=== PATIENT | female | born 1945 | race Caucasian/White ===

== ENCOUNTER 2022-11-07 18:25 | Observation (INO) | payer MEDICARE ==
[2022-11-07] MEDS ORDERED: SODIUM CHLORIDE 0.9% 1,000 ML IV STA (18:43)
[2022-11-07] MEDS ORDERED: DIPH,PERTUS(ACELL)TETVAC-LF 0.5 ML VIAL IM ONE (18:45)
--- NOTE | 2022-11-07 18:58 | ED ---
General Adult HPI - General Chief complaint: Fall Stated complaint: Fall Time Seen by Provider: 11/07/22 18:29 Source: patient, EMS Mode of arrival: EMS Limitations: no limitations - History of Present Illness Initial comments: Patient presents to the ED by ambulance for evaluation. Patient reports that she fell down in her bathroom (patient is unsure how she felt) 5 days ago, and she states that she has been unable to get up off the floor since then. Per EMS, the patient reportedly prevented her from calling for an ambulance for her. Patient reports that her has been bringing her food and orange soda since she fell, so she has been eating and drinking somewhat. Patient is covered with feces on arrival to the ED. Patient states that her neighbor finally called for an ambulance for her today when she found out that the patie nt had been on the ground for 5 days. Patient admits to feeling generally weak. Patient denies having any specific site of pain. Patient denies fever or chills, headache, focal numbness/weakness/neuro deficit, visual changes, neck/back/extremity pain, chest pain, dyspnea, cough or cold symptoms, palpitations, abdominal pain, nausea or vomiting, diarrhea, bloody or melanotic stool, dysuria or urinary symptoms, or any other symptoms or complaints. Patient states that she is unsure of her last tetanus shot. - Related Data Home Medications Medication Instructions Recorded Confirmed Baclofen 10 mg PO TID PRN 11/07/22 11/07/22 Insulin Glargine [Lantus Vial] 20 unit SQ DAILY 11/07/22 11/07/22 glipiZIDE [Glucotrol] 10 mg PO BID 11/07/22 11/07/22 Allergies Allergy/AdvReac Type Severity Reaction Status Date / Time No Known Allergies Allergy Verified 11/07/22 20:29 Review of Systems ROS Statement: Those systems with pertinent positive or pertinent negative responses have been documented in the HPI. ROS Other: All systems not noted in ROS Statement are negative. Past Medical History Past Medical History: Diabetes Mellitus Past Surgical History: No Surgical Hx Reported Smoking Status: Never smoker Past Alcohol Use History: None Reported Past Drug Use History: None Reported General Exam Limitations: no limitations General appearance: alert, in no apparent distress Head exam: Present: atraumatic, normocephalic Eye exam: Present: normal appearance, PERRL, EOMI ENT exam: Present: mucous membranes dry, TM's normal bilaterally Neck exam: Present: other (Trachea is in midline). Absent: tenderness Respiratory exam: Present: normal lung sounds bilaterally. Absent: respiratory distress, wheezes, rales, rhonchi, stridor, chest wall tenderness Cardiovascular Exam: Present: normal rhythm, tachycardia, normal heart sounds, other (Normal radial and dorsalis pedis pulses bilaterally) GI/Abdominal exam: Present: soft. Absent: distended, tenderness, guarding Extremities exam: Present: other (Pelvis is stable and nontender; skin breakdow n/sores are noted to the patient's bilateral buttock folds posteriorly). Absent: tenderness, pedal edema, calf tenderness Back exam: Present: normal inspection. Absent: tenderness Neurological exam: Present: alert, oriented X3, CN II-XII intact. Absent: motor sensory deficit Psychiatric exam: Present: normal affect, normal mood Skin exam: Present: warm, dry, normal color Course Vital Signs 11/07/22 11/07/22 11/07/22 18:29 19:45 20:34 Temperature 97.8 F Pulse Rate 117 H 108 H 107 H Respiratory 18 18 Rate Blood Pressure 135/86 122/77 O2 Sat by Pulse 97 95 96 Oximetry - Reevaluation(s) Reevaluation #1: 11/07/22 21:14 Case, H&P, test results and ED management thus far were discussed with Dr. Ibarra. He accepts hospital admission. He has no further recommendations at this time. 11/07/22 21:21 Patient denies development of any new symptoms while in the ED. Patient remains alert and breathing comfortably. Patient's tachycardia is improving. Patient is aware of her test results, and she agrees with hospital admission at this time. EKG Findings - EKG Comments: EKG Findings:: ED physician interpretation (interpreted by me): Sinus tachycardia, ventricular rate 104 bpm, occasional PVCs, occasional premature supraventricular complexes, normal VA and QRS intervals, normal QT interval, normal axis, no ST or T-wave abnormality Medical Decision Making - Medical Decision Making Was pt. sent in by a medical professional or institution (, PA, ONCOLOGY PATIENT NAVIGATOR, urgent care, hospital, or detention...) When possible be specific @ -No Did you speak to anyone other than the patient for history (EMS, parent, family, police, friend...)? What history was obtained from this source @ -History was also obtained from EMS. Did you review nursing and triage notes (agree or disagree)? Why? @ -I reviewed and agree with nursing and triage notes Were old charts reviewed (outside hosp., previous admission, EMS record, old EKG, old radiological studies, urgent care reports/EKG's, detention records)? Report findings @ -No old charts were reviewed Differential Diagnosis (chest pain, altered mental status, abdominal pain women, abdominal pain men, vaginal bleeding, weakness, fever, dyspnea, syncope, headache, dizziness, GI bleed, back pain, seizure, CVA, palpatations, mental health, musculoskeletal)? @ -Differential Syncope: Fall, contusion, pressure ulcers, skin breakdown, syncope, cardiomyopathy, dysrhythmia,, NE, hypovolemia, anemia, intracranial hemorrhage, seizure, hypoglycemia, hyperglycemia, DKA, dehydration, electrolyte abnormality, renal failure, rhabdomyolysis, this is not meant to be an all-inclusive list. EKG interpreted by me (3pts min.). @ -As above X-rays interpreted by me (1pt min.). @ -Chest x-ray was reviewed myself and shows no acute abnormality. Pelvis x- ray was reviewed myself and shows no acute fracture. I agree with the radiologist's interpretations as above. CT interpreted by me (1pt min.). @ -Noncontrast head CT was reviewed myself and shows no acute abnormality. I agree with the radiologist's interpretation as above. U/S interpreted by me (1pt. min.). @ -None done What testing was considered but not performed or refused? (CT, X-rays, U/S, labs)? Why? @ -None What meds were considered but not given or refused? Why? @ -None Did you discuss the management of the patient with other professionals (professionals i.e. , PA, ONCOLOGY PATIENT NAVIGATOR, lab, RT, psych nurse, dialysis social worker, estate planning attorney, teacher, tactical intelligence officer, high risk case manager)? Give summary @ -As above Was smoking cessation discussed for >3mins.? @ -No Was critical care preformed (if so, how long)? @ -Yes, 45 minutes. Were there social determinants of health that impacted care today? How? (Homelessness, low income, unemployed, alcoholism, drug addiction, transportation, low edu. Level, literacy, decrease access to med. care, [facility], rehab)? @ -No Was there de-escalation of care discussed even if they declined (Discuss DNR or withdrawal of care, Hospice)? DNR status @ -No What co-morbidities impacted this encounter? (DM, HTN, Smoking, COPD, CAD, Cancer, CVA, ARF, Chemo, Hep., AIDS, mental health diagnosis, sleep apnea, morbid obesity)? @ -Diabetes Was patient admitted / discharged? Hospital course, mention meds given and route, prescriptions, significant lab abnormalities, going to OR and other perti nent info. @ -Patient's blood glucose is noted to be elevated, but she is not acidotic and she has a normal anion gap. Patient has been treated with IV fluids and subQ insulin. Patient's creatinine kinase level is also noted to be elevated, which I suspect is due to her prolonged time laying on the floor and subsequent development of mild rhabdomyolysis. Patient has been treated with IV fluids in the ED. Patient's imaging studies are fairly unremarkable. Patient's UA is suggestive of UTI. Patient has been treated with a dose of IV Rocephin in the ED. The rest of the patient's labs are fairly unremarkable. Will admit the patient to the hospital for continued IV fluid hydration and further evaluation/treatment. Dr. Ibrara has accepted hospital admission. Undiagnosed new problem with uncertain prognosis? @ -No Drug Therapy requiring intensive monitoring for toxicity (Heparin, Nitro, Insulin, Cardizem)? @ -No Were any procedures done? @ -No Diagnosis/symptom? @ -Dehydration Acute, or Chronic, or Acute on Chronic? @ -Acute Uncomplicated (without systemic symptoms) or Complicated (systemic symptoms)? @ -default Side effects of treatment? @ -No Exacerbation, Progression, or Severe Exacerbation? @ -No Poses a threat to life or bodily function? How? (Chest pain, USA, NE, pneumonia, PE, COPD, DKA, ARF, appy, cholecystitis, CVA, Diverticulitis, Homicidal, Suicidal, threat to staff... and all critical care pts) @ -No Diagnosis/symptom? @ -Hyperglycemia Acute, or Chronic, or Acute on Chronic? @ -Acute Uncomplicated (without systemic symptoms) or Complicated (systemic symptoms)? @ -default Side effects of treatment? @ -none Exacerbation, Progression, or Severe Exacerbation] @ -no Poses a threat to life or bodily function? @ -no Diagnosis/symptom? @ -Rhabdomyolysis Acute, or Chronic, or Acute on Chronic? @ -Acute Uncomplicated (without systemic symptoms) or Complicated (systemic symptoms)? @ -default Side effects of treatment? @ -none Exacerbation, Progression, or Severe Exacerbation] @ -no Poses a threat to life or bodily function? @ -Yes. If left untreated, further deterioration could lead to renal failure and pose a threat to life. Diagnosis/symptom? @ -UTI Acute, or Chronic, or Acute on Chronic? @ -Acute Uncomplicated (without systemic symptoms) or Complicated (systemic symptoms)? @ -default Side effects of treatment? @ -none Exacerbation, Progression, or Severe Exacerbation] @ -no Poses a threat to life or bodily function? @ -no Diagnosis/symptom? @ -Fall with prolonged time on floor Acute, or Chronic, or Acute on Chronic? @ -Acute Uncomplicated (without systemic symptoms) or Complicated (systemic symptoms)? @ -default Side effects of treatment? @ -none Exacerbation, Progression, or Severe Exacerbation] @ -no Poses a threat to life or bodily function? @ -no - Lab Data Result diagrams: 11/07/22 18:57 11/07/22 18:57 Lab Results 11/07/22 11/07/22 11/07/22 Range/Units 18:57 18:57 18:57 WBC 7.8 (3.8-10.6) k/uL RBC 4.56 (3.80-5.40) m/uL Hgb 14.1 (11.4-16.0) gm/dL Hct 45.4 (34.0-46.0) % MCV 99.6 (80.0-100.0) fL MCH 30.8 (25.0-35.0) pg MCHC 30.9 L (31.0-37.0) g/dL RDW 12.5 (11.5-15.5) % Plt Count 257 (150-450) k/uL MPV 9.3 Neutrophils % 76 % Lymphocytes % 14 % Monocytes % 7 % Eosinophils % 1 % Basophils % 0 % Neutrophils # 5.9 (1.3-7.7) k/uL Lymphocytes # 1.1 (1.0-4.8) k/uL Monocytes # 0.5 (0-1.0) k/uL Eosinophils # 0.1 (0-0.7) k/uL Basophils # 0.0 (0-0.2) k/uL Hypochromasia Slight PT 10.4 (9.0-12.0) sec INR 1.0 (<1.2) APTT 21.5 L (22.0-30.0) sec Sodium 134 L (137-145) mmol/L Potassium 4.2 (3.5-5.1) mmol/L Chloride 94 L (98-107) mmol/L Carbon Dioxide 29 (22-30) mmol/L Anion Gap 11 mmol/L BUN 43 H (7-17) mg/dL Creatinine 1.15 H (0.52-1.04) mg/dL Est GFR (CKD-EPI)AfAm 54 (>60 ml/min/1.73 sqM) Est GFR (CKD-EPI)NonAf 47 (>60 ml/min/1.73 sqM) Glucose 677 H* (74-99) mg/dL POC Glucose (mg/dL) (70-110) mg/dL POC Glu Sole Polisher ID Plasma Lactic Acid Nic (0.7-2.0) mmol/L Calcium 9.4 (8.4-10.2) mg/dL Magnesium 1.7 (1.6-2.3) mg/dL Total Bilirubin 1.0 (0.2-1.3) mg/dL AST 37 H (14-36) U/L ALT 23 (4-34) U/L Alkaline Phosphatase 112 (38-126) U/L Creatine Kinase 725 H (30-135) U/L Troponin I (0.000-0.034) ng/mL NT-Pro-B Natriuret Pep pg/mL Total Protein 6.8 (6.3-8.2) g/dL Albumin 3.7 (3.5-5.0) g/dL Lipase 233 (23-300) U/L Urine Color Urine Appearance (Clear) Urine pH (5.0-8.0) Ur Specific Carney (1.001-1.035) Urine Protein (Negative) Urine Glucose (UA) (Negative) Urine Ketones (Negative) Urine Blood (Negative) Urine Nitrite (Negative) Urine Bilirubin (Negative) Urine Urobilinogen (<2.0) mg/dL Ur Leukocyte Esterase (Negative) Urine RBC (0-5) /hpf Urine WBC (0-5) /hpf Ur Squamous Epith Cells (0-4) /hpf Urine Bacteria (None) /hpf Urine Mucus (None) /hpf Acetone, Qual (Negative) 11/07/22 11/07/22 11/07/22 Range/Units 18:57 18:57 18:57 WBC (3.8-10.6) k/uL RBC (3.80-5.40) m/uL Hgb (11.4-16.0) gm/dL Hct (34.0-46.0) % MCV (80.0-100.0) fL MCH (25.0-35.0) pg MCHC (31.0-37.0) g/dL RDW (11.5-15.5) % Plt Count (150-450) k/uL MPV Neutrophils % % Lymphocytes % % Monocytes % % Eosinophils % % Basophils % % Neutrophils # (1.3-7.7) k/uL Lymphocytes # (1.0-4.8) k/uL Monocytes # (0-1.0) k/uL Eosinophils # (0-0.7) k/uL Basophils # (0-0.2) k/uL Hypochromasia PT (9.0-12.0) sec INR (<1.2) APTT (22.0-30.0) sec Sodium (137-145) mmol/L Potassium (3.5-5.1) mmol/L Chloride (98-107) mmol/L Carbon Dioxide (22-30) mmol/L Anion Gap mmol/L BUN (7-17) mg/dL Creatinine (0.52-1.04) mg/dL Est GFR (CKD-EPI)AfAm (>60 ml/min/1.73 sqM) Est GFR (CKD-EPI)NonAf (>60 ml/min/1.73 sqM) Glucose (74-99) mg/dL POC Glucose (mg/dL) (70-110) mg/dL POC Glu Sole Polisher ID Plasma Lactic Acid Nic 1.8 (0.7-2.0) mmol/L Calcium (8.4-10.2) mg/dL Magnesium (1.6-2.3) mg/dL Total Bilirubin (0.2-1.3) mg/dL AST (14-36) U/L ALT (4-34) U/L Alkaline Phosphatase (38-126) U/L Creatine Kinase (30-135) U/L Troponin I 0.017 (0.000-0.034) ng/mL NT-Pro-B Natriuret Pep 639 pg/mL Total Protein (6.3-8.2) g/dL Albumin (3.5-5.0) g/dL Lipase (23-300) U/L Urine Color Urine Appearance (Clear) Urine pH (5.0-8.0) Ur Specific Carney (1.001-1.035) Urine Protein (Negative) Urine Glucose (UA) (Negative) Urine Ketones (Negative) Urine Blood (Negative) Urine Nitrite (Negative) Urine Bilirubin (Negative) Urine Urobilinogen (<2.0) mg/dL Ur Leukocyte Esterase (Negative) Urine RBC (0-5) /hpf Urine WBC (0-5) /hpf Ur Squamous Epith Cells (0-4) /hpf Urine Bacteria (None) /hpf Urine Mucus (None) /hpf Acetone, Qual (Negative) 11/07/22 11/07/22 11/07/22 Range/Units 18:57 20:19 20:56 WBC (3.8-10.6) k/uL RBC (3.80-5.40) m/uL Hgb (11.4-16.0) gm/dL Hct (34.0-46.0) % MCV (80.0-100.0) fL MCH (25.0-35.0) pg MCHC (31.0-37.0) g/dL RDW (11.5-15.5) % Plt Count (150-450) k/uL MPV Neutrophils % % Lymphocytes % % Monocytes % % Eosinophils % % Basophils % % Neutrophils # (1.3-7.7) k/uL Lymphocytes # (1.0-4.8) k/uL Monocytes # (0-1.0) k/uL Eosinophils # (0-0.7) k/uL Basophils # (0-0.2) k/uL Hypochromasia PT (9.0-12.0) sec INR (<1.2) APTT (22.0-30.0) sec Sodium (137-145) mmol/L Potassium (3.5-5.1) mmol/L Chloride (98-107) mmol/L Carbon Dioxide (22-30) mmol/L Anion Gap mmol/L BUN (7-17) mg/dL Creatinine (0.52-1.04) mg/dL Est GFR (CKD-EPI)AfAm (>60 ml/min/1.73 sqM) Est GFR (CKD-EPI)NonAf (>60 ml/min/1.73 sqM) Glucose (74-99) mg/dL POC Glucose (mg/dL) 583 H (70-110) mg/dL POC Glu Sole Polisher ID Corie Johnston Plasma Lactic Acid Nic (0.7-2.0) mmol/L Calcium (8.4-10.2) mg/dL Magnesium (1.6-2.3) mg/dL Total Bilirubin (0.2-1.3) mg/dL AST (14-36) U/L ALT (4-34) U/L Alkaline Phosphatase (38-126) U/L Creatine Kinase (30-135) U/L Troponin I (0.000-0.034) ng/mL NT-Pro-B Natriuret Pep pg/mL Total Protein (6.3-8.2) g/dL Albumin (3.5-5.0) g/dL Lipase (23-300) U/L Urine Color Colorless Urine Appearance Clear (Clear) Urine pH 5.0 (5.0-8.0) Ur Specific Carney 1.023 (1.001-1.035) Urine Protein Negative (Negative) Urine Glucose (UA) 4+ H (Negative) Urine Ketones 1+ H (Negative) Urine Blood Negative (Negative) Urine Nitrite Positive H (Negative) Urine Bilirubin Negative (Negative) Urine Urobilinogen <2.0 (<2.0) mg/dL Ur Leukocyte Esterase Moderate H (Negative) Urine RBC 1 (0-5) /hpf Urine WBC 29 H (0-5) /hpf Ur Squamous Epith Cells <1 (0-4) /hpf Urine Bacteria Occasional H (None) /hpf Urine Mucus Rare H (None) /hpf Acetone, Qual Positive (Negative) - Radiology Data Chest x-ray: Low lung volumes without focal airspace consolidation. Prominent cardiac silhouette and perihilar markings are likely accentuated from low lung volumes. Pelvis x-ray: No acute osseous pathology. Noncontrast head CT: No acute intracranial process. Critical Care Time Critical Care Time: Yes Total Critical Care Time: 45 Disposition Clinical Impression: Fall, Sore on leg, Dehydration, Hyperglycemia, Rhabdomyolysis, UTI (urinary tract infection) Disposition: ADMITTED IP TO THIS [facility] Condition: Stable Is patient prescribed a controlled substance at d/c from ED?: No Referrals: Delmy Morris MD [Primary Care Provider] - 1-2 days Time of Disposition: 21:19
[2022-11-07 19:44] LABS: Basophils % (A) 0 %; Eosinophils # (A) 0.1 k/uL (0-0.7); Eosinophils % (A) 1 %; HCT 45.4 % (34.0-46.0); HGB 14.1 gm/dL (11.4-16.0); Hypochromasia Slight; Lymphocytes # (A) 1.1 k/uL (1.0-4.8); Lymphocytes % (A) 14 %; MCH 30.8 pg (25.0-35.0); MCHC 30.9 g/dL (31.0-37.0); MCV 99.6 fL (80.0-100.0); Mean Platelet Volume 9.3; Monocytes # (A) 0.5 k/uL (0-1.0); Monocytes % (A) 7 %; Neutrophils # (A) 5.9 k/uL (1.3-7.7); Neutrophils % (A) 76 %; Platelet Count 257 k/uL (150-450); RBC 4.56 m/uL (3.80-5.40); RDW 12.5 % (11.5-15.5); WBC 7.8 k/uL (3.8-10.6)
[2022-11-07 20:06] LABS: Albumin 3.7 g/dL (3.5-5.0); Calcium 9.4 mg/dL (8.4-10.2); Magnesium 1.7 mg/dL (1.6-2.3); Potassium 4.2 mmol/L (3.5-5.1); Total Protein 6.8 g/dL (6.3-8.2)
[2022-11-07 20:07] LABS: Partial Thromboplastin Time 21.5 sec (22.0-30.0)
[2022-11-07 20:14] LABS: Prothrombin Time 10.4 sec (9.0-12.0)
[2022-11-07 20:19] LABS: Appearance,Urine Clear (Clear); Bacteria,Urine Occasional /hpf; Bilirubin,Urine Negative (Negative); Blood,Urine Negative (Negative); Color,Urine Colorless; Glucose,Urine (UA) 4+ (Negative); Ketones,Urine 1+ (Negative); Leukocyte Esterase,Urine Moderate (Negative); Mucus,Urine Rare /hpf; Nitrite,Urine Positive (Negative); Protein,Urine Negative (Negative); RBC,Urine 1 /hpf (0-5); Specific Gravity,Urine 1.023 (1.001-1.035); Squamous Epithelial Cell,Urine <1 /hpf (0-4); Urobilinogen,Urine <2.0 mg/dL (<2.0); WBC,Urine 29 /hpf (0-5)
[2022-11-07] MEDS ORDERED: INSULIN REGULAR 100 UNIT/ML VIAL (IM/SQ) SQ STA (20:20)
[2022-11-07] MEDS ORDERED: SODIUM CHLORIDE 0.9% 500 ML 500 ML IV ONE (20:20)
--- NOTE | 2022-11-07 20:31 | CT ---
EXAMINATION TYPE: CT brain wo con CT DLP: mGycm, Automated exposure control for dose reduction was used. DATE OF EXAM: 11/07/2022 8:14 PM COMPARISON: No relevant priors. CLINICAL INDICATION:Female, 76 years old with history of weakness, TECHNIQUE: Brain: Axial CT images of the brain were obtained with coronal and sagittal reformats created and rev iewed. Contrast used: None. Oral contrast used: None. FINDINGS: Brain: Extra-axial spaces: No abnormal extra-axial fluid collections. Ventricular system: Mildly prominent, but within normal limit. Cerebral parenchyma: No acute intraparenchymal hemorrhage or mass effect. The wilde-white junction is well differentiated. Cerebellum: Unremarkable. Mass effect: No evidence of midline shift. Intracranial vasculature: Atherosclerotic calcifications of the intracranial vessels. Soft tissues: Normal. Calvarium/osseous structures: No depressed skull fracture. Paranasal sinuses and mastoid air cells: Mild scattered paranasal sinus disease.. Mastoid air cells a re Clear Visualized orbits: Orbital contents are intact. IMPRESSION: No acute intracranial process.
--- NOTE | 2022-11-07 20:39 | XR ---
EXAMINATION TYPE: XR chest 1V portable DATE OF EXAM: 11/07/2022 8:08 PM COMPARISON: No relevant priors TECHNIQUE: XR chest 1V portable . CLINICAL INDICATION:Female, 76 years old with history of weakness; FINDINGS: Lungs/Pleura: Low lung volumes are present. There is no evidence of pleural effusion, focal consolida tion, or pneumothorax. Pulmonary vascularity: Prominent perihilar vascular markings which is likely accentuated from low jim g volumes. Heart/mediastinum: Cardiomediastinal silhouette is prominent in size. Musculoskeletal: No acute osseous pathology. IMPRESSION: Low lung volumes without focal airspace consolidation. Prominent cardiac silhouette and perihilar mar kings are likely accentuated from low lung volumes.
--- NOTE | 2022-11-07 20:42 | XR ---
EXAMINATION TYPE: XR pelvis AP view DATE OF EXAM: 11/07/2022 8:08 PM INDICATION: Patient age:Female; 76 years old; Reason for study: fall; [facility]. COMPARISON: None. TECHNIQUE: The pelvis was examined in the AP projection. FINDINGS: No evidence of any acute osseous pathology, joint dislocation, or soft tissue swelling. Mil d degenerative changes of the lumbar spine. IMPRESSION: No acute osseous pathology.
[2022-11-07 20:57] LABS: Glucose,Whole Blood 583 mg/dL (70-110)
[2022-11-07] MEDS ORDERED: NALOXONE 0.4 MG/ML 1 ML VIAL IV PRN (21:19)
[2022-11-07 22:02] LABS: Glucose,Whole Blood 498 mg/dL (70-110)
[2022-11-07] MEDS: SODIUM CHLORIDE 0.9% 1,000 ML IV SCH (22:38)
[2022-11-07 23:17] LABS: Glucose,Whole Blood 485 mg/dL (70-110)
[2022-11-07] MEDS ORDERED: INSULIN DETEMIR (LEVEMIR) 100 UNIT/ML SYR SQ STA (23:37)
[2022-11-07] MEDS ORDERED: DEXTROSE 50% SYRINGE 50 ML IVP PRN ×2 (23:38)
[2022-11-07] MEDS ORDERED: INSULIN ASPART (NovoLOG) 100 UNIT/ML VIAL SQ ONE (23:38)
[2022-11-08 06:10] LABS: Glucose,Whole Blood 75 mg/dL (70-110)
[2022-11-08] MEDS: INSULIN ASPART (NovoLOG) 100 UNIT/ML VIAL SQ SCH ×4 (06:12→20:59)
[2022-11-08 08:23] LABS: Basophils % (A) 0 %; Eosinophils # (A) 0.2 k/uL (0-0.7); Eosinophils % (A) 2 %; HCT 41.2 % (34.0-46.0); HGB 13.2 gm/dL (11.4-16.0); Lymphocytes # (A) 1.4 k/uL (1.0-4.8); Lymphocytes % (A) 19 %; MCH 30.7 pg (25.0-35.0); MCV 95.7 fL (80.0-100.0); Mean Platelet Volume 9.8; Monocytes # (A) 0.5 k/uL (0-1.0); Monocytes % (A) 6 %; Neutrophils # (A) 5.4 k/uL (1.3-7.7); Neutrophils % (A) 70 %; Platelet Count 226 k/uL (150-450); RDW 12.7 % (11.5-15.5); WBC 7.6 k/uL (3.8-10.6)
[2022-11-08 08:37] LABS: Albumin 3.2 g/dL (3.5-5.0); Calcium 9.1 mg/dL (8.4-10.2); Potassium 3.4 mmol/L (3.5-5.1); Total Bilirubin 0.9 mg/dL (0.2-1.3); Total Protein 6.2 g/dL (6.3-8.2)
[2022-11-08] MEDS ORDERED: LACTULOSE 20 GM/30 ML CUP PO PRN (10:19)
[2022-11-08] MEDS ORDERED: MELATONIN 3 MG TABLET PO PRN (10:19)
[2022-11-08] MEDS ORDERED: CALCIUM CARBONATE 500 MG CHEWABLE PO PRN (10:19)
[2022-11-08] MEDS ORDERED: LORazepam 0.5 MG TAB PO PRN (10:19)
[2022-11-08] MEDS ORDERED: ONDANSETRON 4 MG/2 ML VIAL IVP PRN (10:19)
[2022-11-08] MEDS ORDERED: glipiZIDE 10 MG TAB PO SCH (10:45)
[2022-11-08 11:37] LABS: Glucose,Whole Blood 292 mg/dL (70-110)
[2022-11-08] MEDS ORDERED: POTASSIUM CHLORIDE ER 20 MEQ TAB.ER PO STA (12:05)
[2022-11-08] MEDS: LACTATED RINGERS 1,000 ML IV SCH (12:12)
[2022-11-08] MEDS: INSULIN DETEMIR (LEVEMIR) 100 UNIT/ML SYR SQ SCH (12:13)
--- NOTE | 2022-11-08 14:02 | P.HPIM ---
History of Present Illness H&P Date: 11/08/22 Chief Complaint: On the floor This is a pleasant 76-year-old patient, follows Dr. Delmy Morris. Patient on the baseline is somewhat unsteady in walking. Does not use a cane or walker. She fell down in the bathroom about 5 years ago. Not sure how that happened but does note dizziness lightheadedness or any chest pain or palpitation. Patient prevented her from [place] the EMS was somewhat embarrassed about the same. was bringing off or to the bathroom. When brought into the ER she was, in his facies. And the neighbor finally called the ambulance. She is having some aches and pains but no severe pain. Negative for fracture in the ER. No fever no chills. Patient having some fullness in the lower pelvic area and some urine discomfort. Also had a glucose of 677 in the ER. Given IV fluids. Decreased appetite Review of systems: GEN.: Tired, decreased appetite EYES: None HEENT: None NECK: None RESPIRATORY: None CARDIOVASCULAR: None GASTROINTESTINAL: None GENITOURINARY: Urinary incontinence, some dysuria MUSCULOSKELETAL: Aches and pains LYMPHATICS: None HEMATOLOGICAL: None PSYCHIATRY: None NEUROLOGICAL: None Past medical history to include: Diabetes, arthritis Social history: Does not smoke or drink alcohol. . Physical examination: VITAL SIGNS: 98.8, 120, 16, 132/76, 93% room air GENERAL: BMI 37.8, declining but awake tired. EYES: Pupils equal. Conjunctiva normal. HEENT: External appearance of nose and ears normal, oral cavity grossly normal. NECK: JVD not raised; masses not palpable. HEART: First and second heart sounds are normal; no edema. LUNGS: Respiratory rate normal; clear to auscultation. ABDOMEN: Soft, nontender, liver spleen not palpable, no masses palpable. PSYCH: Alert and oriented x3; mood and affect normal. MUSCULOSKELETAL:No Clubbing/cyanosis;muscles-grossly intact. OA NEUROLOGICAL: Cranial nerves grossly intact; no facial asymmetry, power and sensation grossly intact. LYMPHATICS: No lymph nodes palpable in the axilla and neck INVESTIGATIONS, reviewed in the clinical context: November 08: White count 7.6 hemoglobin 13.2 platelets 226 potassium 3.4 BUN 33 creatinine 0.96 blood glucose 172 November 07: White count 7.8 hemoglobin 14.1 platelets 257 dose potassium 4.2 BUN 43 creatinine 1.15 glucose 677 Troponin I 0.017 proBNP 639 UA positive for nitrite, leukoesterase, WBC Serum acetone positive. Creatinine kinase: 725 Assessment and plan: -Acute diabetic ketoacidosis. Accu-Cheks are coming down. Diabetic diet. Follow Accu-Cheks -Patient had a fall, no precipitating factor including dizziness lightheadedness, chest pain palpitation. May be mechanical from losing balance. -Acute UTI with cystitis IV ceftriaxone -Diabetes mellitus type 2, uncontrolled with hypoglycemia Patient's current poor appetite. Levemir. Hold oral hypoglycemic -Obesity BMI 37.8 Weight loss measures -Baseline gait dysfunction possibly precipitating fall. PTOT. -Full code Past Medical History Past Medical History: Diabetes Mellitus History of Any Multi-Drug Resistant Organisms: None Reported Past Surgical History: No Surgical Hx Reported Smoking Status: Never smoker Past Alcohol Use History: None Reported Past Drug Use History: None Reported Medications and Allergies Home Medications Medication Instructions Recorded Confirmed Type Baclofen 10 mg PO TID PRN 11/07/22 11/07/22 History Insulin Glargine [Lantus Vial] 20 unit SQ DAILY 11/07/22 11/07/22 History glipiZIDE [Glucotrol] 10 mg PO BID 11/07/22 11/07/22 History Allergies Allergy/AdvReac Type Severity Reaction Status Date / Time No Known Allergies Allergy Verified 11/07/22 20:29 Physical Exam Vitals: Vital Signs Temp Pulse Pulse Resp BP BP Pulse Ox 11/08/22 09:50 96 11/08/22 09:45 98.8 F 120 H 16 132/76 93 L 11/08/22 04:00 119 H 16 123/71 94 L 11/07/22 23:00 97.9 F 117 H 16 140/67 96 11/07/22 22:30 115 H 11/07/22 22:26 98 F 20 134/61 96 11/07/22 21:41 105 H 16 153/88 97 11/07/22 20:34 107 H 96 11/07/22 19:45 108 H 18 122/77 95 11/07/22 18:29 97.8 F 117 H 18 135/86 97 Intake and Output 11/07/22 11/08/22 11/08/22 22:59 06:59 14:59 Intake Total 540 180 Output Total 300 Balance 240 180 Intake: Oral 540 180 Output: Urine 300 Other: Voiding Method External Catheter Weight 99.79 kg 99.79 kg Results CBC & Chem 7: 11/08/22 07:46 11/08/22 07:46 Labs: Abnormal Lab Results - Last 24 Hours (Table) 11/07/22 11/07/22 11/07/22 Range/Units 18:57 18:57 18:57 MCHC 30.9 L (31.0-37.0) g/dL APTT 21.5 L (22.0-30.0) sec Sodium 134 L (137-145) mmol/L Potassium (3.5-5.1) mmol/L Chloride 94 L (98-107) mmol/L BUN 43 H (7-17) mg/dL Creatinine 1.15 H (0.52-1.04) mg/dL Glucose 677 H* (74-99) mg/dL POC Glucose (mg/dL) (70-110) mg/dL AST 37 H (14-36) U/L Creatine Kinase 725 H (30-135) U/L Total Protein (6.3-8.2) g/dL Albumin (3.5-5.0) g/dL Urine Glucose (UA) (Negative) Urine Ketones (Negative) Urine Nitrite (Negative) Ur Leukocyte Esterase (Negative) Urine WBC (0-5) /hpf Urine Bacteria (None) /hpf Urine Mucus (None) /hpf 11/07/22 11/07/22 11/07/22 Range/Units 18:57 20:56 21:59 MCHC (31.0-37.0) g/dL APTT (22.0-30.0) sec Sodium (137-145) mmol/L Potassium (3.5-5.1) mmol/L Chloride (98-107) mmol/L BUN (7-17) mg/dL Creatinine (0.52-1.04) mg/dL Glucose (74-99) mg/dL POC Glucose (mg/dL) 583 H 498 H (70-110) mg/dL AST (14-36) U/L Creatine Kinase (30-135) U/L Total Protein (6.3-8.2) g/dL Albumin (3.5-5.0) g/dL Urine Glucose (UA) 4+ H (Negative) Urine Ketones 1+ H (Negative) Urine Nitrite Positive H (Negative) Ur Leukocyte Esterase Moderate H (Negative) Urine WBC 29 H (0-5) /hpf Urine Bacteria Occasional H (None) /hpf Urine Mucus Rare H (None) /hpf 11/07/22 11/08/22 11/08/22 Range/Units 23:15 07:46 07:46 MCHC (31.0-37.0) g/dL APTT (22.0-30.0) sec Sodium (137-145) mmol/L Potassium 3.4 L (3.5-5.1) mmol/L Chloride (98-107) mmol/L BUN 33 H (7-17) mg/dL Creatinine (0.52-1.04) mg/dL Glucose 172 H (74-99) mg/dL POC Glucose (mg/dL) 485 H (70-110) mg/dL AST (14-36) U/L Creatine Kinase 345 H (30-135) U/L Total Protein 6.2 L (6.3-8.2) g/dL Albumin 3.2 L (3.5-5.0) g/dL Urine Glucose (UA) (Negative) Urine Ketones (Negative) Urine Nitrite (Negative) Ur Leukocyte Esterase (Negative) Urine WBC (0-5) /hpf Urine Bacteria (None) /hpf Urine Mucus (None) /hpf
[2022-11-08 16:47] LABS: Glucose,Whole Blood 307 mg/dL (70-110)
[2022-11-08 19:57] LABS: Glucose,Whole Blood 336 mg/dL (70-110)
[2022-11-08] MEDS: ACETAMINOPHEN TAB 325 MG TAB PO PRN (21:00)
[2022-11-09 06:03] LABS: Glucose,Whole Blood 79 mg/dL (70-110)
[2022-11-09 07:31] LABS: Calcium 8.7 mg/dL (8.4-10.2); Potassium 3.6 mmol/L (3.5-5.1)
[2022-11-09 08:37] LABS: Glucose,Whole Blood 155 mg/dL (70-110)
[2022-11-09] MEDS: INSULIN ASPART (NovoLOG) 100 UNIT/ML VIAL SQ SCH ×4 (08:39→21:11)
[2022-11-09] MEDS: INSULIN DETEMIR (LEVEMIR) 100 UNIT/ML SYR SQ SCH (08:39)
[2022-11-09] MEDS: BACLOFEN 10 MG TAB PO PRN (08:42)
[2022-11-09] MEDS: ACETAMINOPHEN TAB 325 MG TAB PO PRN (08:42)
[2022-11-09] MEDS: LACTATED RINGERS 1,000 ML IV SCH ×2 (10:40→16:41)
[2022-11-09 11:27] LABS: Glucose,Whole Blood 255 mg/dL (70-110)
[2022-11-09 13:01] VITALS: BMI 37.8
--- NOTE | 2022-11-09 14:41 | P.PN ---
Progress Note - Text Progress Note Date: 11/09/22 Chief Complaint: On the floor This is a pleasant 76-year-old patient, follows Dr. Delmy Morris. Patient on the baseline is somewhat unsteady in walking. Does not use a cane or walker. She fell down in the bathroom about 5 years ago. Not sure how that happened but does note dizziness lightheadedness or any chest pain or palpitation. Patient prevented her from [place] the EMS was somewhat embarrassed about the same. was bringing off or to the bathroom. When brought into the ER she was, in his facies. And the neighbor finally called the ambulance. She is having some aches and pains but no severe pain. Negative for fracture in the ER. No fever no chills. Patient having some fullness in the lower pelvic area and some urine discomfort. Also had a glucose of 677 in the ER. Given IV fluids. Decreased appetite November 09: Feeling better. Sitting at the edge of the bed. Eating well. Her left PTOT see the patient for a possible rehab. Discussed with the patient, patient's son and [id number] the bedside. Active Medications Acetaminophen (Acetaminophen Tab 325 Mg Tab) 650 mg PO Q6HR PRN PRN Reason: Mild Pain or Fever > 100.5 Last Admin: 11/09/22 08:42 Dose: 650 mg Baclofen (Baclofen 10 Mg Tab) 10 mg PO TID PRN PRN Reason: Pain Last Admin: 11/09/22 08:42 Dose: 10 mg Calcium Carbonate/Glycine (Calcium Carbonate 500 Mg Chewable) 1,000 mg PO Q4HR PRN PRN Reason: Dyspepsia Dextrose/Water (Dextrose 50% Syringe 50 Ml) 25 ml IVP PER PROTOCOL PRN; Protocol PRN Reason: Hypoglycemia Dextrose/Water (Dextrose 50% Syringe 50 Ml) 50 ml IVP PER PROTOCOL PRN; Protocol PRN Reason: Hypoglycemia Lactated Ringer's (Lactated Ringers) 1,000 mls @ 75 mls/hr IV .[id number] [facility] Last Admin: 11/09/22 10:40 Dose: Not Given Ceftriaxone Sodium 1 gm/ (Sodium Chloride) 50 mls @ 100 mls/hr IVPB Q12HR [facility]ILA; Protocol Last Admin: 11/09/22 08:39 Dose: 100 mls/hr Insulin Aspart (Insulin Aspart (Novolog) 100 Unit/Ml Vial) 0 unit SQ ACHS [facility]; Protocol Last Admin: 11/09/22 08:39 Dose: Not Given Insulin Detemir (Insulin Detemir (Levemir) 100 Unit/Ml Syr) 20 unit SQ DAILY@0700 [facility] Last Admin: 11/09/22 08:39 Dose: 20 unit Lactulose (Lactulose 20 Gm/30 Ml Cup) 20 gm PO DAILY PRN PRN Reason: Constipation Lorazepam (Lorazepam 0.5 Mg Tab) 0.5 mg PO Q6HR PRN PRN Reason: Anxiety Melatonin (Melatonin 3 Mg Tablet) 3 mg PO HS PRN PRN Reason: Insomnia Naloxone HCl (Naloxone 0.4 Mg/Ml 1 Ml Vial) 0.2 mg IV Q2M PRN PRN Reason: Opioid Reversal Ondansetron HCl (Ondansetron 4 Mg/2 Ml Vial) 4 mg IVP Q8HR PRN PRN Reason: Nausea And Vomiting Past medical history to include: Diabetes, arthritis Social history: Does not smoke or drink alcohol. . Physical examination: VITAL SIGNS: 98, 111, 16, 135-70, 96% room air GENERAL: Sitting edge of the bed, comfortable EYES: Pupils equal. Conjunctiva normal. HEENT: External appearance of nose and ears normal, oral cavity grossly normal. NECK: JVD not raised; masses not palpable. HEART: First and second heart sounds are normal; no edema. LUNGS: Respiratory rate normal; clear to auscultation. ABDOMEN: Soft, nontender, liver spleen not palpable, no masses palpable. PSYCH: Alert and oriented x3; mood and affect normal. MUSCULOSKELETAL:No Clubbing/cyanosis;muscles-grossly intact. OA INVESTIGATIONS, reviewed in the clinical context: November 09: Potassium 3.6 creatinine 0.91 November 08: White count 7.6 hemoglobin 13.2 platelets 226 potassium 3.4 BUN 33 creatinine 0.96 blood glucose 172 November 07: White count 7.8 hemoglobin 14.1 platelets 257 dose potassium 4.2 BUN 43 creatinine 1.15 glucose 677 Troponin I 0.017 proBNP 639 UA positive for nitrite, leukoesterase, WBC Serum acetone positive. Creatinine kinase: 725 Assessment and plan: -Acute diabetic ketoacidosis. Improved Accu-Cheks are coming down. Diabetic diet. Follow Accu-Cheks -Patient had a fall, no precipitating factor including dizziness lightheadedness, chest pain palpitation. May be mechanical from losing balance. -Acute UTI with cystitis IV ceftriaxone -Diabetes mellitus type 2, uncontrolled with hyperglycemia Patient's current poor appetite. Levemir. Hold oral hypoglycemic -Obesity BMI 37.8 Weight loss measures -Baseline gait dysfunction possibly precipitating fall. PTOT. -Full code PTOT. Continue current medications. Change to oral Omnicef. Questions answered. Discussed with case maker.
[2022-11-09 16:19] LABS: Glucose,Whole Blood 283 mg/dL (70-110)
[2022-11-09] MEDS: SODIUM CHLORIDE 0.9% 1,000 ML IV SCH (19:52)
[2022-11-09 19:59] LABS: Glucose,Whole Blood 315 mg/dL (70-110)
[2022-11-10 03:54] VITALS: TEMP 98.3
[2022-11-10 06:02] LABS: Glucose,Whole Blood 100 mg/dL (70-110)
[2022-11-10] MEDS: LACTATED RINGERS 1,000 ML IV SCH (06:09)
[2022-11-10] MEDS: INSULIN ASPART (NovoLOG) 100 UNIT/ML VIAL SQ SCH ×2 (06:09→12:29)
[2022-11-10] MEDS: INSULIN DETEMIR (LEVEMIR) 100 UNIT/ML SYR SQ SCH (06:44)
[2022-11-10 08:55] VITALS: RESP 18
[2022-11-10] MEDS: ACETAMINOPHEN TAB 325 MG TAB PO PRN (08:55)
[2022-11-10] MEDS: BACLOFEN 10 MG TAB PO PRN (08:55)
[2022-11-10 11:57] LABS: Glucose,Whole Blood 343 mg/dL (70-110)
[2022-11-10 12:26] VITALS: BP 139/67; PULSE 111
[2022-11-10] MEDS: metFORMIN 500 MG TAB PO SCH ×2 (13:53)
--- NOTE | 2022-11-10 14:04 | P.DS ---
Providers Date of admission: 11/07/22 21:21 Expected date of discharge: 11/10/22 Attending physician: Trevor Ibarra Primary care physician: Delmy Morris [facility] Course: Chief Complaint: On the floor This is a pleasant 76-year-old patient, follows Dr. Delmy Morris. Patient on the baseline is somewhat unsteady in walking. Does not use a cane or walker. She fell down in the bathroom about 5 years ago. Not sure how that happened but does note dizziness lightheadedness or any chest pain or palpitation. Patient prevented her from [place] the EMS was somewhat embarrassed about the same. was bringing off or to the bathroom. When brought into the ER she was, in his facies. And the neighbor finally called the ambulance. She is having some aches and pains but no severe pain. Negative for fracture in the ER. No fever no chills. Patient having some fullness in the lower pelvic area and some urine discomfort. Also had a glucose of 677 in the ER. Given IV fluids. Decreased appetite November 09: Feeling better. Sitting at the edge of the bed. Eating well. Her left PTOT see the patient for a possible rehab. Discussed with the patient, patient's son and [id number] the bedside. November 10: Sitting up in bed. Eating well. Accu-Cheks to the higher side. Metformin 500 mg before meals 3 times a day added. Continue Levemir. Confirmed with social work program coordinator. Going to [facility] rehab [facility] today. Discussed with the patient, son and the [id number] at the bedside. Questions answered. 3 more days of Ceftin to complete course Discussion and discharge planning more than 35 minutes Past medical history to include: Diabetes, arthritis Social history: Does not smoke or drink alcohol. . Physical examination: VITAL SIGNS: 98.3, 99, 18, 11/, 97% room air GENERAL: Sitting edge of the bed, eating lunch EYES: Pupils equal. Conjunctiva normal. HEENT: External appearance of nose and ears normal, oral cavity grossly normal. NECK: JVD not raised; masses not palpable. HEART: First and second heart sounds are normal; no edema. LUNGS: Respiratory rate normal; clear to auscultation. ABDOMEN: Soft, nontender, liver spleen not palpable, no masses palpable. PSYCH: Alert and oriented x3; mood and affect normal. MUSCULOSKELETAL:No Clubbing/cyanosis;muscles-grossly intact. OA INVESTIGATIONS, reviewed in the clinical context: COVID-19: Not detected November 09: Potassium 3.6 creatinine 0.91 November 08: White count 7.6 hemoglobin 13.2 platelets 226 potassium 3.4 BUN 33 creatinine 0.96 blood glucose 172 November 07: White count 7.8 hemoglobin 14.1 platelets 257 dose potassium 4.2 BUN 43 creatinine 1.15 glucose 677 Troponin I 0.017 proBNP 639 UA positive for nitrite, leukoesterase, WBC Serum acetone positive. Creatinine kinase: 725 Assessment and plan: -Acute diabetic ketoacidosis. Improved Accu-Cheks are coming down. Diabetic diet. Follow Accu-Cheks -Patient had a fall, no precipitating factor including dizziness lightheadedness, chest pain palpitation. mechanical from losing balance. -Acute UTI with cystitis IV ceftriaxone. 3 more days of Ceftin. -Diabetes mellitus type 2, uncontrolled with hyperglycemia Eating well Levemir. 24 units daily. Add metformin 5 mg before meals 3 times a day -Obesity BMI 37.8 Weight loss measures -Baseline gait dysfunction possibly precipitating fall. PTOT. -Full code Disposition: Rehab at [facility] Patient Condition at Discharge: Stable Plan - Discharge Summary Discharge Rx Participant: Yes New Discharge Prescriptions: New Lactulose [Cephulac] 20 gm PO DAILY PRN ml PRN Reason: Constipation Acetaminophen Tab [Tylenol] 650 mg PO Q6HR PRN tab PRN Reason: Mild Pain Or Fever > 100.5 metFORMIN HCL [Glucophage] 500 mg PO TID #1 tablet INSULIN ASPART (NovoLOG) [NovoLOG (formulary)] 0 unit SQ ACHS each cefUROXime axetiL [Ceftin] 500 mg PO BID #6 tab Continue Insulin Glargine [Lantus Vial] 20 unit SQ DAILY Baclofen 10 mg PO TID PRN PRN Reason: Pain Discontinued glipiZIDE [Glucotrol] 10 mg PO BID Discharge Medication List Baclofen 10 mg PO TID PRN 11/07/22 [History] Insulin Glargine [Lantus Vial] 20 unit SQ DAILY 11/07/22 [History] Acetaminophen Tab [Tylenol] 650 mg PO Q6HR PRN tab 11/10/22 [Rx] INSULIN ASPART (NovoLOG) [NovoLOG (formulary)] 0 unit SQ ACHS each 11/10/22 [Rx] Lactulose [Cephulac] 20 gm PO DAILY PRN ml 11/10/22 [Rx] cefUROXime axetiL [Ceftin] 500 mg PO BID #6 tab 11/10/22 [Rx] metFORMIN HCL [Glucophage] 500 mg PO TID #1 tablet 11/10/22 [Rx] Follow up Appointment(s)/Referral(s): Delmy Morris MD [Primary Care Provider] - 1-2 days
== END 2022-11-10 14:58 | disposition home or self-care (01) ==
LOC: EDSEX → EC 18:25 → INTOOBSV 21:21 → 4SSUR 21:21 → 3SCARD 21:47 → UNDODISIN 11-10 14:58
PROVIDERS: ADMIT Hospitalist; ATTEND Hospitalist
DX: E11.10 Type 2 diabetes mellitus with ketoacidosis without coma (principal); N30.90 Cystitis, unspecified without hematuria; E11.65 Type 2 diabetes mellitus with hyperglycemia; E86.0 Dehydration; M62.82 Rhabdomyolysis; I67.2 Cerebral atherosclerosis; E66.9 Obesity, unspecified; Z79.4 Long term (current) use of insulin; Z79.84 Long term (current) use of oral hypoglycemic drugs; Z68.37 Body mass index [BMI] 37.0-37.9, adult; Z20.822 Contact with and (suspected) exposure to COVID-19
CPT/HCPCS: 96361 ×3; 96366 ×2; 96365 ×2; 99291; 36415; 94760; 93005; 97535; 97166; 83880; 80053 ×2; 80048; 82550 ×2; 82009; 83605; 83690; 83735; 84484; 85025 ×2; 85610; 85730; 81001; 83036; 87635; 72170; 71045; 70450; G0378 ×4; J0696 ×4

== ENCOUNTER 2023-03-11 09:30 | Emergency (ER) | payer MEDICARE ==
[2023-03-11 09:46] VITALS: RESP 18; TEMP 99
[2023-03-11] MEDS ORDERED: MORPHINE SULFATE 4 MG/ML SYRINGE IVP STA (11:12)
--- NOTE | 2023-03-11 11:17 | ED ---
Fall HPI - General Chief Complaint: Fall Stated Complaint: Fall Time Seen by Provider: 03/11/23 10:19 Source: EMS Mode of arrival: EMS - History of Present Illness Initial Comments: 77-year-old female with past medical history significant for diabetes presenting to the ED with a chief complaint of fall. Per patient and family, fell this morning. Per patient, does not entirely recall the events leading to the fall. However, denies lightheadedness, shortness of breath, chest pain, or shortness of breath prior to the fall. Rates that she may have lost her balance causing her to fall. Patient states that she believes she fell backwards onto her butt. States that she does not think that she hit her head. She now notes pain of the buttocks, neck, and of the left knee/upper leg. Currently denies any other complaints. No chest pain or shortness of breath. Denies saddle anesthesia or incontinence. No nausea or vomiting diarrhea or urinary changes. - Related Data Home Medications Medication Instructions Recorded Confirmed Semaglutide [Ozempic] 0.25 mg SQ DIRECTED 03/11/23 03/11/23 Simvastatin [Zocor] 20 mg PO DAILY 03/11/23 03/11/23 lisinopriL [Zestril] 10 mg PO DAILY 03/11/23 03/11/23 Previous Rx's Medication Instructions Recorded metFORMIN HCL [Glucophage] 500 mg PO TID #1 tablet 11/10/22 Cephalexin [Keflex] 500 mg PO Q6HR 7 Days #28 cap 03/11/23 Allergies Allergy/AdvReac Type Severity Reaction Status Date / Time No Known Allergies Allergy Verified 03/11/23 13:22 Review of Systems ROS Statement: Those systems with pertinent positive or pertinent negative responses have been documented in the HPI. ROS Other: All systems not noted in ROS Statement are negative. Past Medical History Past Medical History: Diabetes Mellitus History of Any Multi-Drug Resistant Organisms: MRSA Date of last positivie culture/infection: 01/26/23 MDRO Source:: Right Heel Past Surgical History: No Surgical Hx Reported Past Psychological History: No Psychological Hx Reported Smoking Status: Never smoker Past Alcohol Use History: None Reported Past Drug Use History: None Reported General Exam Limitations: no limitations, physical limitation (Has difficulties moving on the stretcher) General appearance: alert Head exam: Present: atraumatic, normocephalic (No mccord signs or raccoons eyes.) Eye exam: Present: normal appearance, PERRL ENT exam: Present: mucous membranes moist Neck exam: Present: other (Wearing cervical collar) Respiratory exam: Present: normal lung sounds bilaterally Cardiovascular Exam: Present: regular rate, normal rhythm GI/Abdominal exam: Present: soft (No tenderness to palpation. No rebound guarding or rigidity.) Extremities exam: Present: other (Strength and Sensation equal and intact of bilateral upper and lower extremities. Patient has pain to palpation of the left upper leg however no step-off, crepitus, or obvious deformities. No shortening or rotation.) Back exam: Present: normal inspection Neurological exam: Present: alert, oriented X3 Skin exam: Present: warm, dry Course Vital Signs 03/11/23 03/11/23 03/11/23 09:33 11:29 16:33 Temperature 99.0 F Pulse Rate 102 H 99 92 Respiratory 18 18 18 Rate Blood Pressure 185/89 171/68 171/83 O2 Sat by Pulse 98 96 Oximetry Medical Decision Making - Medical Decision Making Was pt. sent in by a medical professional or institution (, PA, LAMP REPLACER, urgent care, hospital, or custodial...) When possible be specific @ -No Did you speak to anyone other than the patient for history (EMS, parent, family, police, friend...)? What history was obtained from this source @ -No Did you review nursing and triage notes (agree or disagree)? Why? @ -I reviewed and agree with nursing and triage notes Were old charts reviewed (outside hosp., previous admission, EMS record, old EK G, old radiological studies, urgent care reports/EKG's, custodial records)? Report findings @ -No old charts were reviewed Differential Diagnosis (chest pain, altered mental status, abdominal pain women, abdominal pain men, vaginal bleeding, weakness, fever, dyspnea, syncope, headache, dizziness, GI bleed, back pain, seizure, CVA, palpatations, mental health, musculoskeletal)? @ -Differential Musculoskeletal Muscular strain, contusion, ligament sprain, fracture, arthritis, septic arthritis, bursitis, cellulitis, muscle spasm, nerve compression, DVT, arterial occlusion, herpes zoster, electrolyte abnormality, tumor.... This is not meant to be in all inclusive list EKG interpreted by me (3pts min.). @ -As above X-rays interpreted by me (1pt min.). @ -X-rays of the chest, lumbar spine, knee, femur show no acute process. Head/cervical CT shows no acute process. X-ray of sacrum and coccyx unable to rule out fracture. CT interpreted by me (1pt min.). @ -CT of the sacrum showed possible hairline fracture. U/S interpreted by me (1pt. min.). @ -None done What testing was considered but not performed or refused? (CT, X-rays, U/S, labs)? Why? @ -None What meds were considered but not given or refused? Why? @ -None Did you discuss the management of the patient with other professionals (professionals i.e. , PA, LAMP REPLACER, lab, RT, psych nurse, oncology social worker, licensed practical nurse clinic nurse, teacher, project control officer, piano case and bench assembler)? Give summary @ -No Was smoking cessation discussed for >3mins.? @ -No Was critical care preformed (if so, how long)? @ -No Were there social determinants of health that impacted care today? How? (Homelessness, low income, unemployed, alcoholism, drug addiction, transportation, low edu. Level, literacy, decrease access to med. care, prison, rehab)? @ -No Was there de-escalation of care discussed even if they declined (Discuss DNR or withdrawal of care, Hospice)? DNR status @ -No What co-morbidities impacted this encounter? (DM, HTN, Smoking, COPD, CAD, Cancer, CVA, ARF, Chemo, Hep., AIDS, mental health diagnosis, sleep apnea, morbid obesity)? @ -None Was patient admitted / discharged? Hospital course, mention meds given and route, prescriptions, significant lab abnormalities, going to OR and other pertinent info. @ -Discharge Imaging studies only remarkable for questionable hairline fracture of the sacrum. Laboratory studies did show hypomagnesemia at 0.9, evidence of a UTI as well, otherwise laboratory studies unremarkable. Patient had magnesium repleted in the ED. Provided prescription for antibiotics. Patient discharged home in stable condition. Discussed return precautions with patient and family who verbalizes agreement. Undiagnosed new problem with uncertain prognosis? @ -No Drug Therapy requiring intensive monitoring for toxicity (Heparin, Nitro, Insulin, Cardizem)? @ -No Were any procedures done? @ -No Diagnosis/symptom? @ -Mechanical fall, UTI Acute, or Chronic, or Acute on Chronic? @ -Acute Uncomplicated (without systemic symptoms) or Complicated (systemic symptoms)? @ -Uncomplicated Side effects of treatment? @ -No Exacerbation, Progression, or Severe Exacerbation? @ -No Poses a threat to life or bodily function? How? (Chest pain, [place], [place], pneumonia, PE, COPD, DKA, ARF, appy, cholecystitis, CVA, Diverticulitis, Homicidal, Suicidal, threat to staff... and all critical care pts) @ -No - Lab Data Result diagrams: 03/11/23 11:03 03/11/23 11:03 Lab Results 03/11/23 03/11/23 03/11/23 Range/Units 11:03 11:03 11:03 WBC 14.6 H (3.8-10.6) k/uL RBC 4.55 (3.80-5.40) m/uL Hgb 14.0 (11.4-16.0) gm/dL Hct 43.5 (34.0-46.0) % MCV 95.6 (80.0-100.0) fL MCH 30.8 (25.0-35.0) pg MCHC 32.2 (31.0-37.0) g/dL RDW 13.8 (11.5-15.5) % Plt Count 245 (150-450) k/uL MPV 8.4 Neutrophils % 84 % Lymphocytes % 8 % Monocytes % 6 % Eosinophils % 1 % Basophils % 0 % Neutrophils # 12.3 H (1.3-7.7) k/uL Lymphocytes # 1.1 (1.0-4.8) k/uL Monocytes # 0.8 (0-1.0) k/uL Eosinophils # 0.2 (0-0.7) k/uL Basophils # 0.0 (0-0.2) k/uL PT (9.0-12.0) sec INR (<1.2) APTT (22.0-30.0) sec Sodium 139 (137-145) mmol/L Potassium 3.8 (3.5-5.1) mmol/L Chloride 105 (98-107) mmol/L Carbon Dioxide 26 (22-30) mmol/L Anion Gap 8 mmol/L BUN 10 (7-17) mg/dL Creatinine 0.95 (0.52-1.04) mg/dL Est GFR (CKD-EPI)AfAm 68 (>60 ml/min/1.73 sqM) Est GFR (CKD-EPI)NonAf 59 (>60 ml/min/1.73 sqM) Glucose 212 H (74-99) mg/dL Calcium 8.8 (8.4-10.2) mg/dL Phosphorus 2.9 (2.5-4.5) mg/dL Magnesium 0.9 L* (1.6-2.3) mg/dL Total Bilirubin 1.0 (0.2-1.3) mg/dL AST 30 (14-36) U/L ALT 15 (4-34) U/L Alkaline Phosphatase 69 (38-126) U/L Total Protein 7.4 (6.3-8.2) g/dL Albumin 3.7 (3.5-5.0) g/dL Amylase 50 (30-110) U/L Lipase 84 (23-300) U/L Urine Color Light Yellow Urine Appearance Cloudy H (Clear) Urine pH 5.5 (5.0-8.0) Ur Specific [place] 1.015 (1.001-1.035) Urine Protein Trace H (Negative) Urine Glucose (UA) 2+ H (Negative) Urine Ketones 1+ H (Negative) Urine Blood Trace H (Negative) Urine Nitrite Positive H (Negative) Urine Bilirubin Negative (Negative) Urine Urobilinogen <2.0 (<2.0) mg/dL Ur Leukocyte Esterase Small H (Negative) Urine RBC 2 (0-5) /hpf Urine WBC 19 H (0-5) /hpf Ur Squamous Epith Cells 8 H (0-4) /hpf Urine Bacteria Rare H (None) /hpf Urine Mucus Rare H (None) /hpf 03/11/23 Range/Units 12:55 WBC (3.8-10.6) k/uL RBC (3.80-5.40) m/uL Hgb (11.4-16.0) gm/dL Hct (34.0-46.0) % MCV (80.0-100.0) fL MCH (25.0-35.0) pg MCHC (31.0-37.0) g/dL RDW (11.5-15.5) % Plt Count (150-450) k/uL MPV Neutrophils % % Lymphocytes % % Monocytes % % Eosinophils % % Basophils % % Neutrophils # (1.3-7.7) k/uL Lymphocytes # (1.0-4.8) k/uL Monocytes # (0-1.0) k/uL Eosinophils # (0-0.7) k/uL Basophils # (0-0.2) k/uL PT 10.8 (9.0-12.0) sec INR 1.0 (<1.2) APTT 19.0 L (22.0-30.0) sec Sodium (137-145) mmol/L Potassium (3.5-5.1) mmol/L Chloride (98-107) mmol/L Carbon Dioxide (22-30) mmol/L Anion Gap mmol/L BUN (7-17) mg/dL Creatinine (0.52-1.04) mg/dL Est GFR (CKD-EPI)AfAm (>60 ml/min/1.73 sqM) Est GFR (CKD-EPI)NonAf (>60 ml/min/1.73 sqM) Glucose (74-99) mg/dL Calcium (8.4-10.2) mg/dL Phosphorus (2.5-4.5) mg/dL Magnesium (1.6-2.3) mg/dL Total Bilirubin (0.2-1.3) mg/dL AST (14-36) U/L ALT (4-34) U/L Alkaline Phosphatase (38-126) U/L Total Protein (6.3-8.2) g/dL Albumin (3.5-5.0) g/dL Amylase (30-110) U/L Lipase (23-300) U/L Urine Color Urine Appearance (Clear) Urine pH (5.0-8.0) Ur Specific [place] (1.001-1.035) Urine Protein (Negative) Urine Glucose (UA) (Negative) Urine Ketones (Negative) Urine Blood (Negative) Urine Nitrite (Negative) Urine Bilirubin (Negative) Urine Urobilinogen (<2.0) mg/dL Ur Leukocyte Esterase (Negative) Urine RBC (0-5) /hpf Urine WBC (0-5) /hpf Ur Squamous Epith Cells (0-4) /hpf Urine Bacteria (None) /hpf Urine Mucus (None) /hpf - EKG Data EKG Comments: EKG shows a sinus rhythm with frequent PVCs and a rate of [address] or T-wave changes. NE 131, QRS 90, QT/QTc 375/430. Disposition Clinical Impression: Fall, UTI (urinary tract infection) Disposition: HOME SELF-CARE Condition: Good Instructions (If sedation given, give patient instructions): Fall Prevention for Older Adults (ED), Urinary Tract Infection in Women (ED) Additional Instructions: Please return to the Emergency Department if symptoms worsen or any other concerns. Please follow-up with PCP. Prescriptions: Cephalexin [Keflex] 500 mg PO Q6HR 7 Days #28 cap Is patient prescribed a controlled substance at d/c from ED?: No Referrals: Delmy Morris MD [Primary Care Provider] - 1-2 days Time of Disposition: 17:29
[2023-03-11 11:19] LABS: Basophils % (A) 0 %; Eosinophils # (A) 0.2 k/uL (0-0.7); Eosinophils % (A) 1 %; HCT 43.5 % (34.0-46.0); Lymphocytes # (A) 1.1 k/uL (1.0-4.8); Lymphocytes % (A) 8 %; MCH 30.8 pg (25.0-35.0); MCHC 32.2 g/dL (31.0-37.0); MCV 95.6 fL (80.0-100.0); Mean Platelet Volume 8.4; Monocytes # (A) 0.8 k/uL (0-1.0); Monocytes % (A) 6 %; Neutrophils # (A) 12.3 k/uL (1.3-7.7); Neutrophils % (A) 84 %; Platelet Count 245 k/uL (150-450); RBC 4.55 m/uL (3.80-5.40); RDW 13.8 % (11.5-15.5); WBC 14.6 k/uL (3.8-10.6)
[2023-03-11 11:34] LABS: ALT 15 U/L (4-34); African American GFR (CKD) 68 (>60 ml/min/1.73 sqM); Albumin 3.7 g/dL (3.5-5.0); Amylase 50 U/L (30-110); Anion Gap 8 mmol/L; Blood Urea Nitrogen 10 mg/dL (7-17); Calcium 8.8 mg/dL (8.4-10.2); Carbon Dioxide 26 mmol/L (22-30); Chloride 105 mmol/L (98-107); Glucose 212 mg/dL (74-99); Lipase 84 U/L (23-300); Non-African American GFR(CKD) 59 (>60 ml/min/1.73 sqM); Phosphorus 2.9 mg/dL (2.5-4.5); Sodium 139 mmol/L (137-145); Total Protein 7.4 g/dL (6.3-8.2)
[2023-03-11 11:43] LABS: AST 30 U/L (14-36); Alkaline Phosphatase 69 U/L (38-126); Magnesium 0.9 mg/dL (1.6-2.3); Potassium 3.8 mmol/L (3.5-5.1)
[2023-03-11 13:13] LABS: Prothrombin Time 10.8 sec (9.0-12.0)
--- NOTE | 2023-03-11 13:44 | CT ---
EXAMINATION TYPE: CT brain cspine wo con DATE OF EXAM: 03/11/2023 COMPARISON: Available. HISTORY: Fall, unknown LOC. Pt difficulty staying still during imaging. CT DLP: 1945.6 mGycm Automated exposure control for dose reduction was used. TECHNIQUE: CT scan of the head and cervical spine are performed without contrast. Please note that mo tion limits evaluation. FINDINGS: There is no acute intracranial hemorrhage, mass effect, or midline shift identified. The ventricles and sulci are within normal limits in size. The globes are intact and the visualized sin uses are clear. Cervical spine is visualized in its entirety from C1 through upper thoracic levels and demonstrates s atisfactory alignment without evidence of acute fracture or dislocation. Prevertebral soft tissue ap pears within normal limits. The C1-C2 articulation is unremarkable. Moderate degenerative disc spac e narrowing seen at C4-5 and C5-6. The vertebral body heights and disc spaces are otherwise maintaine d. IMPRESSION: 1. There is no acute fracture or dislocation evident in the cervical spine. Degenerative changes note d above. 2. No acute intracranial hemorrhage, mass effect, or midline shift is seen.
[2023-03-11] MEDS ORDERED: MAGNESIUM SULFATE-D5W PMX 1 GM in DEXTROSE/WATER 1 100ML.BAG IVPB ONE ×2 (14:17→15:15)
--- NOTE | 2023-03-11 15:06 | XR ---
EXAMINATION TYPE: XR femur LT DATE OF EXAM: 03/11/2023 COMPARISON: NONE HISTORY: Status post fall with pain TECHNIQUE: 4 views FINDINGS: Diffuse osteopenia with vascular calcifications. There is arthropathy of the knee joint. Th ere is arthropathy of the patellofemoral joint. Small spur involving greater trochanter compatible wi trochanteric bursitis. IMPRESSION: 1. No acute fracture 2. Arthropathy with diffuse osteopenia.
--- NOTE | 2023-03-11 15:07 | XR ---
EXAMINATION TYPE: XR knee complete LT DATE OF EXAM: 03/11/2023 COMPARISON: NONE HISTORY: Pain TECHNIQUE: Three views are submitted. FINDINGS: Mild narrowing patellofemoral joint and medial compartment of the knee joint. Osseous structures are intact. No acute fracture seen. Diffuse osteopenia. Vascular calcifications noted. IMPRESSION: 1. No acute fracture or dislocation.
--- NOTE | 2023-03-11 15:08 | XR ---
EXAM TYPE: LUMBAR SPINE X RAY SERIES COMPARISON: NONE HISTORY: Pain TECHNIQUE: 2 views are submitted. FINDINGS: Severe degenerative disc disease L4-L5 with grade 1 anterior listhesis. Multilevel facet arthropathy. Mild degenerative disc disease L3-4 and severe changes at L1-2. Vascular calcifications noted. IMPRESSION: 1. Severe degenerative disc disease L-1-2 and L4-L5 with grade 1 anterolisthesis L4-5. Severe facet a rthropathy at multiple levels.
--- NOTE | 2023-03-11 15:10 | XR ---
EXAMINATION TYPE: XR chest 2V DATE OF EXAM: 03/11/2023 COMPARISON: 11/07/2022 TECHNIQUE: PA and lateral views submitted. HISTORY: Pain FINDINGS: The lungs are clear and there is no pneumothorax, pleural effusion, or focal pneumonia. Heart size normal and no overt failure. Osseous structures demonstrate hypertrophic and degenerative changes of the spine. Diffuse osteopenia. There is mitral annular calcification. Limited inspiration. Mild promi nence of the right hilum similar to prior exam possibly related to the ascending aorta. IMPRESSION: 1. No acute process. Mild prominence of the right hilum could be followed with a short-term CT chest. Similar to the prior exam possibly related to the ascending aorta. Other etiologies not excluded.
--- NOTE | 2023-03-11 15:14 | XR ---
EXAMINATION TYPE: XR pelvis AP view DATE OF EXAM: 03/11/2023 COMPARISON: 11/07/2022 HISTORY: Pain The osseous structures are intact and the joint spaces are preserved. No acute fracture is seen. Vi sualized bowel gas pattern is nonspecific. Vascular calcifications. Degenerative change lower lumbar spine. IMPRESSION: 1. No acute fracture.
--- NOTE | 2023-03-11 15:16 | XR ---
EXAMINATION TYPE: XR sacrum coccyx DATE OF EXAM: 03/11/2023 COMPARISON: NONE HISTORY: Pain Three views are submitted. Exam is markedly limited particularly the lateral view which is nondiagnos tic. There is facet arthropathy and severe degenerative disc disease lower lumbar spine with grade 1 anterolisthesis L4 and L5. Vascular calcifications noted. 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 Grossly the SI joints are patent. Sacral foramina margins are intact. There is a questionab le cortical step-off involving the sacrum on the lateral view. Recommend CT scan of the pelvis. IMPRESSION: 1. Recommend CT scan of the sacrum to assess the anterior sacral margin on the lateral view.
[2023-03-11] MEDS ORDERED: ONDANSETRON 4 MG/2 ML VIAL IVP STA (15:25)
[2023-03-11 15:36] LABS: Appearance,Urine Cloudy (Clear); Bacteria,Urine Rare /hpf; Bilirubin,Urine Negative (Negative); Blood,Urine Trace (Negative); Color,Urine Light Yellow; Glucose,Urine (UA) 2+ (Negative); Ketones,Urine 1+ (Negative); Leukocyte Esterase,Urine Small (Negative); Mucus,Urine Rare /hpf; Nitrite,Urine Positive (Negative); PH, Urine 5.5 (5.0-8.0); Protein,Urine Trace (Negative); RBC,Urine 2 /hpf (0-5); Specific Gravity,Urine 1.015 (1.001-1.035); Squamous Epithelial Cell,Urine 8 /hpf (0-4); Urobilinogen,Urine <2.0 mg/dL (<2.0); WBC,Urine 19 /hpf (0-5)
--- NOTE | 2023-03-11 16:47 | CT ---
EXAMINATION TYPE: CT sacrum wo con CT DLP: 428.5 mGycm, Automated exposure control for dose reduction was used. DATE OF EXAM: 03/11/2023 3:55 PM COMPARISON: Radiograph same day . CLINICAL INDICATION:Female, 77 years old with history of R/O SACRAL FX; PHH, fall TECHNIQUE: Multiple axial images were obtained from the midportion of T11 through the sacroiliac heidy nts. Soft tissue and bone windows in coronal and sagittal planes were obtained and reviewed. Contrast used: mL none. Oral contrast used: none. FINDINGS: Suspected hairline fracture through the anterior superior sacrum on lateral view series 204 image 39. The remainder of the visualized osseous structures demonstrate no definitive evidence for fracture. T he sacrum appears intact. Grade 1 anterolisthesis of L4 and L5. Atherosclerosis of the arterial left 2. IMPRESSION: Suspect hairline fracture to the anterior margin of the sacrum near the L5-S1 disc space. This can be confirmed with MRI.
[2023-03-11 18:48] VITALS: BP 153/89; PULSE 97
== END 2023-03-11 18:48 | disposition home or self-care (01) ==
LOC: EC 09:30
DX: N39.0 Urinary tract infection, site not specified (principal); E11.9 Type 2 diabetes mellitus without complications; Z79.899 Other long term (current) drug therapy; W18.30XA Fall on same level, unspecified, initial encounter
CPT/HCPCS: 36415; 80053; 82150; 83690; 83735; 84100; 85025; 85610; 85730; 81001; 72100; 72170; 72220; 73552; 73562; 71046; 72125; 70450; 72192; 99285; 96365; 96366 ×2; 96375 ×2; J2270; J2405; J3475; 93005

== ENCOUNTER 2023-03-20 09:51 | Inpatient (IN) | payer MEDICARE ==
[2023-03-20] MEDS ORDERED: SODIUM CHLORIDE 0.9% 500 ML 500 ML IV STA (10:02)
--- NOTE | 2023-03-20 10:11 | ED ---
General Adult HPI - General Chief complaint: Neuro Symptoms/Deficit Stated complaint: AMS Time Seen by Provider: 03/20/23 10:00 Source: EMS, RN notes reviewed, old records reviewed Mode of arrival: EMS Limitations: altered mental status - History of Present Illness Initial comments: 77-year-old female with altered level consciousness, abnormal speech. Patient was last seen well at 3 AM by her she was awake at that time but according to paramedics she was not conversant with her . She woke at 9 AM with garbled speech, expressive aphasia. She is unable to answer any questions to contribute to history. By review the medical record she is not on any anti-coagulant. Our best time course at this time is that she was well upon going to sleep and possibly again well at 3 AM. She presents at 10:00 AM. - Related Data Home Medications Medication Instructions Recorded Confirmed Semaglutide [Ozempic] 0.25 mg SQ DIRECTED 03/11/23 03/11/23 Simvastatin [Zocor] 20 mg PO DAILY 03/11/23 03/11/23 lisinopriL [Zestril] 10 mg PO DAILY 03/11/23 03/11/23 Previous Rx's Medication Instructions Recorded metFORMIN HCL [Glucophage] 500 mg PO TID #1 tablet 11/10/22 Cephalexin [Keflex] 500 mg PO Q6HR 7 Days #28 cap 03/11/23 Allergies Allergy/AdvReac Type Severity Reaction Status Date / Time No Known Allergies Allergy Verified 03/11/23 13:22 Review of Systems ROS Statement: Those systems with pertinent positive or pertinent negative responses have been documented in the HPI. ROS Other: All systems not noted in ROS Statement are negative. Past Medical History Past Medical History: Diabetes Mellitus History of Any Multi-Drug Resistant Organisms: MRSA Date of last positivie culture/infection: 01/26/23 MDRO Source:: Right Heel Past Surgical History: No Surgical Hx Reported Past Psychological History: No Psychological Hx Reported Smoking Status: Never smoker Past Alcohol Use History: None Reported Past Drug Use History: None Reported General Exam Limitations: altered mental status General appearance: alert, in no apparent distress Head exam: Present: atraumatic, normocephalic Eye exam: Present: normal appearance, PERRL Neck exam: Present: normal inspection. Absent: tenderness, meningismus Respiratory exam: Present: normal lung sounds bilaterally. Absent: respiratory distress, wheezes Cardiovascular Exam: Present: normal rhythm, tachycardia GI/Abdominal exam: Present: soft. Absent: distended, tenderness, guarding Extremities exam: Present: normal inspection, normal capillary refill. Absent: pedal edema Neurological exam: Present: alert, motor sensory deficit (Complete expressive aphasia, patient has weakness in the bilateral extremities but this does not appear to be focal. She is unable to clearly answer any questions.). Absent: oriented X3, CN II-XII intact Course Vital Signs 03/20/23 03/20/23 03/20/23 09:52 10:38 11:00 Temperature 98.2 F Pulse Rate 113 H 106 H 113 H Respiratory 18 18 18 Rate Blood Pressure 137/80 147/127 131/41 O2 Sat by Pulse 98 99 90 L Oximetry 03/20/23 11:30 Temperature Pulse Rate 114 H Respiratory 18 Rate Blood Pressure 149/74 O2 Sat by Pulse 97 Oximetry - Reevaluation(s) Reevaluation #1: 03/20/23 10:03 Stroke activation Reevaluation #2: 03/20/[address] Jeronimo, recommending medical management at this point. No in tervention Medical Decision Making - Medical Decision Making Was pt. sent in by a medical professional or institution (, PA, MANAGER OF MEDICAL, urgent care, hospital, or assisted...) When possible be specific @ -[No] Did you speak to anyone other than the patient for history (EMS, parent, family, police, friend...)? What history was obtained from this source @ -[Patient's , paramedics Did you review nursing and triage notes (agree or disagree)? Why? @ -[I reviewed and agree with nursing and triage notes] Were old charts reviewed (outside hosp., previous admission, EMS record, old EKG, old radiological studies, urgent care reports/EKG's, assisted records)? Report findings @ -[No old charts were reviewed] Differential Diagnosis (chest pain, altered mental status, abdominal pain women, abdominal pain men, vaginal bleeding, weakness, fever, dyspnea, syncope, he adache, dizziness, GI bleed, back pain, seizure, CVA, palpatations, mental health, musculoskeletal)? @ -Differential CVA Ischemic stroke, hemorrhagic stroke, brain tumor, atypical migraine, Wernicke's encephalopathy, seizure, multiple sclerosis, meningitis, encephalitis, hypogly cemia, Guillain-Juárez, electrolytes disturbance, myasthenia gravis.... This is not meant to be an all-inclusive list EKG interpreted by me (3pts min.). @ -[Sinus tachycardia rate of 114, [place] interval 146, QRS duration 86, QTC 414, no ST segment elevation. X-rays interpreted by me (1pt min.). @ -[None done] CT interpreted by me (1pt min.). @ CT brain negative for intracranial hemorrhage. U/S interpreted by me (1pt. min.). @ -[None done] What testing was considered but not performed or refused? (CT, X-rays, U/S, labs)? Why? @ -[None] What meds were considered but not given or refused? Why? @ -[None] Did you discuss the management of the patient with other professionals (professionals i.e. , PA, MANAGER OF MEDICAL, lab, RT, psych nurse, social work lecturer, networking specialist, t eacher, sheriff's officer, hospice case manager)? Give summary @ -Dr. Ibarra and Dr. Jeronimo Was smoking cessation discussed for >3mins.? @ -[No] Was critical care preformed (if so, how long)? @ -[yes 35 min Were there social determinants of health that impacted care today? How? (Homelessness, low income, unemployed, alcoholism, drug addiction, transportation, low edu. Level, literacy, decrease access to med. care, [facility], rehab)? @ -[No] Was there de-escalation of care discussed even if they declined (Discuss DNR or withdrawal of care, Hospice)? DNR status @ -[No] What co-morbidities impacted this encounter? (DM, HTN, Smoking, COPD, CAD, Cancer, CVA, ARF, Chemo, Hep., AIDS, mental health diagnosis, sleep apnea, mo rbid obesity)? @ -[Diabetes Was patient admitted / discharged? Hospital course, mention meds given and route, prescriptions, significant lab abnormalities, going to OR and other pertinent info. @ -77-year-old female presenting with expressive aphasia. Patient does not have any focal neurological findings. She has global weakness and a difficult time complying with exam but does not appear to be unilateral. Head CT was negative for intracranial hemorrhage or mass effect. I did confirm the onset timing with the and he believes that she may have had some speech abnormalities around 1 AM. Patient was not a TPA candidate secondary to onset as well as wake up stroke. Dr. Jeronimo covering for stroke intervention was able to review her images and recommends medical management at this time. Undiagnosed new problem with uncertain prognosis? @ -[No] Drug Therapy requiring intensive monitoring for toxicity (Heparin, Nitro, Insulin, Cardizem)? @ -[No] Were any procedures done? @ -[No] Diagnosis/symptom? @ -[Acute CVA, expressive aphasia Acute, or Chronic, or Acute on Chronic? @ -Acute Uncomplicated (without systemic symptoms) or Complicated (systemic symptoms)? @ -[complicated Side effects of treatment? @ -[No] Exacerbation, Progression, or Severe Exacerbation? @ -[No] Poses a threat to life or bodily function? How? (Chest pain, USA, PA, pneumonia, PE, COPD, DKA, ARF, appy, cholecystitis, CVA, Diverticulitis, Homicidal, Suicidal, threat to staff... and all critical care pts) @ -[Yes, CVA - Lab Data Result diagrams: 03/20/23 11:58 03/20/23 10:43 Lab Results 03/20/23 03/20/23 03/20/23 Range/Units 10:43 10:43 10:43 WBC (3.8-10.6) k/uL RBC (3.80-5.40) m/uL Hgb (11.4-16.0) gm/dL Hct (34.0-46.0) % MCV (80.0-100.0) fL MCH (25.0-35.0) pg MCHC (31.0-37.0) g/dL RDW (11.5-15.5) % Plt Count (150-450) k/uL MPV Neutrophils % % Lymphocytes % % Monocytes % % Eosinophils % % Basophils % % Neutrophils # (1.3-7.7) k/uL Lymphocytes # (1.0-4.8) k/uL Monocytes # (0-1.0) k/uL Eosinophils # (0-0.7) k/uL Basophils # (0-0.2) k/uL Sodium 136 L (137-145) mmol/L Potassium 3.8 (3.5-5.1) mmol/L Chloride 100 (98-107) mmol/L Carbon Dioxide 25 (22-30) mmol/L Anion Gap 11 mmol/L BUN 11 (7-17) mg/dL Creatinine 1.25 H (0.52-1.04) mg/dL Est GFR (CKD-EPI)AfAm 48 (>60 ml/min/1.73 sqM) Est GFR (CKD-EPI)NonAf 42 (>60 ml/min/1.73 sqM) Glucose 317 H (74-99) mg/dL Calcium 8.3 L (8.4-10.2) mg/dL Total Bilirubin 0.9 (0.2-1.3) mg/dL AST 24 (14-36) U/L ALT 12 (4-34) U/L Alkaline Phosphatase 62 (38-126) U/L Creatine Kinase 52 (30-135) U/L Troponin I <0.012 (0.000-0.034) ng/mL Total Protein 6.0 L (6.3-8.2) g/dL Albumin 2.9 L (3.5-5.0) g/dL Urine Color Light Yellow Urine Appearance Clear (Clear) Urine pH 5.5 (5.0-8.0) Ur Specific [place] 1.048 H (1.001-1.035) Urine Protein 1+ H (Negative) Urine Glucose (UA) 3+ H (Negative) Urine Ketones 1+ H (Negative) Urine Blood Negative (Negative) Urine Nitrite Negative (Negative) Urine Bilirubin Negative (Negative) Urine Urobilinogen <2.0 (<2.0) mg/dL Ur Leukocyte Esterase Negative (Negative) Urine RBC 3 (0-5) /hpf Urine WBC 4 (0-5) /hpf Granular Casts 1 (0) /lpf Urine Mucus Rare H (None) /hpf Urine Opiates Screen Not Detected (NotDetected) Ur Oxycodone Screen Not Detected (NotDetected) Urine Methadone Screen Not Detected (NotDetected) Ur Propoxyphene Screen Not Detected (NotDetected) Ur Barbiturates Screen Not Detected (NotDetected) U Tricyclic Antidepress Not Detected (NotDetected) Ur Phencyclidine Scrn Not Detected (NotDetected) Ur Amphetamines Screen Not Detected (NotDetected) U Methamphetamines Scrn Not Detected (NotDetected) U Benzodiazepines Scrn Not Detected (NotDetected) Urine Cocaine Screen Not Detected (NotDetected) U Marijuana (THC) Screen Not Detected (NotDetected) 03/20/23 Range/Units 11:58 WBC 13.7 H (3.8-10.6) k/uL RBC 5.46 H (3.80-5.40) m/uL Hgb 16.7 H (11.4-16.0) gm/dL Hct 51.9 H (34.0-46.0) % MCV 95.1 (80.0-100.0) fL MCH 30.7 (25.0-35.0) pg MCHC 32.3 (31.0-37.0) g/dL RDW 13.6 (11.5-15.5) % Plt Count 296 (150-450) k/uL MPV 9.3 Neutrophils % 88 % Lymphocytes % 5 % Monocytes % 5 % Eosinophils % 1 % Basophils % 0 % Neutrophils # 12.0 H (1.3-7.7) k/uL Lymphocytes # 0.7 L (1.0-4.8) k/uL Monocytes # 0.7 (0-1.0) k/uL Eosinophils # 0.1 (0-0.7) k/uL Basophils # 0.0 (0-0.2) k/uL Sodium (137-145) mmol/L Potassium (3.5-5.1) mmol/L Chloride (98-107) mmol/L Carbon Dioxide (22-30) mmol/L Anion Gap mmol/L BUN (7-17) mg/dL Creatinine (0.52-1.04) mg/dL Est GFR (CKD-EPI)AfAm (>60 ml/min/1.73 sqM) Est GFR (CKD-EPI)NonAf (>60 ml/min/1.73 sqM) Glucose (74-99) mg/dL Calcium (8.4-10.2) mg/dL Total Bilirubin (0.2-1.3) mg/dL AST (14-36) U/L ALT (4-34) U/L Alkaline Phosphatase (38-126) U/L Creatine Kinase (30-135) U/L Troponin I (0.000-0.034) ng/mL Total Protein (6.3-8.2) g/dL Albumin (3.5-5.0) g/dL Urine Color Urine Appearance (Clear) Urine pH (5.0-8.0) Ur Specific [place] (1.001-1.035) Urine Protein (Negative) Urine Glucose (UA) (Negative) Urine Ketones (Negative) Urine Blood (Negative) Urine Nitrite (Negative) Urine Bilirubin (Negative) Urine Urobilinogen (<2.0) mg/dL Ur Leukocyte Esterase (Negative) Urine RBC (0-5) /hpf Urine WBC (0-5) /hpf Granular Casts (0) /lpf Urine Mucus (None) /hpf Urine Opiates Screen (NotDetected) Ur Oxycodone Screen (NotDetected) Urine Methadone Screen (NotDetected) Ur Propoxyphene Screen (NotDetected) Ur Barbiturates Screen (NotDetected) U Tricyclic Antidepress (NotDetected) Ur Phencyclidine Scrn (NotDetected) Ur Amphetamines Screen (NotDetected) U Methamphetamines Scrn (NotDetected) U Benzodiazepines Scrn (NotDetected) Urine Cocaine Screen (NotDetected) U Marijuana (THC) Screen (NotDetected) Critical Care Time Critical Care Time: Yes Total Critical Care Time: 35 Disposition Clinical Impression: Cerebrovascular accident (CVA) Disposition: ADMITTED IP TO THIS [facility] Condition: Serious Is patient prescribed a controlled substance at d/c from ED?: No Referrals: Delmy Morris MD [Primary Care Provider] - 1-2 days Time of Disposition: 12:48
--- NOTE | 2023-03-20 10:42 | CT ---
EXAMINATION TYPE: CT brain wo con DATE OF EXAM: 03/20/2023 COMPARISON: 11/07/2022 HISTORY: Confusion CT DLP: 1095.6 mGycm Automated exposure control for dose reduction was used. FINDINGS: The ventricles, basal cisterns and sulci over convexities are moderately enlarged consistent with mod erate atrophy but appropriate for the patient's age. There is moderate decreased density in the periventricular white matter consistent with chronic ische jhoana white matter demyelination. There is no mass effect or shift of midline structures. There is no acute intra or extra-axial hemorrhage. IMPRESSION: 1. Age-appropriate atrophy. 2. No acute bleed or mass effect. 3. No significant interval change. The posterior fossa including the brainstem, fourth ventricle and cerebellar pontine angles appear gr ossly normal. The intraorbital contents appear normal and symmetric. Paranasal sinuses and mastoid air cells are we ll aerated. The calvarium and overlying soft tissues are normal. IMPRESSION:
--- NOTE | 2023-03-20 10:58 | XR ---
EXAMINATION TYPE: XR chest 2V DATE OF EXAM: 03/20/2023 COMPARISON: 03/11/2023 HISTORY: Altered mental status TECHNIQUE: Frontal and lateral views of the chest are obtained. FINDINGS: There is no focal air space opacity, pleural effusion, or pneumothorax seen. The cardiac silhouette size is within normal limits. The osseous structures are intact. IMPRESSION: No acute cardiopulmonary process.
--- NOTE | 2023-03-20 11:14 | CT ---
EXAMINATION TYPE: CT angio head neck DATE OF EXAM: 03/20/2023 HISTORY: dosen'e follow commands, confussion, prior in pacs COMPARISON: None CT DLP: 720.2 mGycm. Automated Exposure Control for Dose Reduction was Utilized. TECHNIQUE: CTA scan of the head and neck is performed with IV Contrast, patient injected with 65 mL of Isovue 370, axial images are obtained, coronal and sagittal reformatted images are reviewed. 3D re constructed images are created on an independent workstation and reviewed. FINDINGS: Evaluation of the carotid arteries within the neck is extremely limited secondary to involuntary yo ent motion. The brachiocephalic origins are widely patent. There is no common carotid artery stenosis within the neck. Evaluation the carotid bifurcations is limited as described above. Severe stenosis of the proximal ri ght internal carotid artery is strongly suspected but cannot be determined with certainty given the l imitations of the exam. The proximal left internal carotid artery appears patent with mild stenosis s econdary to mild calcified plaque. Intracranially, there is no segmental occlusion, sizable aneurysm sac or vascular malformation. IMPRESSION: 1. Markedly limited evaluation of the internal carotid arteries within the neck secondary to involunt cory patient motion. 2. Severe stenosis of the proximal right internal carotid artery cannot be determined with certainty but is strongly suspected. 3. Probable mild stenosis of the proximal left internal carotid artery. 4. No significant abnormality of the intracranial arterial circulation.
[2023-03-20 11:20] LABS: ALT 12 U/L (4-34); AST 24 U/L (14-36); African American GFR (CKD) 48 (>60 ml/min/1.73 sqM); Albumin 2.9 g/dL (3.5-5.0); Alkaline Phosphatase 62 U/L (38-126); Anion Gap 11 mmol/L; Blood Urea Nitrogen 11 mg/dL (7-17); Calcium 8.3 mg/dL (8.4-10.2); Carbon Dioxide 25 mmol/L (22-30); Chloride 100 mmol/L (98-107); Creatine Kinase 52 U/L (30-135); Glucose 317 mg/dL (74-99); Non-African American GFR(CKD) 42 (>60 ml/min/1.73 sqM); Potassium 3.8 mmol/L (3.5-5.1); Sodium 136 mmol/L (137-145); Total Bilirubin 0.9 mg/dL (0.2-1.3)
[2023-03-20] MEDS ORDERED: ASPIRIN 325 MG TAB PO STA (11:20)
[2023-03-20 11:55] LABS: Appearance,Urine Clear (Clear); Bilirubin,Urine Negative (Negative); Blood,Urine Negative (Negative); Color,Urine Light Yellow; Glucose,Urine (UA) 3+ (Negative); Granular Casts,Urine 1 /lpf (0); Ketones,Urine 1+ (Negative); Leukocyte Esterase,Urine Negative (Negative); Mucus,Urine Rare /hpf; Nitrite,Urine Negative (Negative); PH, Urine 5.5 (5.0-8.0); Protein,Urine 1+ (Negative); RBC,Urine 3 /hpf (0-5); Urobilinogen,Urine <2.0 mg/dL (<2.0); WBC,Urine 4 /hpf (0-5)
[2023-03-20 11:57] LABS: Specific Gravity,Urine 1.048 (1.001-1.035)
[2023-03-20 12:04] LABS: Amphetamine Screen,Urine Not Detected (NotDetected); Barbiturate Screen,Urine Not Detected (NotDetected); Benzodiazepines Screen,Urine Not Detected (NotDetected); Cocaine Screen,Urine Not Detected (NotDetected); Methadone Screen, Urine Not Detected (NotDetected); Opiate Screen,Urine Not Detected (NotDetected); Oxycodone Screen, Urine Not Detected (NotDetected); Phencyclidine Screen,Urine Not Detected (NotDetected); Tricyclic Antidepressant,Urine Not Detected (NotDetected); Urn Cannabinoid Scrn Not Detected (NotDetected)
[2023-03-20 12:40] LABS: Basophils % (A) 0 %; Eosinophils # (A) 0.1 k/uL (0-0.7); Eosinophils % (A) 1 %; HCT 51.9 % (34.0-46.0); HGB 16.7 gm/dL (11.4-16.0); Lymphocytes # (A) 0.7 k/uL (1.0-4.8); Lymphocytes % (A) 5 %; MCH 30.7 pg (25.0-35.0); MCHC 32.3 g/dL (31.0-37.0); MCV 95.1 fL (80.0-100.0); Mean Platelet Volume 9.3; Monocytes # (A) 0.7 k/uL (0-1.0); Monocytes % (A) 5 %; Neutrophils % (A) 88 %; Platelet Count 296 k/uL (150-450); RBC 5.46 m/uL (3.80-5.40); RDW 13.6 % (11.5-15.5); WBC 13.7 k/uL (3.8-10.6)
[2023-03-20] MEDS ORDERED: DEXTROSE 50% SYRINGE 50 ML IVP PRN ×2 (14:06)
[2023-03-20] MEDS ORDERED: ONDANSETRON 4 MG/2 ML VIAL IVP PRN (14:09)
[2023-03-20] MEDS ORDERED: BACLOFEN 10 MG TAB PO PRN (14:21)
[2023-03-20] MEDS: SODIUM CHLORIDE 0.9% 1,000 ML IV SCH (14:31)
[2023-03-20 14:51] LABS: Glucose,Whole Blood 272 mg/dL (70-110)
[2023-03-20] MEDS: INSULIN ASPART (NovoLOG) 100 UNIT/ML VIAL SQ SCH ×3 (14:54→21:10)
[2023-03-20] MEDS: lisinopriL 10 MG TAB PO SCH (14:54)
[2023-03-20] MEDS: ENOXAPARIN 40 MG/0.4 ML SYRINGE SQ SCH (14:54)
[2023-03-20] MEDS ORDERED: CLOPIDOGREL 75 MG TAB PO STA (17:48)
--- NOTE | 2023-03-20 17:53 | P.CNNES ---
History of Present Illness Consult date: 03/20/23 Requesting physician: Sarwat Pichardo Reason for Consult: acute cva, expressive aphasia History of Present Illness: This is a 77-year-old woman with history of diabetes who presented emergency department because of the speech difficulty as well as confusion. History is obtained from medical record. Per the ED the dishes note seems the patient's last normal was that 3 AM today and she was awake but according to the not conversing with her . Then at 9 AM it seems that her speech was garbled and was having difficulty getting her words out. It does not appear that she is on any anticoagulant. Percent are facility around 10 AM on 03/20/2023. Then later in the ED physician spoke with the again is seems the her speech abnormality was around 1 AM. Does not. The patient is on any antiplatelet. Upon talk to the patient patient was unable to provide any history since her speech was garbled. Some of the workup during our hospital visit consisted of: CT of the head was negative for intracranial hemorrhage or mass effect. CT angiography of the head and neck is reported as markedly limited the evaluation of the internal carotid artery within the neck secondary due to involuntary patient motion. Severe stenosis of the proximal right internal carotid artery cannot be determined with certainty but strongly suspected. Probable mild stenosis of the proximal left ICA stenosis. No significant abnormality of the intracranial arterial circulation Stroke pager was activated. ED team spoke with the stroke attending No IV TPA since onset the window is seems her speech abnormality around 1 AM today which is that she is at outside the window for an half hours and the risk of IV TPA and risks outweigh the benefit. Dr. Jeronimo (stroke) attending recommended medical management per ED team. Review of Systems Review of system is limited but positive and negative aspiration as per HPI. Past Medical History Past Medical History: Diabetes Mellitus History of Any Multi-Drug Resistant Organisms: MRSA Date of last positivie culture/infection: 01/26/23 MDRO Source:: Right Heel Past Surgical History: No Surgical Hx Reported Past Psychological History: No Psychological Hx Reported Smoking Status: Never smoker Past Alcohol Use History: None Reported Past Drug Use History: None Reported Medications and Allergies Home Medications Medication Instructions Recorded Confirmed Type metFORMIN HCL [Glucophage] 500 mg PO TID #1 tablet 11/10/22 03/20/23 Rx Semaglutide [Ozempic] 0.25 mg SQ DIRECTED 03/11/23 03/20/23 History Simvastatin [Zocor] 20 mg PO DAILY 03/11/23 03/20/23 History lisinopriL [Zestril] 10 mg PO DAILY 03/11/23 03/20/23 History Baclofen 10 mg PO DAILY PRN 03/20/23 03/20/23 History Allergies Allergy/AdvReac Type Severity Reaction Status Date / Time No Known Allergies Allergy Verified 03/20/23 12:51 Physical Examination - Vital Signs Vital Signs: Vital Signs Temp Pulse Resp BP Pulse Ox 03/20/23 14:04 124 H 18 165/97 98 03/20/23 11:30 114 H 18 149/74 97 03/20/23 11:00 113 H 18 131/41 90 L 03/20/23 10:38 106 H 18 147/127 99 03/20/23 09:52 98.2 F 113 H 18 137/80 98 Intake and Output 03/20/23 03/20/23 03/20/23 06:59 14:59 22:59 Output Total 150 Balance -150 Output: Urine 150 Uretheral (Hagen) 150 Other: Weight 97.522 kg GENERAL: The patient is lying in bed and is not in acute distress. HENT: Supple neck. NEUROLOGICAL: Limited because of her significant aphasia. She is awake, alert. Has significant aphasia and appears predominantly expressive aphasia. She'll say okay. Able to follow a few simple commands such as showing a thumbs up as sticking her tongue out and smiling. Unable to identify objects as is pin watch glasses No facial weakness. No dysarthria from the limited language. Motor the strength is very hard to assess individual muscle strength but briefly lifted upper extremities above gravity as well as lower extremities and again it was hard to appreciate any focality but seems that she was able to raise him equally above gravity. Sensory, cerebellar was hard to assess because of her condition Reflexes was deferred because of cooperation. Plantars are downgoing bilaterally Results - Laboratory Findings CBC and BMP: 03/20/23 11:58 03/20/23 10:43 Abnormal Lab Findings: Abnormal Labs 03/20/23 03/20/23 03/20/23 10:43 10:43 11:58 WBC 13.7 H RBC 5.46 H Hgb 16.7 H Hct 51.9 H Neutrophils # 12.0 H Lymphocytes # 0.7 L APTT Sodium 136 L Creatinine 1.25 H Glucose 317 H POC Glucose (mg/dL) Calcium 8.3 L Total Protein 6.0 L Albumin 2.9 L Ur Specific [place] 1.048 H Urine Protein 1+ H Urine Glucose (UA) 3+ H Urine Ketones 1+ H Urine Mucus Rare H 03/20/23 03/20/23 14:23 14:50 WBC RBC Hgb Hct Neutrophils # Lymphocytes # APTT 21.0 L Sodium Creatinine Glucose POC Glucose (mg/dL) 272 H Calcium Total Protein Albumin Ur Specific [place] Urine Protein Urine Glucose (UA) Urine Ketones Urine Mucus Assessment and Plan Assessment: This is a 77-year-old woman with history of diabetes who presented emergency department on 03/20/2023 around 10 AM and it appears the patient the had the speech difficulty that started around 1:00 in the morning on 03/20/2023 per the ED team that he was notified the by her . Was felt that she had pred ominately expressive aphasia. Aphasia and predominately expressive: Juan Manuel due to acute ischemic stroke. Severe stenosis of the proximal right ICA could not be excluded on that CT angiography but is limited because of motion artifact Diabetes mellitus Plan: I ordered MRI of the brain with and without, carotid duplex. 2-D echo, lipid panel is ordered and is pending The patient was given aspirin 325 once in the ED and then was started on aspirin 325mg daily. In addition I started the patient on Plavix 75 mg daily with loading dose of 300mg once. Prior to this it does not seem she was on antiplatlelets. She start on Lipitor 80 mg daily at bedtime for secondary stro ke prophylaxis Vascular surgery team is consulted for the suspected right ICA stenosis but there is limitation to the test but I ordered carotid duplex. I ordered TSH and hemoglobin A 1C Continue Neuro checks Cardiac monitoring PT, OT and [employer] are consulted Recommend permissive hypertension for 48 hours from now. Treat systolic blood pressure of more than 220 and diastolic if more than 110 Ordered routine EEG to rule out any underlying seizure discharges which I feel her confusion seems due to aphasia. EEG will be completed this Wednesday. Defer the rest of the medical management to primary team For DVT prophylaxis on Lovenox. Thank you for the consultation Time with Patient: Greater than 30
--- NOTE | 2023-03-20 18:19 | P.HPIM ---
History of Present Illness H&P Date: 03/20/23 Chief Complaint: Neurologic changes This is a pleasant 77-year-old patient, follows Dr. Delmy Morris. baseline is somewhat unsteady in walking. Does not use a cane or walker. went into the bathroom and found the patient sitting on the toilet rocking back and forth. Speech was covered. Called a neighbor. Left side was found weakened. Patient is cautious but did not respond to questions. EMS noted aphasia. In the ER patient is able to answer questions and then becomes a bit confused. She seems to be neglecting the right side. at the bedside. No trouble swallowing. No change in vision. Slight headache. Review of systems: GEN.: Tired, EYES: Right-sided neglect HEENT: None NECK: None RESPIRATORY: None CARDIOVASCULAR: None GASTROINTESTINAL: None GENITOURINARY: Urinary incontinence, MUSCULOSKELETAL: Joint pains LYMPHATICS: None HEMATOLOGICAL: None PSYCHIATRY: Confused intermittently NEUROLOGICAL: As above Past medical history to include: Diabetes, arthritis, Baseline gait dysfunction Social history: Does not smoke or drink alcohol. . Physical examination: VITAL SIGNS: 98.2, 113, 18, 137/80, 98% room air GENERAL: BMI 35.8, propped up in bed, leaning on the right side. EYES: Pupils equal. Conjunctiva normal. HEENT: External appearance of nose and ears normal, oral cavity grossly normal. NECK: JVD not raised; masses not palpable. HEART: First and second heart sounds are normal; no edema. LUNGS: Respiratory rate normal; clear to auscultation. ABDOMEN: Soft, nontender, liver spleen not palpable, no masses palpable. PSYCH: Patient is able to answer questions. Intermittently confused. MUSCULOSKELETAL:No Clubbing/cyanosis;muscles-grossly intact. OA NEUROLOGICAL: Cranial nerves grossly intact; no facial asymmetry, power and sensation grossly intact. Speech intermittently confused. Right-sided neglect. Left-sided decreased power 3-4/5 INVESTIGATIONS, reviewed in the clinical context: White count 13.7 hemoglobin 16.7 platelets 296 sodium 136 potassium 3.8 BUN 11 creatinine 1.25 glucose 317 Urine drug screen: Negative EKG tracing personally reviewed by me-sinus tachycardia. Nonspecific T-wave changes. Chest x-ray film personally reviewed by me-no obvious abnormality CT angiogram of the head and neck: Severe stenosis proximal right internal carotid artery. Strongly suspected. CT brain: Age appropriate atrophy Assessment and plan: -Acute ischemic stroke suspected in the right MCA territory. Patient also some right-sided neglect. Intermittent dysarthria. Aspirin. Plavix. Lipitor. Neuro checks. Neurology consulted. MRI brain. Carotid Doppler. EEG. 2-D echo. -Acute dysarthria, intermittent/fluctuating from stroke Speech therapy consult -Proximal right internal carotid artery severe stenosis suspected. Monitor Technician vascular. Carotid Doppler -Diabetes mellitus type 2, uncontrolled with hyperglycemia metformin 5 mg before meals 3 times a day -Obesity BMI 37.8 Weight loss measures -Baseline gait dysfunction possibly precipitating fall. PTOT. -Full code Care was discussed with the at the bedside. Questions answered. Past Medical History Past Medical History: Diabetes Mellitus History of Any Multi-Drug Resistant Organisms: MRSA Date of last positivie culture/infection: 01/26/23 MDRO Source:: Right Heel Past Surgical History: No Surgical Hx Reported Past Psychological History: No Psychological Hx Reported Smoking Status: Never smoker Past Alcohol Use History: None Reported Past Drug Use History: None Reported Medications and Allergies Home Medications Medication Instructions Recorded Confirmed Type metFORMIN HCL [Glucophage] 500 mg PO TID #1 tablet 11/10/22 03/20/23 Rx Semaglutide [Ozempic] 0.25 mg SQ DIRECTED 03/11/23 03/20/23 History Simvastatin [Zocor] 20 mg PO DAILY 03/11/23 03/20/23 History lisinopriL [Zestril] 10 mg PO DAILY 03/11/23 03/20/23 History Baclofen 10 mg PO DAILY PRN 03/20/23 03/20/23 History Allergies Allergy/AdvReac Type Severity Reaction Status Date / Time No Known Allergies Allergy Verified 03/20/23 12:51 Physical Exam Vitals: Vital Signs Temp Pulse Resp BP Pulse Ox 03/20/23 14:04 124 H 18 165/97 98 03/20/23 11:30 114 H 18 149/74 97 03/20/23 11:00 113 H 18 131/41 90 L 03/20/23 10:38 106 H 18 147/127 99 03/20/23 09:52 98.2 F 113 H 18 137/80 98 Intake and Output 03/19/23 03/20/23 03/20/23 22:59 06:59 14:59 Output Total 150 Balance -150 Output: Urine 150 Uretheral (Hagen) 150 Other: Weight 97.522 kg Results CBC & Chem 7: 03/20/23 11:58 03/20/23 10:43 Labs: Abnormal Lab Results - Last 24 Hours (Table) 03/20/23 03/20/23 03/20/23 Range/Units 10:43 10:43 11:58 WBC 13.7 H (3.8-10.6) k/uL RBC 5.46 H (3.80-5.40) m/uL Hgb 16.7 H (11.4-16.0) gm/dL Hct 51.9 H (34.0-46.0) % Neutrophils # 12.0 H (1.3-7.7) k/uL Lymphocytes # 0.7 L (1.0-4.8) k/uL Sodium 136 L (137-145) mmol/L Creatinine 1.25 H (0.52-1.04) mg/dL Glucose 317 H (74-99) mg/dL Calcium 8.3 L (8.4-10.2) mg/dL Total Protein 6.0 L (6.3-8.2) g/dL Albumin 2.9 L (3.5-5.0) g/dL Ur Specific [place] 1.048 H (1.001-1.035) Urine Protein 1+ H (Negative) Urine Glucose (UA) 3+ H (Negative) Urine Ketones 1+ H (Negative) Urine Mucus Rare H (None) /hpf
--- NOTE | 2023-03-20 18:59 | US ---
EXAMINATION TYPE: US carotid duplex BILAT DATE OF EXAM: 03/20/2023 COMPARISON: Same day CTA CLINICAL INDICATION: Female, 77 years old with history of stroke. ?right ICA stenosis on CTA; Stroke TECHNIQUE: Carotid duplex ultrasound examination. Indirect Doppler criteria was utilized. FINDINGS: EXAM MEASUREMENTS: RIGHT: Peak Systolic Velocity (PSV) cm/sec ----- Right CCA: 83.2 ----- Right ICA: 118 ----- Right ECA: 124 ICA/CCA ratio: 1.4 RIGHT: End Diastole cm/sec ----- Right CCA: 14.3 ----- Right ICA: 10.4 ----- Right ECA: 10.0 LEFT: Peak Systolic Velocity (PSV) cm/sec ----- Left CCA: 85.0 ----- Left ICA: 133 ----- Left ECA: 150 ICA/CCA ratio: 1.6 LEFT: End Diastole cm/sec ----- Left CCA: 14.7 ----- Left ICA: 23.8 ----- Left ECA: 0.0 VERTEBRALS (direction of flow): Right Vertebral: Antegrade Left Vertebral: Unable to visualize Rhythm: Arrhythmia BASKET FILLER NOTES: Pt constantly moving during exam- difficult to scan IMPRESSION: 1. No evidence of significant hemodynamic stenosis. 2. Cardiac arrhythmia. 3. Atherosclerotic plaque. Criteria for Assigning % of Stenosis / Diameter reduction (Estimation based on the indirect measurements of the internal carotid artery velocities (ICA PSV). 1. Normal (no stenosis)=ICA PSV < 125 cm/s: ratio < 2.0: ICA EDV<40 cm/s. 2. Less than 50% stenosis=ICA PSV < 125 cm/s: ratio < 2.0: ICA EDV<40 cm/s. 3. 50 to 69% stenosis=ICA PSV of 125 to 230 cm/s: ration 2.0 ? 4.0: ICA EDV 40-100 cm/s. 4. Greater than 70% stenosis to near occlusion= ICA PSV > 230 cm/s: ratio > 4.0: ICA EDV > 100 cm/s. 5. Near occlusion= ICA PSV velocities may be low or undetectable: variable ratio and ICA EDV. 6. Total occlusion=unable to detect flow.
[2023-03-20 19:03] LABS: Glucose,Whole Blood 188 mg/dL (70-110)
[2023-03-20 21:11] LABS: Glucose,Whole Blood 114 mg/dL (70-110)
[2023-03-20] MEDS: ATORVASTATIN 80 MG TAB PO SCH (21:31)
[2023-03-21] MEDS: SODIUM CHLORIDE 0.9% 1,000 ML IV SCH ×2 (02:50→19:48)
[2023-03-21] MEDS: INSULIN ASPART (NovoLOG) 100 UNIT/ML VIAL SQ SCH ×4 (06:29→20:45)
[2023-03-21 06:30] LABS: Glucose,Whole Blood 126 mg/dL (70-110)
[2023-03-21] MEDS: ASPIRIN 325 MG TAB PO SCH (09:47)
[2023-03-21] MEDS: CLOPIDOGREL 75 MG TAB PO SCH (09:48)
[2023-03-21] MEDS: ENOXAPARIN 40 MG/0.4 ML SYRINGE SQ SCH (09:48)
[2023-03-21] MEDS: lisinopriL 10 MG TAB PO SCH (09:48)
[2023-03-21 11:42] LABS: Glucose,Whole Blood 291 mg/dL (70-110)
--- NOTE | 2023-03-21 11:50 | P.PN ---
Subjective Progress Note Date: 03/21/23 I am following-up with patient and she feels she is doing better. Her speech has drastically improved. She stated at home she remembers falling. Denies of any focal deficits. Objective - Vital Signs Vital signs: Vital Signs Temp 98.4 F 03/21/23 09:45 Pulse 107 H 03/21/23 09:45 Resp 16 03/21/23 09:45 BP 110/73 03/21/23 09:45 Pulse Ox 97 03/21/23 09:45 FiO2 Intake & Output 03/20/23 03/21/23 03/21/23 18:59 06:59 18:59 Intake Total 458 Output Total 150 150 Balance -150 -150 458 Weight 97.522 kg 97.522 kg Intake: Oral 458 Output: Urine 150 150 Uretheral (Hagen) 150 Other: Voiding Method Incontinent External Catheter # Voids 3 # Bowel Movements 1 - Exam GENERAL: The patient is lying in bed and is not in acute distress. NEUROLOGICAL: Higher mental function: The patient is awake, alert, oriented to self, place and time. Patient is following simple commands. No aphasia and no neglect. Cranial nerves: The pupils are round, equal and reactive to light. Visual buchanan are full to confrontation throughout. Extraocular movement is intact no nystagmus is noted. Facial sensation is normal to touch throughout. The facial strength is normal throughout. Tongue is midline and moved [id number] without any difficulty. No dysarthria is noted. Shoulder shrug is normal bilaterally. Motor: The strength is 5 over 5 throughout. Normal tone and bulk. Cerebellum: Normal finger to nose bilaterally. Sensation: Sensation is normal to touch throughout. Some of the workup during our hospital visit consisted of: TSH: 2.290 CT of the head was negative for intracranial hemorrhage or mass effect. CT angiography of the head and neck is reported as markedly limited the evalu ation of the internal carotid artery within the neck secondary due to involuntary patient motion. Severe stenosis of the proximal right internal carotid artery cannot be determined with certainty but strongly suspected. Probable mild stenosis of the proximal left ICA stenosis. No significant abno rmality of the intracranial arterial circulation Carotid duplex was reported as no evidence of significant hemodynamic stenosis. Cardiac arrhythmia. Atheroscloeritc plaque. - Labs CBC & Chem 7: 03/20/23 11:58 09/30/23 10:43 Labs: Abnormal Lab Results - Last 24 Hours (Table) 03/20/23 03/20/23 03/20/23 Range/Units 10:43 11:58 14:23 WBC 13.7 H (3.8-10.6) k/uL RBC 5.46 H (3.80-5.40) m/uL Hgb 16.7 H (11.4-16.0) gm/dL Hct 51.9 H (34.0-46.0) % Neutrophils # 12.0 H (1.3-7.7) k/uL Lymphocytes # 0.7 L (1.0-4.8) k/uL APTT 21.0 L (22.0-30.0) sec POC Glucose (mg/dL) (70-110) mg/dL Ur Specific [place] 1.048 H (1.001-1.035) Urine Protein 1+ H (Negative) Urine Glucose (UA) 3+ H (Negative) Urine Ketones 1+ H (Negative) Urine Mucus Rare H (None) /hpf 03/20/23 03/20/23 03/20/23 Range/Units 14:50 19:01 21:09 WBC (3.8-10.6) k/uL RBC (3.80-5.40) m/uL Hgb (11.4-16.0) gm/dL Hct (34.0-46.0) % Neutrophils # (1.3-7.7) k/uL Lymphocytes # (1.0-4.8) k/uL APTT (22.0-30.0) sec POC Glucose (mg/dL) 272 H 188 H 114 H (70-110) mg/dL Ur Specific [place] (1.001-1.035) Urine Protein (Negative) Urine Glucose (UA) (Negative) Urine Ketones (Negative) Urine Mucus (None) /hpf 03/21/23 03/21/23 Range/Units 06:28 11:41 WBC (3.8-10.6) k/uL RBC (3.80-5.40) m/uL Hgb (11.4-16.0) gm/dL Hct (34.0-46.0) % Neutrophils # (1.3-7.7) k/uL Lymphocytes # (1.0-4.8) k/uL APTT (22.0-30.0) sec POC Glucose (mg/dL) 126 H 291 H (70-110) mg/dL Ur Specific [place] (1.001-1.035) Urine Protein (Negative) Urine Glucose (UA) (Negative) Urine Ketones (Negative) Urine Mucus (None) /hpf Assessment and Plan Assessment: This is a 77-year-old woman with history of diabetes who presented emergency department on 03/20/2023 around 10 AM and it appears the patient the had the speech difficulty that started around 1:00 in the morning on 03/20/2023 per the ED team that he was notified the by her . Was felt that she had predom inately expressive aphasia. Aphasia and predominately expressive which has resolved today---appears likely TIA. Severe stenosis of the proximal right ICA could not be excluded on that CT angiography but is limited because of motion artifact but on carotid duplex no significant stenosis. Diabetes mellitus Plan: MRI of the brain with and without, 2-D echo, lipid panel, HbA1c are pending. The patient was given aspirin 325 once in the ED and then was started on aspirin 325mg daily. In addition I started the patient on Plavix 75 mg daily with loading dose of 300mg once yesterday. Prior to this it does not seem she was on antiplatlelets. She was staredt on Lipitor 80 mg daily at bedtime for secondary stroke prophylaxis Vascular surgery team is consulted for the suspected right ICA stenosis but there is limitation to the test on CTA but on carotid no significant stenosis. Continue Neuro checks Cardiac monitoring PT, OT and BOTTOM MAN are consulted Recommend permissive hypertension for 24 hours from now. Treat systolic blood pressure of more than 220 and diastolic if more than 110 Ordered routine EEG to rule out any underlying seizure or discharges because of episode of confusion. EEG will be completed likely tomorrow. Defer the rest of the medical management to primary team For DVT prophylaxis on Lovenox. The plan is discussed with patient. Dr. Caicedo will start neurology service tomorrow A.M. Time with Patient: Less than 30
--- NOTE | 2023-03-21 13:17 | CA ---
Transthoracic Echo Report Name: Elzbieta Toribio Age: 77 Gender: F : 1945 Exam Date: 03/20/2023 15:35 Exam Location: [facility] Ht (in): 65 Wt (lb): 215 Ordering Physician: Sarwat Pichardo MD Attending/Referring Phys: [id number], [employer] System Engineer Vesna Driver RDCS Procedure CPT: Indications: Thrombus Cardiac Hx: Technical Quality: Fair Contrast 1: Total Dose (mL): Contrast 2: Total Dose (mL): MEASUREMENTS (Male / Female) Normal Values 2D ECHO LV Diastolic Diameter PLAX 4.0 cm 4.2 - 5.9 / 3.9 - 5.3 cm LV Systolic Diameter PLAX 2.7 cm IVS Diastolic Thickness 1.3 cm 0.6 - 1.0 / 0.6 - 0.9 cm LVPW Diastolic Thickness 1.2 cm 0.6 - 1.0 / 0.6 - 0.9 cm LV Relative Wall Thickness 0.6 RV Internal Dim ED PLAX 2.6 cm LA Volume 55.0 cm??? 18 - 58 / 22 - 52 cm??? M-MODE Aortic Root Diameter MM 3.0 cm LA Systolic Diameter MM 4.1 cm LA Ao Ratio MM 1.4 AV Cusp Separation MM 1.1 cm DOPPLER AV Peak Velocity 191.9 cm/s AV Peak Gradient 14.7 mmHg AV Mean Velocity 137.6 cm/s AV Mean Gradient 8.1 mmHg AV Velocity Time Integral 30.4 cm LVOT Peak Velocity 98.5 cm/s LVOT Peak Gradient 3.9 mmHg LVOT Velocity Time Integral 21.3 cm MV Area PHT 3.3 cm??? Mitral E Point Velocity 92.5 cm/s Mitral A Point Velocity 187.2 cm/s Mitral E to A Ratio 0.5 MV Deceleration Time 230.9 ms MV E' Velocity 6.0 cm/s Mitral E to MV E' Ratio 15.3 TR Peak Velocity 231.9 cm/s TR Peak Gradient 21.5 mmHg Right Ventricular Systolic Press 26.5 mmHg FINDINGS Left Ventricle Mildly increased left ventricular wall thickness. Left ventricular cavity size normal. Normal left ventricular systolic function with no obvious regional wall motion abnormalities. Left ventricular ejection fraction is estimated at 55 %. Right Ventricle Normal right ventricular size and function. Right ventricular systolic pressure within normal limits. Right Atrium Normal right atrial size. Left Atrium Mildly increased left atrial volume. Mitral Valve Moderate mitral annular calcification. [id number] mitral regurgitation. Aortic Valve No aortic valve stenosis or regurgitation. Tricuspid Valve Structurally normal tricuspid valve. Mild tricuspid regurgitation. Pulmonic Valve Structurally normal pulmonic valve. Trace pulmonic regurgitation. Pericardium No pericardial effusion. Aorta Normal size aortic root and proximal ascending aorta. CONCLUSIONS Normal LV size and systolic function Previewed by: Dr. Doni Franks MD (Electronically Signed) Final Date: 21 March 2023 13:16
[2023-03-21 14:51] LABS: Chol/HDL Ratio 3.61 Ratio; LDL Cholesterol,Calculated 67.4 mg/dL (0.0-131.0)
[2023-03-21 17:02] LABS: Glucose,Whole Blood 156 mg/dL (70-110)
--- NOTE | 2023-03-21 17:18 | P.GSCN ---
History of Present Illness History of present illness: Patient is a 77-year-old female we are asked to see in regards to carotid stenosis. She reportedly had a fall While at home and states that is why she was brought in. There is some confus ion as to the true timing of her incidence but reportedly patient also had issues with aphasia and speech abnormalities. Patient herself does not provide significant history other than that she knew she fell and did not seem to trip over anything that she is aware of. She states she lives at home with her . The majority of the history is gained to be in the chart. Past Medical History Past Medical History: Diabetes Mellitus History of Any Multi-Drug Resistant Organisms: MRSA Year Discovered:: 01/26/23 MDRO Source:: Right Heel Past Surgical History: No Surgical Hx Reported Past Psychological History: No Psychological Hx Reported Smoking Status: Never smoker Past Alcohol Use History: None Reported Past Drug Use History: None Reported Medications and Allergies Home Medications Medication Instructions Recorded Confirmed Type metFORMIN HCL [Glucophage] 500 mg PO TID #1 tablet 11/10/22 03/20/23 Rx Semaglutide [Ozempic] 0.25 mg SQ DIRECTED 03/11/23 03/20/23 History Simvastatin [Zocor] 20 mg PO DAILY 03/11/23 03/20/23 History lisinopriL [Zestril] 10 mg PO DAILY 03/11/23 03/20/23 History Baclofen 10 mg PO DAILY PRN 03/20/23 03/20/23 History Allergies Allergy/AdvReac Type Severity Reaction Status Date / Time No Known Allergies Allergy Verified 03/20/23 12:51 Surgical - Exam Vital Signs Temp Pulse Resp BP Pulse Ox 98.2 F 113 H 18 137/80 98 03/20/23 09:52 03/20/23 09:52 03/20/23 09:52 03/20/23 09:52 03/20/23 09:52 General is a pleasant cooperative female in no acute distress. Heart appears regular in rate and rhythm. Lungs are clear. HEENT is normocephalic atraumatic. Extremities show no clubbing, cyanosis or edema. Cranial nerves II through XII grossly intact Results - Labs 03/20/23 11:58 03/20/23 10:43 Abnormal Lab Results - Last 24 Hours (Table) 03/20/23 03/20/23 03/20/23 Range/Units 11:58 19:01 21:09 POC Glucose (mg/dL) 188 H 114 H (70-110) mg/dL Hemoglobin A1c 9.4 H (<=6.0) % HDL Cholesterol (40.00-60.00) mg/dL 03/21/23 03/21/23 03/21/23 Range/Units 06:28 07:30 11:41 POC Glucose (mg/dL) 126 H 291 H (70-110) mg/dL Hemoglobin A1c (<=6.0) % HDL Cholesterol 36.80 L (40.00-60.00) mg/dL 03/21/23 Range/Units 16:50 POC Glucose (mg/dL) 156 H (70-110) mg/dL Hemoglobin A1c (<=6.0) % HDL Cholesterol (40.00-60.00) mg/dL Diabetes panel 03/20/23 03/21/23 Range/Units 11:58 07:30 Hemoglobin A1c 9.4 H (<=6.0) % Triglycerides 144.00 (0.00-149.00) mg/dL HDL Cholesterol 36.80 L (40.00-60.00) mg/dL Thyroid panel 03/20/23 Range/Units 10:43 TSH 2.290 (0.465-4.680) mIU/L Pituitary panel 03/20/23 Range/Units 10:43 TSH 2.290 (0.465-4.680) mIU/L Assessment and Plan Assessment: Potential TIA Carotid discordance on imaging CT angiogram limited although upon review there is evidence of potential stenosis of the right internal carotid artery Ultrasound without evidence of high-grade stenosis Plan: Await MRI imaging and further labs. Continue dual antiplatelet therapy. Continue statin medication. Will evaluate, it does not appear the patient has any focal weakness nor any left-sided stenosis that is obvious. Potentially if she does have evidence of ischemic changes to the right brain, would consider diagnostic angiography to evaluate the carotid discordance and to evaluate the full level of stenosis. If the MRI does not have any evidence of right-sided ischemia, would defer any further evaluation because at this time no further intervention would be recommended for an asymptomatic carotid stenosis. Continue with outpatient surveillance in that case.
[2023-03-21] MEDS ORDERED: diphenhydrAMINE 50 MG/ML 1 ML VIAL IVP STA (19:04)
--- NOTE | 2023-03-21 19:14 | P.PN ---
Progress Note - Text Progress Note Date: 03/21/23 Chief Complaint: Neurologic changes This is a pleasant 77-year-old patient, follows Dr. Delmy Morris. baseline is somewhat unsteady in walking. Does not use a cane or walker. went into the bathroom and found the patient sitting on the toilet rocking back and forth. Speech was covered. Called a neighbor. Left side was found weakened. Patient is cautious but did not respond to questions. EMS noted aphasia. In the ER patient is able to answer questions and then becomes a bit confused. She seems to be neglecting the right side. at the bedside. No trouble swallowing. No change in vision. Slight headache. March 21: Patient's speech is back to normal. Being followed better. No right-sided neglect. Very slight weakness on the left side., If any. [place] to be TIA. Being followed by neurology. Discussed with the patient and the son at the bedside. Clinically much better. Pending MRI. Seen by vascular. Active Medications Aspirin (Aspirin 325 Mg Tab) 325 mg PO DAILY [facility] Last Admin: 03/21/23 09:47 Dose: 325 mg Atorvastatin Calcium (Atorvastatin 80 Mg Tab) 80 mg PO HS [facility] Last Admin: 03/20/23 21:31 Dose: 80 mg Baclofen (Baclofen 10 Mg Tab) 10 mg PO DAILY PRN PRN Reason: Muscle Spasm Clopidogrel Bisulfate (Clopidogrel 75 Mg Tab) 75 mg PO DAILY [facility] Last Admin: 03/21/23 09:48 Dose: 75 mg Dextrose/Water (Dextrose 50% Syringe 50 Ml) 25 ml IVP PER PROTOCOL PRN; Protocol PRN Reason: Hypoglycemia Dextrose/Water (Dextrose 50% Syringe 50 Ml) 50 ml IVP PER PROTOCOL PRN; Protocol PRN Reason: Hypoglycemia Diphenhydramine HCl (Diphenhydramine 50 Mg/Ml 1 Ml Vial) 25 mg IVP ONCE STA Stop: 03/21/23 19:05 Diphenhydramine HCl (Diphenhydramine 25 Mg Cap) 25 mg PO QID [facility] Enoxaparin Sodium (Enoxaparin 40 Mg/0.4 Ml Syringe) 40 mg SQ DAILY [facility] Last Admin: 03/21/23 09:48 Dose: 40 mg Sodium Chloride (Saline 0.9%) 1,000 mls @ 75 mls/hr IV .[id number] [facility] Last Admin: 03/21/23 02:50 Dose: 75 mls/hr Insulin Aspart (Insulin Aspart (Novolog) 100 Unit/Ml Vial) 0 unit SQ ACHS [facility]; Protocol Last Admin: 03/21/23 17:46 Dose: 2 unit Lisinopril (Lisinopril 10 Mg Tab) 10 mg PO DAILY [facility] Last Admin: 03/21/23 09:48 Dose: 10 mg Ondansetron HCl (Ondansetron 4 Mg/2 Ml Vial) 4 mg IVP Q6HR PRN PRN Reason: Nausea And Vomiting Psyllium Hydrophilic Mucilloid (Psyllium Husk 100% 6 Gm Packet) 6 gm PO BID [facility] Past medical history to include: Diabetes, arthritis, Baseline gait dysfunction Social history: Does not smoke or drink alcohol. . Physical examination: VITAL SIGNS: 98, 117, 18, 98/64, 97% room air GENERAL:, propped up in bed, more awake and conversant EYES: Pupils equal. Conjunctiva normal. HEENT: External appearance of nose and ears normal, oral cavity grossly normal. NECK: JVD not raised; masses not palpable. HEART: First and second heart sounds are normal; no edema. LUNGS: Respiratory rate normal; clear to auscultation. ABDOMEN: Soft, nontender, liver spleen not palpable, no masses palpable. PSYCH: Able to answer questions appropriately.. MUSCULOSKELETAL:No Clubbing/cyanosis;muscles-grossly intact. OA NEUROLOGICAL: Cranial nerves grossly intact; no facial asymmetry, power and sensation grossly intact. Speech intermittently confused. [id number] neglect. Left-sided power 4/5-mild INVESTIGATIONS, reviewed in the clinical context: 2-D echocardiogram: EF 55%. Carotid Doppler: No stenosis LDL 67 White count 13.7 hemoglobin 16.7 platelets 296 sodium 136 potassium 3.8 BUN 11 creatinine 1.25 glucose 317 Urine drug screen: Negative EKG tracing personally reviewed by me-sinus tachycardia. Nonspecific T-wave ch anges. Chest x-ray film personally reviewed by me-no obvious abnormality CT angiogram of the head and neck: Severe stenosis proximal right internal carotid artery. Strongly suspected. CT brain: Age appropriate atrophy Assessment and plan: -Acute left-sided weakness with some right-sided neglect.. Intermittent dysarthria: Nearly resolved.. : Possible TIA Aspirin. Plavix. Lipitor. Neuro checks. Neurology following. MRI brain pending . Carotid Doppler-no stenosis . EEG. 2-D echo-unremarkable. -Acute dysarthria, intermittent/fluctuating : Resolved Speech therapy consult -Proximal right internal carotid artery severe stenosis suspected. With recent right carotid endarterectomy. Vascular following.. Carotid Doppler -Diabetes mellitus type 2, uncontrolled with hyperglycemia metformin 500 mg before meals 3 times a day -Obesity BMI 37.8 Weight loss measures -Baseline gait dysfunction possibly precipitating fall. PTOT. -Full code Doing better. Pending MRI. Following his vascular neurology. Past Medical History Past Medical History: Diabetes Mellitus History of Any Multi-Drug Resistant Organisms: MRSA Date of last positivie culture/infection: 01/26/23 MDRO Source:: Right Heel Past Surgical History: No Surgical Hx Reported Past Psychological History: No Psychological Hx Reported Smoking Status: Never smoker Past Alcohol Use History: None Reported Past Drug Use History: None Reported
[2023-03-21 20:26] LABS: Glucose,Whole Blood 170 mg/dL (70-110)
[2023-03-21] MEDS: diphenhydrAMINE 25 MG CAP PO SCH (20:32)
[2023-03-21] MEDS: PSYLLIUM HUSK 100% 6 GM PACKET PO SCH (20:45)
[2023-03-21] MEDS: ATORVASTATIN 80 MG TAB PO SCH (20:45)
[2023-03-22] MEDS: SODIUM CHLORIDE 0.9% 1,000 ML IV SCH ×2 (01:51→16:42)
[2023-03-22 06:18] LABS: Glucose,Whole Blood 154 mg/dL (70-110)
[2023-03-22] MEDS: INSULIN ASPART (NovoLOG) 100 UNIT/ML VIAL SQ SCH ×4 (06:37→21:22)
[2023-03-22] MEDS: ASPIRIN 325 MG TAB PO SCH (08:44)
[2023-03-22] MEDS: PSYLLIUM HUSK 100% 6 GM PACKET PO SCH ×2 (08:44→21:13)
[2023-03-22] MEDS: ENOXAPARIN 40 MG/0.4 ML SYRINGE SQ SCH (08:44)
[2023-03-22] MEDS: diphenhydrAMINE 25 MG CAP PO SCH ×4 (08:45→21:22)
[2023-03-22] MEDS: CLOPIDOGREL 75 MG TAB PO SCH (08:45)
[2023-03-22] MEDS: lisinopriL 10 MG TAB PO SCH (08:45)
[2023-03-22 11:54] VITALS: BMI 35.7
[2023-03-22 11:56] LABS: Glucose,Whole Blood 237 mg/dL (70-110)
--- NOTE | 2023-03-22 12:16 | P.PN ---
Subjective Progress Note Date: 03/22/23 Patient is seen and examined. Follow-up. Patient currently being worked up for TIA. Patient had presented with weakness and aphasia. Speech is normal today, she denies any weakness or other focal deficits. She is scheduled for MRI of brain today. Charlene's son and are at the bedside. Objective - Vital Signs Vital signs: Vital Signs Temp 97.2 F L 03/22/23 08:00 Pulse 99 03/22/23 08:00 Resp 16 03/22/23 08:00 BP 110/62 03/22/23 08:00 Pulse Ox 95 03/22/23 08:00 FiO2 Intake & Output 03/21/23 03/22/23 03/22/23 18:59 06:59 18:59 Intake Total 576 180 Balance 576 180 Weight 97.522 kg Intake: Oral 576 180 Other: Voiding Method Incontinent Incontinent Incontinent External Catheter External Catheter External Catheter # Bowel Movements 1 - Exam General appearance: The patient is alert, oriented, appears in no acute distress. HET: Head is normocephalic and atraumatic. Pupils are equal and reactive. Neck: Supple. Heart: Regular. Lungs: Equal expansion, normal respiratory effort. Abdomen: Soft, nontender, nondistended. Extremities: Normal skin color and turgor. Neurological: No focal deficits. Alert and oriented 3. - Labs CBC & Chem 7: 03/20/23 11:58 03/20/23 10:43 Labs: Abnormal Lab Results - Last 24 Hours (Table) 03/20/23 03/21/23 03/21/23 Range/Units 11:58 07:30 16:50 POC Glucose (mg/dL) 156 H (70-110) mg/dL Hemoglobin A1c 9.4 H (<=6.0) % HDL Cholesterol 36.80 L (40.00-60.00) mg/dL 03/21/23 03/22/23 03/22/23 Range/Units 20:25 06:16 11:54 POC Glucose (mg/dL) 170 H 154 H 237 H (70-110) mg/dL Hemoglobin A1c (<=6.0) % HDL Cholesterol (40.00-60.00) mg/dL Assessment and Plan Assessment: 1. Potential TIA, symptoms of expressive aphasia, now resolved 2. Carotid discordance on imaging 3. CT angiogram limited although upon review there is evidence of potential stenosis of the right internal carotid artery 4. Ultrasound without evidence of high-grade stenosis Plan: 1. Continue dual antiplatelet therapy 2. Await MRI imaging 3. Continue atorvastatin 4. Further recommendations forthcoming based on clinical course, may need to consider diagnostic angiography evidence of ischemic changes to the right brain seen on MRI. Otherwise would recommend continuing medical management. Thank you for this consultation, we will continue to follow The impression and plan of care has been dictated as directed. Dr. Hall I performed a history and examination of this patient, discussed the same with the dictator. I agree with the dictator's note ,documented as a scribe. Any additional findings or plans will be noted.
--- NOTE | 2023-03-22 14:02 | P.PN ---
Progress Note - Text Progress Note Date: 03/22/23 Chief Complaint: Neurologic changes This is a pleasant 77-year-old patient, follows Dr. Delmy Morris. baseline is somewhat unsteady in walking. Does not use a cane or walker. went into the bathroom and found the patient sitting on the toilet rocking back and forth. Speech was covered. Called a neighbor. Left side was found weakened. Patient is cautious but did not respond to questions. EMS noted aphasia. In the ER patient is able to answer questions and then becomes a bit confused. She seems to be neglecting the right side. at the bedside. No trouble swallowing. No change in vision. Slight headache. March 21: Patient's speech is back to normal. Being followed better. No right-sided neglect. Very slight weakness on the left side., If any. [place] to be TIA. Being followed by neurology. Discussed with the patient and the son at the bedside. Clinically much better. Pending MRI. Seen by vascular. March 22: Doing much better. Fetus a left-sided creatinine improved. No right-sided inattention. and son at the bedside. Pending MRI. Active Medications Aspirin (Aspirin 325 Mg Tab) 325 mg PO DAILY [facility] Last Admin: 03/22/23 08:44 Dose: 325 mg Atorvastatin Calcium (Atorvastatin 80 Mg Tab) 80 mg PO HS [facility] Last Admin: 03/21/23 20:45 Dose: 80 mg Baclofen (Baclofen 10 Mg Tab) 10 mg PO DAILY PRN PRN Reason: Muscle Spasm Clopidogrel Bisulfate (Clopidogrel 75 Mg Tab) 75 mg PO DAILY [facility] Last Admin: 03/22/23 08:45 Dose: 75 mg Dextrose/Water (Dextrose 50% Syringe 50 Ml) 25 ml IVP PER PROTOCOL PRN; Protocol PRN Reason: Hypoglycemia Dextrose/Water (Dextrose 50% Syringe 50 Ml) 50 ml IVP PER PROTOCOL PRN; Protocol PRN Reason: Hypoglycemia Diphenhydramine HCl (Diphenhydramine 25 Mg Cap) 25 mg PO QID [facility] Last Admin: 03/22/23 12:18 Dose: 25 mg Enoxaparin Sodium (Enoxaparin 40 Mg/0.4 Ml Syringe) 40 mg SQ DAILY [facility] Last Admin: 03/22/23 08:44 Dose: 40 mg Sodium Chloride (Saline 0.9%) 1,000 mls @ 75 mls/hr IV .[id number] [facility] Last Admin: 03/22/23 01:51 Dose: Not Given Insulin Aspart (Insulin Aspart (Novolog) 100 Unit/Ml Vial) 0 unit SQ ACHS [facility]; Protocol Last Admin: 03/22/23 12:18 Dose: 6 unit Lisinopril (Lisinopril 10 Mg Tab) 10 mg PO DAILY [facility] Last Admin: 03/22/23 08:45 Dose: 10 mg Ondansetron HCl (Ondansetron 4 Mg/2 Ml Vial) 4 mg IVP Q6HR PRN PRN Reason: Nausea And Vomiting Psyllium Hydrophilic Mucilloid (Psyllium Husk 100% 6 Gm Packet) 6 gm PO BID [facility] Last Admin: 03/22/23 08:44 Dose: 6 gm Past medical history to include: Diabetes, arthritis, Baseline gait dysfunction Social history: Does not smoke or drink alcohol. . Physical examination: VITAL SIGNS: 97.2, 103, 16, 123/65, 99% room air GENERAL:, propped up in bed, awake EYES: Pupils equal. Conjunctiva normal. HEENT: External appearance of nose and ears normal, oral cavity grossly normal. NECK: JVD not raised; masses not palpable. HEART: First and second heart sounds are normal; no edema. LUNGS: Respiratory rate normal; clear to auscultation. ABDOMEN: Soft, nontender, liver spleen not palpable, no masses palpable. PSYCH: Able to answer questions appropriately.. MUSCULOSKELETAL:No Clubbing/cyanosis;muscles-grossly intact. OA NEUROLOGICAL: Cranial nerves grossly intact; no facial asymmetry, power and sensation grossly intact. Speech-normal Tzvujk-Dgwpb-xvmge neglect. Left-sided power 5/5 INVESTIGATIONS, reviewed in the clinical context: 2-D echocardiogram: EF 55%. Carotid Doppler: No stenosis LDL 67 White count 13.7 hemoglobin 16.7 platelets 296 sodium 136 potassium 3.8 BUN 11 creatinine 1.25 glucose 317 Urine drug screen: Negative EKG tracing personally reviewed by me-sinus tachycardia. Nonspecific T-wave changes. Chest x-ray film personally reviewed by me-no obvious abnormality CT angiogram of the head and neck: Severe stenosis proximal right internal carotid artery. Strongly suspected. CT brain: Age appropriate atrophy Assessment and plan: -Acute left-sided weakness with some right-sided neglect.. Intermittent dysarthria: Nearly resolved.. : Possible TIA Aspirin. Plavix. Lipitor. Neuro checks. Neurology following. MRI brain pending . Carotid Doppler-no stenosis . EEG. 2-D echo-unremarkable. -Acute dysarthria, intermittent/fluctuating : Resolved Speech therapy consult -Proximal right internal carotid artery severe stenosis suspected. With recent right carotid endarterectomy. Vascular following.. Carotid Doppler -Diabetes mellitus type 2, uncontrolled with hyperglycemia metformin 500 mg before meals 3 times a day -Obesity BMI 37.8 Weight loss measures -Baseline gait dysfunction possibly precipitating fall. PTOT. -Full code Patient nearly back to baseline. Discussed with the patient and son at the bedside. Pending MRI. Follow-up with neurology Past Medical History Past Medical History: Diabetes Mellitus History of Any Multi-Drug Resistant Organisms: MRSA Date of last positivie culture/infection: 01/26/23 MDRO Source:: Right Heel Past Surgical History: No Surgical Hx Reported Past Psychological History: No Psychological Hx Reported Smoking Status: Never smoker Past Alcohol Use History: None Reported Past Drug Use History: None Reported
--- NOTE | 2023-03-22 15:04 | P.PN ---
Subjective Progress Note Date: 03/22/23 Patient initially seen by Dr. Wander Penn. Please refer to his note for details. Patient is a 77-year-old right-handed female who presented with aphasia and confusion. This has resolved. Patient is undergoing stroke workup. Patient feels she is back to baseline. Some of the workup during our hospital visit consisted of: TSH: 2.290 CT of the head was negative for intracranial hemorrhage or mass effect. CT angiography of the head and neck is reported as markedly limited the evaluation of the internal carotid artery within the neck secondary due to involuntary patient motion. Severe stenosis of the proximal right internal carotid artery cannot be determined with certainty but strongly suspected. Probable mild stenosis of the proximal left ICA stenosis. No significant abnormality of the intracranial arterial circulation Carotid duplex was reported as no evidence of significant hemodynamic stenosis. Cardiac arrhythmia. Atheroscloeritc plaque. Objective - Vital Signs Vital signs: Vital Signs Temp 97.2 F L 03/22/23 08:00 Pulse 103 H 03/22/23 12:00 Resp 16 03/22/23 12:00 BP 123/65 03/22/23 12:00 Pulse Ox 99 03/22/23 12:00 FiO2 Intake & Output 03/21/23 03/22/23 03/22/23 18:59 06:59 18:59 Intake Total 576 180 Balance 576 180 Weight 97.522 kg Intake: Oral 576 180 Other: Voiding Method Incontinent Incontinent Incontinent External Catheter External Catheter External Catheter # Bowel Movements 1 - Exam Patient's mental status, speech and language functions are normal. Patient know s it is March and the year is 2022 and that she is in [facility] in [place]. Speech and language functions are normal. Patient can name and repeat very well. No aphasia or dysarthria. Cranial nerves are normal, pupils are equal, round and reacting, visual buchanan are full with no neglect. Face is symmetric and tongue protrudes to the midline. Muscle strength testing showed no tonic or drift and the strength is normal in arms and legs. No ataxia. Sensations are normal. - Labs CBC & Chem 7: 03/20/23 11:58 03/20/23 10:43 Labs: Abnormal Lab Results - Last 24 Hours (Table) 03/21/23 03/21/23 03/21/23 Range/Units 07:30 16:50 20:25 POC Glucose (mg/dL) 156 H 170 H (70-110) mg/dL HDL Cholesterol 36.80 L (40.00-60.00) mg/dL 03/22/23 03/22/23 Range/Units 06:16 11:54 POC Glucose (mg/dL) 154 H 237 H (70-110) mg/dL HDL Cholesterol (40.00-60.00) mg/dL Assessment and Plan Assessment: This is a 77-year-old woman with history of diabetes who presented emergency department on 03/20/2023 around 10 AM and it appears the patient the had the speech difficulty that started around 1:00 in the morning on 03/20/2023 per the ED team that he was notified the by her . Was felt that she had predominately expressive aphasia. Aphasia and predominately expressive which has resolved today---appears likely TIA. Severe stenosis of the proximal right ICA could not be excluded on that CT angiography but is limited because of motion artifact but on carotid duplex no significant stenosis. Diabetes mellitus Plan: MRI of the brain with and without pending. EEG was performed, which was essentially normal. No epileptiform activity was seen. EEG was technically limited because of myogenic activity seen in the left temporal region. The patient was given aspirin 325 once in the ED and then was started on aspirin 325mg daily. Dr. Penn also started the patient on Plavix 75 mg daily with loading dose of 300mg once yesterday. Prior to this it does not seem she was on antiplatlelets. Lipid panel with cholesterol 133, LDL 67, HDL 36, triglycerides 144. We will decrease Lipitor to 20 mg daily. Hemoglobin A1c 9.4, consistent with poorly controlled diabetes. Recommend optimize diabetes controlled to target A1c < 7.0. Vascular surgery team is consulted for the suspected right ICA stenosis but there is limitation to the test on CTA but on carotid Doppler, there is no significant stenosis. Continue Neuro checks Cardiac monitoring PT, OT and SLD INCLUSION TEACHER are consulted Optimize control of blood pressure to normotensive levels. Defer the rest of the medical management to primary team For DVT prophylaxis on Lovenox.
[2023-03-22 16:38] LABS: Glucose,Whole Blood 239 mg/dL (70-110)
[2023-03-22 20:36] LABS: Glucose,Whole Blood 214 mg/dL (70-110)
[2023-03-22] MEDS: ATORVASTATIN 80 MG TAB PO SCH (21:22)
--- NOTE | 2023-03-22 22:05 | EEG ---
DATE OF SERVICE: 03/22/2023 ELECTROENCEPHALOGRAM REPORT PREAMBLE: This is a 77-year-old female with confusion and possible expressive aphasia. This study is performed to evaluate for any epileptiform activity. EEG FINDING: This is a 21-channel digital EEG recorded with video component, utilizing 10/20 international system with referential and bipolar montages. The recording is somewhat technically limited because of presence of near constant myogenic activity in the left temporal region. Otherwise, the background consists of a fairly well developed and regulated, mixed frequencies of 8 hertz alpha, with some theta activity seen in bihemispheric region. Background is posterior dominant and seems to be slightly reactive to eye opening and closing. Photic driving response was not seen. Drowsiness was seen with appearance of bilaterally symmetric theta frequency rhythm. Deeper stages of sleep were not seen. No definitive focal or generalized epileptiform activity was seen. IMPRESSION: This is essentially a normal awake and drowsy EEG. Study was limited because of near constant myogenic activity in the left temporal region. If your suspicion for seizure is high, suggest prolonged, sleep-deprived EEG. MMODL / IJN: [id number] / [facility] HOSPITALSteve
[2023-03-23 05:59] LABS: Glucose,Whole Blood 156 mg/dL (70-110)
[2023-03-23] MEDS: SODIUM CHLORIDE 0.9% 1,000 ML IV SCH ×2 (06:04→20:01)
[2023-03-23] MEDS: INSULIN ASPART (NovoLOG) 100 UNIT/ML VIAL SQ SCH ×4 (06:04→20:24)
[2023-03-23] MEDS: ENOXAPARIN 40 MG/0.4 ML SYRINGE SQ SCH (08:22)
[2023-03-23] MEDS: ASPIRIN 81 MG PO SCH (08:23)
[2023-03-23] MEDS: diphenhydrAMINE 25 MG CAP PO SCH ×4 (08:23→20:24)
[2023-03-23] MEDS: lisinopriL 10 MG TAB PO SCH (08:23)
[2023-03-23] MEDS: CLOPIDOGREL 75 MG TAB PO SCH (08:23)
[2023-03-23] MEDS: PSYLLIUM HUSK 100% 6 GM PACKET PO SCH ×2 (08:24→20:24)
--- NOTE | 2023-03-23 10:49 | P.CONS ---
History of Present Illness - Reason for Consult Consult date: 03/23/23 wound care - History of Present Illness This is a 77-year-old patient known to the wound care center with a healing ulceration to the right calcaneus. Patient has a stage II pressure ulcer that is being treated at this time with honey alginate. Original cause of wound was Pressure Injury. The date acquired was: 11/19/2022. The wound has been in treatment 7 weeks. The wound is currently classified as a Grade 2 wound with e tiology of Diabetic Wound/Ulcer of the Lower Extremity and is located on the Right Calcaneus. The wound measures 1cm length x 0.8cm width x 0.1cm depth; 0.628cm^2 area and 0.063cm^3 volume. There is Fat Layer (Subcutaneous Tissue) exposed. There is no tunneling or undermining noted. There is a medium amount of serosanguineous drainage noted. The wound margin is flat and intact. There is large (67-100%) red granulation within the wound bed. There is a small (1-33%) amount of necrotic tissue within the wound bed including Adherent Slough. The periwound skin appearance exhibited: Callus, Dry/Scaly. The periwound skin appearance did not exhibit: Crepitus, Excoriation, Induration, Rash, Scarring, Maceration, Atrophie Hector, Cyanosis, Ecchymosis, Hemosiderin Staining, Mottled, Pallor, Rubor, Erythema. Periwound temperature was noted as No Abnormality. Review Of Systems: Constitutional: No fever, no chills, no night sweats. No weight change. No weakness, fatigue or lethargy. No daytime sleepiness. Integumentary:reports wounds, no lesions. No rash or pruritus. No unusual bruising. No change in hair or nails. Physical exam: General Appearance: Alert, cooperative, no distress, appears stated age. Skin: See HPI all other Skin color, texture, tugor normal, no rashes or lesions. Neurologic: Alert oriented x3 Assessment: 1. Stage II pressure ulcer right heel 2. Diabetic foot ulcer Plan: 1. Apply collagen moistened and border foam to the site. Change Wednesday. Patient will turn to the wound care center on March 30 at 3:00 Thank you for the consultation any questions contact the wound care center DNP note has been reviewed and discussed with Dr. Mulligan and the impression and plan of care has been directed as dictated. Past Medical History Past Medical History: Diabetes Mellitus History of Any Multi-Drug Resistant Organisms: MRSA Year Discovered:: 01/26/23 MDRO Source:: Right Heel Past Surgical History: No Surgical Hx Reported Past Psychological History: No Psychological Hx Reported Smoking Status: Never smoker Past Alcohol Use History: None Reported Past Drug Use History: None Reported Medications and Allergies Home Medications Medication Instructions Recorded Confirmed Type metFORMIN HCL [Glucophage] 500 mg PO TID #1 tablet 11/10/22 03/20/23 Rx Semaglutide [Ozempic] 0.25 mg SQ DIRECTED 03/11/23 03/20/23 History Simvastatin [Zocor] 20 mg PO DAILY 03/11/23 03/20/23 History lisinopriL [Zestril] 10 mg PO DAILY 03/11/23 03/20/23 History Baclofen 10 mg PO DAILY PRN 03/20/23 03/20/23 History Allergies Allergy/AdvReac Type Severity Reaction Status Date / Time No Known Allergies Allergy Verified 03/20/23 12:51 Physical Exam Vitals: Vital Signs Temp Pulse Resp BP BP BP Pulse Ox 03/23/23 04:00 98.4 F 96 18 116/70 95 03/23/23 02:00 103 H 16 03/23/23 00:00 98.6 F 103 H 16 117/76 96 03/22/23 21:14 98.2 F 97 16 116/60 98 03/22/23 20:00 97 16 03/22/23 16:00 97 16 104/59 98 03/22/23 12:00 103 H 16 123/65 99 Intake and Output 03/22/23 03/23/23 03/23/23 22:59 06:59 14:59 Intake Total 180 Balance 180 Intake: Oral 180 Other: Voiding Method Toilet Toilet Diaper Diaper Incontinent Incontinent # Voids 1 # Bowel Movements 1 Results CBC & Chem 7: 03/20/23 11:58 03/20/23 10:43 Labs: Abnormal Lab Results - Last 24 Hours (Table) 03/22/23 03/22/23 03/22/23 Range/Units 11:54 16:37 20:35 POC Glucose (mg/dL) 237 H 239 H 214 H (70-110) mg/dL 03/23/23 Range/Units 05:58 POC Glucose (mg/dL) 156 H (70-110) mg/dL Assessment and Plan (1) Stage II pressure ulcer of right heel Current Visit: Yes Status: Acute Code(s): L89.612 - SNOMED Code(s): 58066651865343 (2) Type 2 diabetes mellitus with foot ulcer Current Visit: Yes Status: Acute Code(s): E11.621 - TYPE 2 DIABETES MELLITUS WITH FOOT ULCER; L97.509 - SNOMED Code(s): 700454631
--- NOTE | 2023-03-23 11:24 | P.PN ---
Subjective Progress Note Date: 03/23/23 Patient seen and examined today as a follow-up. No acute changes through the night. Patient denies any focal deficits. She is scheduled to undergo MRI of the brain around 12:30 this afternoon. Objective - Vital Signs Vital signs: Vital Signs Temp 97.0 F L 03/23/23 08:23 Pulse 87 03/23/23 08:23 Resp 18 03/23/23 08:23 BP 127/67 03/23/23 08:23 Pulse Ox 95 03/23/23 08:23 FiO2 Intake & Output 03/22/23 03/23/23 03/23/23 18:59 06:59 18:59 Intake Total 540 180 Balance 540 180 Weight 97.522 kg Intake: Oral 540 180 Other: Voiding Method Incontinent Toilet Toilet External Catheter Diaper Diaper Incontinent Incontinent # Voids 1 # Bowel Movements 1 - Exam General appearance: The patient is alert, oriented, appears in no acute distress. HET: Head is normocephalic and atraumatic. Pupils are equal and reactive. Neck: Supple. Heart: Regular. Lungs: Equal expansion, normal respiratory effort. Abdomen: Soft, nontender, nondistended. Extremities: Normal skin color and turgor. Neurological: No focal deficits. Alert and oriented 3. - Labs CBC & Chem 7: 03/20/23 11:58 03/20/23 10:43 Labs: Abnormal Lab Results - Last 24 Hours (Table) 03/22/23 03/22/23 03/22/23 Range/Units 11:54 16:37 20:35 POC Glucose (mg/dL) 237 H 239 H 214 H (70-110) mg/dL 03/23/23 Range/Units 05:58 POC Glucose (mg/dL) 156 H (70-110) mg/dL Assessment and Plan Assessment: 1. Potential TIA, symptoms of expressive aphasia, now resolved 2. Carotid discordance on imaging 3. CT angiogram limited although upon review there is evidence of potential stenosis of the right internal carotid artery 4. Ultrasound without evidence of high-grade stenosis Plan: 1. Continue dual antiplatelet therapy 2. Await MRI imaging 3. Continue atorvastatin 4. Further recommendations forthcoming based on clinical course, may need to consider diagnostic angiography evidence of ischemic changes to the right brain seen on MRI. Otherwise would recommend continuing medical management. Thank you for this consultation, we will continue to follow The impression and plan of care has been dictated as directed. Dr. Steven I performed a history and examination of this patient, discussed the same with the dictator. I agree with the dictator's note ,documented as a scribe. Any additional findings or plans will be noted.
[2023-03-23 11:51] LABS: Glucose,Whole Blood 231 mg/dL (70-110)
--- NOTE | 2023-03-23 15:46 | MR ---
EXAMINATION TYPE: MR brain wo con DATE OF EXAM: 03/23/2023 1:35 PM CLINICAL INDICATION:Female, 77 years old with history of aphasia. Stroke, Aphasia, stroke. COMPARISON: 03/20/2023. TECHNIQUE: Multi planar, multi sequence imaging was performed through the brain including: T1, T2, In version recovery, Diffusion weighted imaging, and gradient echo imaging. No gadolinium was given. FINDINGS: Cerebral atrophy with proportional dilation of ventricular system.. Scattered foci of high T2 signal intensity are seen within the periventricular white matter. Midline structures show no abnormality. Diffusion-weighted imaging shows no evidence of restricted diffusion. The susceptibility weighted jocelyne ges do not reveal any evidence for micro-hemorrhage. The bone marrow signal is within normal limits. Paranasal sinuses and mastoid air cells: No significant paranasal sinus disease. Visualized orbits: Orbital contents are intact. IMPRESSION: No contrast was utilized due to lack of IV access. 1. No evidence of intracranial mass or acute/subacute infarct. 2. Nonspecific white matter changes, likely secondary to small vessel ischemic disease.
--- NOTE | 2023-03-23 16:31 | P.PN ---
Subjective Progress Note Date: 03/23/23 03/23/2023: Patient was seen for a follow-up. Denies any new neurological symptoms. 03/22/2023: Patient initially seen by Dr. Wander Penn. Please refer to his note for details. Patient is a 77-year-old right-handed female who presented with aphasia and confusion. This has resolved. Patient is undergoing stroke workup. Patient feels she is back to baseline. Some of the workup during our hospital visit consisted of: TSH: 2.290 CT of the head was negative for intracranial hemorrhage or mass effect. CT angiography of the head and neck is reported as markedly limited the evaluation of the internal carotid artery within the neck secondary due to involuntary patient motion. Severe stenosis of the proximal right internal carotid artery cannot be determined with certainty but strongly suspected. Probable mild stenosis of the proximal left ICA stenosis. No significant abnormality of the intracranial arterial circulation Carotid duplex was reported as no evidence of significant hemodynamic stenosis. Cardiac arrhythmia. Atheroscloeritc plaque. Objective - Vital Signs Vital signs: Vital Signs Temp 96.7 F L 03/23/23 12:19 Pulse 100 03/23/23 12:19 Resp 18 03/23/23 12:19 BP 105/57 03/23/23 12:19 Pulse Ox 97 03/23/23 12:19 FiO2 Intake & Output 03/22/23 03/23/23 03/23/23 18:59 06:59 18:59 Intake Total 540 420 Output Total 0 Balance 540 420 Weight 97.522 kg Intake: Oral 540 420 Output: Urine 0 Other: Voiding Method Incontinent Toilet Toilet External Catheter Diaper Diaper Incontinent Incontinent # Voids 1 # Bowel Movements 1 - Exam Patient's mental status, speech and language functions are normal. Patient knows it is March and the year is 2022 and that she is in [facility] in [place]. Speech and language functions are normal. Patient can name and repeat very well. No aphasia or dysarthria. Cranial nerves are normal, pupils are equal, round and reacting, visual buchanan are full with no neglect. Face is symmetric and tongue protrudes to the midline. Muscle strength testing showed no tonic or drift and the strength is normal in arms and legs. No ataxia. Sensations are normal. - Labs CBC & Chem 7: 03/20/23 11:58 03/20/23 10:43 Labs: Abnormal Lab Results - Last 24 Hours (Table) 03/22/23 03/22/23 03/23/23 Range/Units 16:37 20:35 05:58 POC Glucose (mg/dL) 239 H 214 H 156 H (70-110) mg/dL 03/23/23 Range/Units 11:49 POC Glucose (mg/dL) 231 H (70-110) mg/dL Assessment and Plan Assessment: This is a 77-year-old woman with history of diabetes who presented emergency department on 03/20/2023 around 10 AM and it appears the patient the had the speech difficulty that started around 1:00 in the morning on 03/20/2023 per the ED team that he was notified the by her . Was felt that she had predominately expressive aphasia. Aphasia and predominately expressive which has resolved today---appears likely TIA. Severe stenosis of the proximal right ICA could not be excluded on that CT angiography but is limited because of motion artifact but on carotid duplex no significant stenosis. Diabetes mellitus Plan: MRI of the brain revealed no evidence of intracranial mass or acute/subacute i nfarct. Nonspecific white matter changes, likely secondary to small vessel ischemic disease. I personally reviewed MRI, I agree with the findings. EEG was performed, which was essentially normal. No epileptiform activity was seen. EEG was technically limited because of myogenic activity seen in the left temporal region. The patient was given aspirin 325 once in the ED and then was started on aspirin 325mg daily. Dr. Penn also started the patient on Plavix 75 mg daily with loading dose of 300mg once. Prior to this it does not seem she was on antiplatlelets. Lipid panel with cholesterol 133, LDL 67, HDL 36, triglycerides 144. We will decrease Lipitor to 40 mg daily. Patient at home was taking Zocor 20 mg daily. Hemoglobin A1c 9.4, consistent with poorly controlled diabetes. Recommend optimize diabetes control to target A1c < 7.0. Vascular surgery team is consulted for the suspected right ICA stenosis but there is limitation to the test on CTA but on carotid Doppler, there is no significant stenosis. Await vascular surgery final recommendation based upon MRI results. Continue Neuro checks Cardiac monitoring PT, OT and CARVER AND CHECKERER SPECIALS are consulted Optimize control of blood pressure to normotensive levels. Defer the rest of the medical management to primary team For DVT prophylaxis on Lovenox.
[2023-03-23 16:38] LABS: Glucose,Whole Blood 307 mg/dL (70-110)
[2023-03-23 20:11] LABS: Glucose,Whole Blood 273 mg/dL (70-110)
--- NOTE | 2023-03-23 20:13 | P.PN ---
Progress Note - Text Progress Note Date: 03/23/23 Chief Complaint: Neurologic changes This is a pleasant 77-year-old patient, follows Dr. Delmy Morris. baseline is somewhat unsteady in walking. Does not use a cane or walker. went into the bathroom and found the patient sitting on the toilet rocking back and forth. Speech was covered. Called a neighbor. Left side was found weakened. Patient is cautious but did not respond to questions. EMS noted aphasia. In the ER patient is able to answer questions and then becomes a bit confused. She seems to be neglecting the right side. at the bedside. No trouble swallowing. No change in vision. Slight headache. March 21: Patient's speech is back to normal. Being followed better. No right-sided neglect. Very slight weakness on the left side., If any. [place] to be TIA. Being followed by neurology. Discussed with the patient and the son at the bedside. Clinically much better. Pending MRI. Seen by vascular. March 22: Doing much better. Fetus a left-sided creatinine improved. No right-sided inattention. and son at the bedside. Pending MRI. March 23: Patient was seen this morning. Pending MRI this afternoon. Later results came back showing no acute stroke. Plan for discharge tomorrow. Active Medications Aspirin (Aspirin 81 Mg) 81 mg PO DAILY [facility] Last Admin: 03/23/23 08:23 Dose: 81 mg Atorvastatin Calcium (Atorvastatin 40 Mg Tab) 40 mg PO HS RAMILA Baclofen (Baclofen 10 Mg Tab) 10 mg PO DAILY PRN PRN Reason: Muscle Spasm Clopidogrel Bisulfate (Clopidogrel 75 Mg Tab) 75 mg PO DAILY [facility] Last Admin: 03/23/23 08:23 Dose: 75 mg Dextrose/Water (Dextrose 50% Syringe 50 Ml) 25 ml IVP PER PROTOCOL PRN; Protocol PRN Reason: Hypoglycemia Dextrose/Water (Dextrose 50% Syringe 50 Ml) 50 ml IVP PER PROTOCOL PRN; Protocol PRN Reason: Hypoglycemia Diphenhydramine HCl (Diphenhydramine 25 Mg Cap) 25 mg PO QID [facility] Last Admin: 03/23/23 17:18 Dose: 25 mg Enoxaparin Sodium (Enoxaparin 40 Mg/0.4 Ml Syringe) 40 mg SQ DAILY [facility] Last Admin: 03/23/23 08:22 Dose: 40 mg Sodium Chloride (Saline 0.9%) 1,000 mls @ 75 mls/hr IV .[id number] [facility] Last Admin: 03/23/23 20:01 Dose: Not Given Insulin Aspart (Insulin Aspart (Novolog) 100 Unit/Ml Vial) 0 unit SQ ACHS [facility]; Protocol Last Admin: 03/23/23 17:17 Dose: 8 unit Lisinopril (Lisinopril 10 Mg Tab) 10 mg PO DAILY [facility] Last Admin: 03/23/23 08:23 Dose: 10 mg Ondansetron HCl (Ondansetron 4 Mg/2 Ml Vial) 4 mg IVP Q6HR PRN PRN Reason: Nausea And Vomiting Psyllium Hydrophilic Mucilloid (Psyllium Husk 100% 6 Gm Packet) 6 gm PO BID [facility] Last Admin: 03/23/23 08:24 Dose: 6 gm Past medical history to include: Diabetes, arthritis, Baseline gait dysfunction Social history: Does not smoke or drink alcohol. . Physical examination: VITAL SIGNS: 96.7, 100, 18, 105/57, 97% room air GENERAL:, Comfortable EYES: Pupils equal. Conjunctiva normal. HEENT: External appearance of nose and ears normal, oral cavity grossly normal. NECK: JVD not raised; masses not palpable. HEART: First and second heart sounds are normal; no edema. LUNGS: Respiratory rate normal; clear to auscultation. ABDOMEN: Soft, nontender, liver spleen not palpable, no masses palpable. PSYCH: Able to answer questions appropriately.. MUSCULOSKELETAL:No Clubbing/cyanosis;muscles-grossly intact. OA NEUROLOGICAL: Cranial nerves grossly intact; no facial asymmetry, power and sensation grossly intact. No further neuro deficits INVESTIGATIONS, reviewed in the clinical context: MRI brain without contrast: Chronic changes. No stroke 2-D echocardiogram: EF 55%. Carotid Doppler: No stenosis LDL 67 White count 13.7 hemoglobin 16.7 platelets 296 sodium 136 potassium 3.8 BUN 11 creatinine 1.25 glucose 317 Urine drug screen: Negative EKG tracing personally reviewed by me-sinus tachycardia. Nonspecific T-wave c hanges. Chest x-ray film personally reviewed by me-no obvious abnormality CT angiogram of the head and neck: Severe stenosis proximal right internal carotid artery. Strongly suspected. CT brain: Age appropriate atrophy Assessment and plan: -Acute left-sided weakness with some right-sided neglect.. Intermittent dysarthria: Nearly resolved.. : TIA Aspirin. Plavix. Lipitor. Neurology following. MRI brain-chronic changes, no stroke . Carotid Doppler-no stenosis . EEG. -With some limitations. 2-D echo-unremarkable. -Acute dysarthria, intermittent/fluctuating : Resolved Speech therapy consult -Proximal right internal carotid artery severe stenosis suspected. Vascular following..-Carotid discordance. On imaging Follow-up vascular outpatient -Diabetes mellitus type 2, uncontrolled with hyperglycemia metformin 500 mg before meals 3 times a day -Obesity BMI 37.8 Weight loss measures -Baseline gait dysfunction possibly precipitating fall. PTOT. -Full code MRI results noted. Discharge tomorrow. Past Medical History Past Medical History: Diabetes Mellitus History of Any Multi-Drug Resistant Organisms: MRSA Date of last positivie culture/infection: 01/26/23 MDRO Source:: Right Heel Past Surgical History: No Surgical Hx Reported Past Psychological History: No Psychological Hx Reported Smoking Status: Never smoker Past Alcohol Use History: None Reported Past Drug Use History: None Reported
[2023-03-23] MEDS ORDERED: ATORVASTATIN 40 MG TAB PO SCH (21:00)
[2023-03-24 05:57] LABS: Glucose,Whole Blood 145 mg/dL (70-110)
[2023-03-24] MEDS: INSULIN ASPART (NovoLOG) 100 UNIT/ML VIAL SQ SCH ×2 (06:11→12:17)
--- NOTE | 2023-03-24 10:03 | P.PN ---
Subjective Progress Note Date: 03/24/23 Patient seen and examined today as a follow-up. She is without any acute changes through the night. No focal deficits reported. Patient underwent MRI of the brain without contrast, apparently patient did not have IV access for contrast. Report states no evidence of intracranial mass or acute/subacute infarct. Nonspecific white matter changes, likely secondary to small vessel ischemic disease. Objective - Vital Signs Vital signs: Vital Signs Temp 98.9 F 03/23/23 20:00 Pulse 106 H 03/24/23 04:00 Resp 20 03/24/23 04:00 BP 147/63 03/24/23 04:00 Pulse Ox 93 L 03/24/23 04:00 FiO2 Intake & Output 03/23/23 03/24/23 03/24/23 18:59 06:59 18:59 Intake Total 600 120 Output Total 0 Balance 600 120 Intake: Oral 600 120 Output: Urine 0 Other: Voiding Method Toilet Toilet Diaper Diaper Incontinent Incontinent # Voids 1 # Bowel Movements 1 - Exam General appearance: The patient is alert, oriented, appears in no acute distress. HET: Head is normocephalic and atraumatic. Pupils are equal and reactive. Neck: Supple. Heart: Regular. Lungs: Equal expansion, normal respiratory effort. Abdomen: Soft, nondistended. Extremities: Normal skin color and turgor. Neurological: No focal deficits. Alert and oriented 3. - Labs CBC & Chem 7: 03/20/23 11:58 03/20/23 10:43 Labs: Abnormal Lab Results - Last 24 Hours (Table) 03/23/23 03/23/23 03/23/23 Range/Units 11:49 16:38 20:09 POC Glucose (mg/dL) 231 H 307 H 273 H (70-110) mg/dL 03/24/23 Range/Units 05:56 POC Glucose (mg/dL) 145 H (70-110) mg/dL Assessment and Plan Assessment: 1. Potential TIA, symptoms of expressive aphasia, now resolved 2. Carotid discordance on imaging 3. CT angiogram limited although upon review there is evidence of potential stenosis of the right internal carotid artery 4. Ultrasound without evidence of high-grade stenosis Plan: 1. Continue dual antiplatelet therapy 2. Continue atorvastatin 3. MRI brain without contrast reviewed no evidence of intracranial mass or acute subacute infarct. Patient to follow up outpatient with vascular surgery f or continued surveillance of carotid stenosis. 4. Patient is cleared from vascular surgery for discharge. Thank you for this consultation, we will sign off at this time. The impression and plan of care has been dictated as directed. Dr. Hagen I performed a history and examination of this patient, discussed the same with the dictator. I agree with the dictator's note ,documented as a scribe. Any additional findings or plans will be noted.
[2023-03-24] MEDS: PSYLLIUM HUSK 100% 6 GM PACKET PO SCH (10:11)
[2023-03-24] MEDS: ASPIRIN 81 MG PO SCH (10:12)
[2023-03-24] MEDS: diphenhydrAMINE 25 MG CAP PO SCH ×2 (10:12→12:24)
[2023-03-24] MEDS: lisinopriL 10 MG TAB PO SCH (10:12)
[2023-03-24] MEDS: CLOPIDOGREL 75 MG TAB PO SCH (10:12)
[2023-03-24] MEDS: ENOXAPARIN 40 MG/0.4 ML SYRINGE SQ SCH (10:12)
[2023-03-24 10:45] VITALS: BP 112/73; PULSE 88; RESP 18; TEMP 97.8
[2023-03-24 11:25] LABS: Glucose,Whole Blood 248 mg/dL (70-110)
--- NOTE | 2023-03-24 16:32 | CDI ---
Documentation Clarification Form Date: 03/24/2023 03:52:34 PM From: Malika Stephenson RN, CCDS Admit Date: 03/20/2023 12:42:00 PM Patient Name: Elzbieta Toribio Visit Number: [id number] Discharge Date: ATTENTION: The Clinical Documentation Specialists (CDI) and [facility] Coding Staff appreciate your assistance in clarifying documentation. Please respond to the clarification below the line at the bottom and electronically sign. The CDI & [facility] Coding staff will review the response and follow-up if needed. Please note: Queries are made part of the Legal Health Record. If you have any questions, please contact the author of this message via ITS. Dr. Trevor Ibarra TIA is documented in the progress notes starting on03/22/23. Additional clarification regarding the etiology of the TIA is requested. Patient history/risk factors: Diabetes Mellitus Clinical indicators: 77-year-old female with altered level consciousness, abnormal speech, garbled speech, expressive aphasia. 03/20 CT head Age-appropriate atrophy. No acute bleed or mass effect. 03/20 CTA: Carotid discordance on imaging. Markedly limited the evaluation of the internal carotid artery within the neck secondary due to involuntary. Severe stenosis of the proximal right internal carotid artery cannot be determined with certainty but strongly suspected. Probable mild stenosis of the proximal left ICA stenosis. 03/20 Carotid US: No evidence of significant hemodynamic stenosis. Cardiac arrhythmia. Atherosclerotic plaque. 03/20Echo: Left ventricular EF estimated at 55% 03/20 MRI: No evidence of intracranial mass or acute/subacute infarct. Nonspecific white matter change , likely secondary to small vessel ischemic disease. Treatment: Cardiac/Telemetry monitoring Neuro check Per orders. PT, OT and BODY DESIGNER Consult Plavix 75 MG PO Daily Lipitor 80 MG Daily, ASA 325 MG Daily Please clarify the etiology of the TIA, if known: [ ] Carotid Stenosis [ ] Likely secondary to small vessel ischemic disease. [ ] Other (please specify) [ + ] Etiology unknown or Unable to determine. (Template Last Revised: August 2020) MTDD
--- NOTE | 2023-03-24 18:20 | P.DS ---
Providers Date of admission: 03/20/23 12:42 Expected date of discharge: 03/24/23 Attending physician: Trevor Ibarra Consults: 03/20/23 12:42 Consult Physician Routine Consulting Provider: Wander Penn Consult Reason/Comments: Acute CVA, expressive aphasia Do you want consulting provider notified?: Yes 03/20/23 13:58 Consult Physician Routine Consulting Provider: Susan Hagen Consult Reason/Comments: Severe ICA Stenosis Do you want consulting provider notified?: Yes Primary care physician: Delmy Morris [place] [facility] Course: Chief Complaint: Neurologic changes This is a pleasant 77-year-old patient, follows Dr. Delmy Morris. baseline is somewhat unsteady in walking. Does not use a cane or walker. went into the bathroom and found the patient sitting on the toilet rocking back and forth. Speech was covered. Called a neighbor. Left side was found weakened. Patient is cautious but did not respond to questions. EMS noted aphasia. In the ER patient is able to answer questions and then becomes a bit confused. She seems to be neglecting the right side. at the bedside. No trouble swallowing. No change in vision. Slight headache. March 21: Patient's speech is back to normal. Being followed better. No right-sided neglect. Very slight weakness on the left side., If any. [place] to be TIA. Being followed by neurology. Discussed with the patient and the son at the bedside. Clinically much better. Pending MRI. Seen by vascular. March 22: Doing much better. Fetus a left-sided creatinine improved. No right-sided inattention. and son at the bedside. Pending MRI. March 23: Patient was seen this morning. Pending MRI this afternoon. Later results came back showing no acute stroke. Plan for discharge tomorrow. March 24: MRI did not show any acute stroke. Cleared by neurology for discharge. He'll take Plavix for 3 weeks and aspirin to continue. Discussed questions answered. Follow up with neurology outpatient. Past medical history to include: Diabetes, arthritis, Baseline gait dysfunction Social history: Does not smoke or drink alcohol. . Physical examination: VITAL SIGNS: 97.8, 88, 18, 1 12 x 73, 94% room air GENERAL:, Comfortable EYES: Pupils equal. Conjunctiva normal. HEENT: External appearance of nose and ears normal, oral cavity grossly normal. NECK: JVD not raised; masses not palpable. HEART: First and second heart sounds are normal; no edema. LUNGS: Respiratory rate normal; clear to auscultation. ABDOMEN: Soft, nontender, liver spleen not palpable, no masses palpable. PSYCH: Able to answer questions appropriately.. MUSCULOSKELETAL:No Clubbing/cyanosis;muscles-grossly intact. OA NEUROLOGICAL: Cranial nerves grossly intact; no facial asymmetry, power and sensation grossly intact. No further neuro deficits INVESTIGATIONS, reviewed in the clinical context: MRI brain without contrast: Chronic changes. No stroke 2-D echocardiogram: EF 55%. Carotid Doppler: No stenosis LDL 67 White count 13.7 hemoglobin 16.7 platelets 296 sodium 136 potassium 3.8 BUN 11 creatinine 1.25 glucose 317 Urine drug screen: Negative EKG tracing personally reviewed by me-sinus tachycardia. Nonspecific T-wave changes. Chest x-ray film personally reviewed by me-no obvious abnormality CT angiogram of the head and neck: Severe stenosis proximal right internal carotid artery. Strongly suspected. CT brain: Age appropriate atrophy Assessment and plan: -Acute left-sided weakness with some right-sided neglect.. Intermittent dysarthria: Nearly resolved.. : TIA Aspirin. Plavix. Lipitor. Neurology following. MRI brain-chronic changes, no stroke . Carotid Doppler-no stenosis . EEG. -With some limitations. 2-D echo-unremarkable. -Acute dysarthria, intermittent/fluctuating : Resolved Speech therapy consult -Proximal right internal carotid artery severe stenosis suspected. Vascular following..-Carotid discordance. On imaging Follow-up vascular outpatient -Diabetes mellitus type 2, uncontrolled with hyperglycemia metformin 500 mg before meals 3 times a day -Obesity BMI 37.8 Weight loss measures -Baseline gait dysfunction possibly precipitating fall. PTOT. -Full code Disposition: Home Past Medical History Past Medical History: Diabetes Mellitus History of Any Multi-Drug Resistant Organisms: MRSA Date of last positivie culture/infection: 01/26/23 MDRO Source:: Right Heel Past Surgical History: No Surgical Hx Reported Past Psychological History: No Psychological Hx Reported Smoking Status: Never smoker Past Alcohol Use History: None Reported Past Drug Use History: None Reported Plan - Discharge Summary New Discharge Prescriptions: New Aspirin 81 mg PO DAILY tab Psyllium Husk 100% [Metamucil Packet] 6 gm PO BID packet Clopidogrel [Plavix] 75 mg PO DAILY #20 tab Atorvastatin [Lipitor] 40 mg PO HS #30 tab Continue metFORMIN HCL [Glucophage] 500 mg PO TID #1 tablet lisinopriL [Zestril] 10 mg PO DAILY Semaglutide [Ozempic] 0.25 mg SQ DIRECTED Baclofen 10 mg PO DAILY PRN PRN Reason: Muscle Spasm Discontinued Simvastatin [Zocor] 20 mg PO DAILY Discharge Medication List metFORMIN HCL [Glucophage] 500 mg PO TID #1 tablet 11/10/22 [Rx] Semaglutide [Ozempic] 0.25 mg SQ DIRECTED 03/11/23 [History] lisinopriL [Zestril] 10 mg PO DAILY 03/11/23 [History] Baclofen 10 mg PO DAILY PRN 03/20/23 [History] Aspirin 81 mg PO DAILY tab 03/24/23 [Rx] Atorvastatin [Lipitor] 40 mg PO HS #30 tab 03/24/23 [Rx] Clopidogrel [Plavix] 75 mg PO DAILY #20 tab 03/24/23 [Rx] Psyllium Husk 100% [Metamucil Packet] 6 gm PO BID packet 03/24/23 [Rx] Follow up Appointment(s)/Referral(s): Susan Hagen DO [STAFF PHYSICIAN] - 04/14/23 10:00 am Delmy Morris MD [Primary Care Provider] - 03/26/23 8:40 am [facility], [NON-STAFF] - Wander Bowman MD [STAFF PHYSICIAN] - 10 Days (Requires a referral from your primary care provider. ) [facility] [NON-STAFF] - 03/30/23 3:00 pm Patient Instructions/Handouts: Transient Ischemic Attack (DC) Discharge Disposition: HOME WITH HOME HEALTH SERVICES
== END 2023-03-24 16:15 | disposition home health service (06) | DRG 68 ==
LOC: EC 09:51 → 3SCARD 12:42
PROVIDERS: ADMIT Hospitalist; ATTEND Hospitalist
DX: I65.23 Occlusion and stenosis of bilateral carotid arteries (principal); L97.419 Non-pressure chronic ulcer of right heel and midfoot with unspecified severity; R41.4 Neurologic neglect syndrome; G81.94 Hemiplegia, unspecified affecting left nondominant side; R47.1 Dysarthria and anarthria; E11.621 Type 2 diabetes mellitus with foot ulcer; E66.9 Obesity, unspecified; Z68.37 Body mass index [BMI] 37.0-37.9, adult; R47.01 Aphasia; R26.9 Unspecified abnormalities of gait and mobility; L89.612 Pressure ulcer of right heel, stage 2; R29.705 NIHSS score 5; Z86.14 Personal history of Methicillin resistant Staphylococcus aureus infection; M19.90 Unspecified osteoarthritis, unspecified site; Z91.81 History of falling; Z79.02 Long term (current) use of antithrombotics/antiplatelets; Z79.82 Long term (current) use of aspirin; Z79.84 Long term (current) use of oral hypoglycemic drugs; Z79.899 Other long term (current) drug therapy
CPT/HCPCS: 36415; 51702; 70450; 70496; 70498; 70551; 71046; 80053; 80061; 80306; 81001; 82550; 83036; 84443; 84484; 85025; 85610; 85730; 87324; 93005; 93306; 93880; 94760; 95816; 96360; 99291

== ENCOUNTER 2023-05-18 18:31 | Emergency (ER) | payer MEDICARE ==
[2023-05-18 18:53] VITALS: BP 143/86; PULSE 92; RESP 18; TEMP 98
[2023-05-18] MEDS ORDERED: HYDROcodone/APAP 7.5-325MG 1 EACH TAB PO ONE (19:28)
--- NOTE | 2023-05-18 20:08 | ED ---
Fall HPI - General Chief Complaint: Fall Stated Complaint: R foot pain Time Seen by Provider: 05/18/23 18:54 Source: EMS Mode of arrival: EMS - History of Present Illness Initial Comments: 77-year-old female presenting with chief complaint of right foot and toe pain. Patient was going up 3 stairs when she had a mechanical fall causing her to fall forward onto the toes. No head injury, loss of consciousness, use of blood thinners. No chest pain, difficulty breathing, abdominal pain, numbness, tingling, weakness. - Related Data Home Medications Medication Instructions Recorded Confirmed Semaglutide [Ozempic] 0.25 mg SQ DIRECTED 03/11/23 03/20/23 lisinopriL [Zestril] 10 mg PO DAILY 03/11/23 03/20/23 Baclofen 10 mg PO DAILY PRN 03/20/23 03/20/23 Previous Rx's Medication Instructions Recorded metFORMIN HCL [Glucophage] 500 mg PO TID #1 tablet 11/10/22 Aspirin 81 mg PO DAILY tab 03/24/23 Atorvastatin [Lipitor] 40 mg PO HS #30 tab 03/24/23 Clopidogrel [Plavix] 75 mg PO DAILY #20 tab 03/24/23 Psyllium Husk 100% [Metamucil 6 gm PO BID packet 03/24/23 Packet] Allergies Allergy/AdvReac Type Severity Reaction Status Date / Time No Known Allergies Allergy Verified 05/18/23 18:49 Review of Systems ROS Statement: Those systems with pertinent positive or pertinent negative responses have been documented in the HPI. ROS Other: All systems not noted in ROS Statement are negative. Past Medical History Past Medical History: Diabetes Mellitus History of Any Multi-Drug Resistant Organisms: MRSA Date of last positivie culture/infection: 04/13/23 MDRO Source:: Right Heel Past Surgical History: No Surgical Hx Reported Past Psychological History: No Psychological Hx Reported Smoking Status: Never smoker Past Alcohol Use History: None Reported Past Drug Use History: None Reported General Exam Limitations: no limitations General appearance: alert, in no apparent distress Head exam: Present: atraumatic, normocephalic, normal inspection Eye exam: Present: normal appearance, EOMI Neck exam: Present: normal inspection, full ROM Respiratory exam: Present: normal lung sounds bilaterally. Absent: respiratory distress, wheezes, rales, rhonchi, stridor Cardiovascular Exam: Present: regular rate, normal rhythm, normal heart sounds. Absent: systolic murmur, diastolic murmur, rubs, gallop, clicks Extremities exam: Present: normal inspection, full ROM, tenderness Neurological exam: Present: alert, oriented X3 Psychiatric exam: Present: normal affect, normal mood Skin exam: Present: warm, dry, intact, normal color. Absent: rash Course Vital Signs 05/18/23 18:50 Temperature 98 F Pulse Rate 92 Respiratory 18 Rate Blood Pressure 143/86 O2 Sat by Pulse 96 Oximetry Medical Decision Making - Medical Decision Making Was pt. sent in by a medical professional or institution (, PA, TITLE SPECIALIST, urgent care, hospital, or snf...) When possible be specific @ -No Did you speak to anyone other than the patient for history (EMS, parent, family, police, friend...)? What history was obtained from this source @ -No Did you review nursing and triage notes (agree or disagree)? Why? @ -I reviewed and agree with nursing and triage notes Were old charts reviewed (outside hosp., previous admission, EMS record, old EKG, old radiological studies, urgent care reports/EKG's, snf records)? Report findings @ -No old charts were reviewed Differential Diagnosis (chest pain, altered mental status, abdominal pain women, abdominal pain men, vaginal bleeding, weakness, fever, dyspnea, syncope, headache, dizziness, GI bleed, back pain, seizure, CVA, palpatations, mental health, musculoskeletal)? @ -Differential Musculoskeletal Muscular strain, contusion, ligament sprain, fracture, arthritis, septic arthritis, bursitis, cellulitis, muscle spasm, nerve compression, DVT, arterial occlusion, herpes zoster, electrolyte abnormality, tumor.... This is not meant to be in all inclusive list EKG interpreted by me (3pts min.). @ -As above X-rays interpreted by me (1pt min.). @ -X-ray shows no fracture or dislocation to the right foot CT interpreted by me (1pt min.). @ -None done U/S interpreted by me (1pt. min.). @ -None done What testing was considered but not performed or refused? (CT, X-rays, U/S, labs)? Why? @ -None What meds were considered but not given or refused? Why? @ -None Did you discuss the management of the patient with other professionals (professionals i.e. Dr., PA, TITLE SPECIALIST, lab, RT, psych nurse, social service coordinator, audiology technician, teacher, chief operating officer, telephonic nurse case manager)? Give summary @ -No Was smoking cessation discussed for >3mins.? @ -No Was critical care preformed (if so, how long)? @ -No Were there social determinants of health that impacted care today? How? (Homelessness, low income, unemployed, alcoholism, drug addiction, transportation, low edu. Level, literacy, decrease access to med. care, fdc, rehab)? @ -No Was there de-escalation of care discussed even if they declined (Discuss DNR or withdrawal of care, Hospice)? DNR status @ -No What co-morbidities impacted this encounter? (DM, HTN, Smoking, COPD, CAD, Cancer, CVA, ARF, Chemo, Hep., AIDS, mental health diagnosis, sleep apnea, mo rbid obesity)? @ -None Was patient admitted / discharged? Hospital course, mention meds given and route, prescriptions, significant lab abnormalities, going to OR and other pertinent info. @ -77-year-old female presenting with chief complaint of right foot pain after mechanical fall today. No head injury, loss of consciousness, use of blood thinners. She is neurovascularly intact. X-rays negative. Nurse Alley is able to get the patient up for ambulation. Patient will be able to ambulate with her walker at home. Educated on supportive management of foot sprain. Follow-up with PCP. Report back to ER with any new or worsening symptoms. Discussed return parameters and answered all questions. Patient conveyed verbal understanding and agreed to the plan. I discussed this case in detail with my attending Dr. Zepeda Undiagnosed new problem with uncertain prognosis? @ -No Drug Therapy requiring intensive monitoring for toxicity (Heparin, Nitro, Insulin, Cardizem)? @ -No Were any procedures done? @ -No Diagnosis/symptom? @ -Foot sprain Acute, or Chronic, or Acute on Chronic? @ -Acute Uncomplicated (without systemic symptoms) or Complicated (systemic symptoms)? @ -uncomplicated Side effects of treatment? @ -No Exacerbation, Progression, or Severe Exacerbation? @ -No Poses a threat to life or bodily function? How? (Chest pain, USA, [place], pneumonia, PE, COPD, DKA, ARF, appy, cholecystitis, CVA, Diverticulitis, Homicidal, Suicidal, threat to staff... and all critical care pts) @ -No Disposition Clinical Impression: Foot sprain Disposition: HOME SELF-CARE Condition: Good Instructions (If sedation given, give patient instructions): Foot Sprain (ED) Additional Instructions: Follow-up with PCP. Report back to ER if any new or worsening symptoms. Take Motrin and Tylenol as needed for pain control. Rest ice and elevate the foot. Is patient prescribed a controlled substance at d/c from ED?: No Referrals: Brooks Mazariegos DO [Primary Care Provider] - 1-2 days Time of Disposition: 20:48
--- NOTE | 2023-05-18 20:39 | XR ---
EXAMINATION TYPE: XR foot complete RT DATE OF EXAM: 05/18/2023 CLINICAL HISTORY: pain TECHNIQUE: Frontal, lateral and oblique images of the right foot are obtained. COMPARISON: None. FINDINGS: There is no acute fracture/dislocation evident. The joint spaces appear within normal bassett its. Dorsal soft tissue swelling noted. IMPRESSION: There is no acute fracture or dislocation. ICD 10 NO FRACTURE, INITIAL EVALUATION
== END 2023-05-18 21:25 | disposition home or self-care (01) ==
LOC: EC 18:31 → SUPCPDRO 18:31 → EC 21:25
DX: S93.601A Unspecified sprain of right foot, initial encounter (principal); E11.9 Type 2 diabetes mellitus without complications; Z79.84 Long term (current) use of oral hypoglycemic drugs; W10.9XXA Fall (on) (from) unspecified stairs and steps, initial encounter
CPT/HCPCS: 99284

== ENCOUNTER 2023-11-14 22:34 | Observation (INO) | payer MEDICARE ==
--- NOTE | 2023-11-15 01:14 | CT ---
EXAM: CT Head Without Intravenous Contrast CLINICAL HISTORY: ITS.REASON CT Reason: weakness TECHNIQUE: Axial computed tomography images of the head/brain without intravenous contrast. CTDI is 49.2 mGy and DLP is 1125.4 mGy-cm. This CT exam was performed using one or more of the following dose reduction techniques: automated exposure control, adjustment of the mA and/or kV according to patient size, and/or use of iterative reconstruction technique. COMPARISON: No relevant prior studies available. FINDINGS: No acute intracranial hemorrhage. No midline shift or mass effect. The territorial wilde-white matter differentiation is maintained throughout. Age-related cerebral volume loss. Periventricular and subcortical white matter hypoattenuation, consistent with chronic microangiopathy. The visualized orbits appear grossly unremarkable. The calvarium is intact. The visualized paranasal sinuses and mastoid air cells are grossly clear. IMPRESSION: No acute intracranial hemorrhage, midline shift, or mass effect.
--- NOTE | 2023-11-15 01:18 | XR ---
EXAM: XR Chest, 2 Views CLINICAL HISTORY: XR Reason: Weakness TECHNIQUE: Frontal and lateral views of the chest. COMPARISON: March 20, 2023 FINDINGS: Lungs: Lung volumes are low with central bronchovascular crowding. Possible mild basilar subsegmental atelectasis, less likely edema. Pleural space: Unremarkable. No pneumothorax. Heart: Severe calcification of the mitral valve, unchanged. No cardiomegaly. Mediastinum: Unremarkable. Normal mediastinal contour. Bones/joints: Mild degenerative changes in the thoracic spine. No acute fracture. Upper abdomen: The stomach is distended but gas and fluid. No pneumoperitoneum. IMPRESSION: Lung volumes are low with central bronchovascular crowding. Possible mild basilar subsegmental atelectasis, less likely edema.
[2023-11-15 02:05] LABS: Basophils % (A) 0 %; Eosinophils # (A) 0.2 k/uL (0-0.7); Eosinophils % (A) 2 %; HCT 40.4 % (34.0-46.0); HGB 13.4 gm/dL (11.4-16.0); Lymphocytes # (A) 2.6 k/uL (1.0-4.8); Lymphocytes % (A) 29 %; MCH 32.1 pg (25.0-35.0); MCHC 33.1 g/dL (31.0-37.0); MCV 97.1 fL (80.0-100.0); Mean Platelet Volume 7.8; Monocytes # (A) 0.5 k/uL (0-1.0); Monocytes % (A) 6 %; Neutrophils # (A) 5.4 k/uL (1.3-7.7); Neutrophils % (A) 60 %; Platelet Count 277 k/uL (150-450); RBC 4.16 m/uL (3.80-5.40)
[2023-11-15 02:15] LABS: ALT 10 U/L (4-34); AST 18 U/L (14-36); African American GFR (CKD) 57 (>60 ml/min/1.73 sqM); Albumin 3.3 g/dL (3.5-5.0); Alkaline Phosphatase 74 U/L (38-126); Anion Gap 6 mmol/L; Blood Urea Nitrogen 16 mg/dL (7-17); Calcium 8.7 mg/dL (8.4-10.2); Carbon Dioxide 27 mmol/L (22-30); Chloride 104 mmol/L (98-107); Glucose 151 mg/dL (74-99); Magnesium 1.1 mg/dL (1.6-2.3); Non-African American GFR(CKD) 50 (>60 ml/min/1.73 sqM); Potassium 4.2 mmol/L (3.5-5.1); Sodium 137 mmol/L (137-145); Total Bilirubin 0.4 mg/dL (0.2-1.3); Total Protein 6.1 g/dL (6.3-8.2)
[2023-11-15 02:17] LABS: Partial Thromboplastin Time 23.7 sec (22.0-30.0); Prothrombin Time 10.7 sec (10.0-12.5)
[2023-11-15] MEDS: SODIUM CHLORIDE 0.9% 1,000 ML IV STA ×2 (02:39→03:35)
[2023-11-15] MEDS ORDERED: ACETAMINOPHEN TAB 325 MG TAB PO PRN (03:00)
[2023-11-15] MEDS ORDERED: NALOXONE 0.4 MG/ML 1 ML VIAL IV PRN (03:00)
--- NOTE | 2023-11-15 03:01 | ED ---
General Adult HPI - General Chief complaint: Weakness Stated complaint: Weakness Time Seen by Provider: 11/14/23 22:36 Source: patient, RN notes reviewed, old records reviewed Mode of arrival: EMS Limitations: physical limitation - History of Present Illness Initial comments: Patient is a 77-year-old female presents emergency department complaining of weakness. Has been ongoing for an unknown period of time but is complaining of generalized weakness. No obvious symptoms or pain otherwise. Denies any nausea, vomiting, diarrhea. Has a history of diabetes. Denies any fevers, chills, chest pain, shortness of breath. States she has diffuse weakness of her lower extremities as well as upper extremities. Patient was found at home when she became weak and collapsed to the ground with help of her . feels like he cannot take care of her. Patient presents for further evaluation at this time. - Related Data Home Medications Medication Instructions Recorded Confirmed Semaglutide [Ozempic] 0.25 mg SQ DIRECTED 03/11/23 03/20/23 lisinopriL [Zestril] 10 mg PO DAILY 03/11/23 03/20/23 Baclofen 10 mg PO DAILY PRN 03/20/23 03/20/23 Previous Rx's Medication Instructions Recorded metFORMIN HCL [Glucophage] 500 mg PO TID #1 tablet 11/10/22 Aspirin 81 mg PO DAILY tab 03/24/23 Atorvastatin [Lipitor] 40 mg PO HS #30 tab 03/24/23 Clopidogrel [Plavix] 75 mg PO DAILY #20 tab 03/24/23 Psyllium Husk 100% [Metamucil 6 gm PO BID packet 03/24/23 Packet] Allergies Allergy/AdvReac Type Severity Reaction Status Date / Time No Known Allergies Allergy Verified 11/15/23 01:19 Review of Systems ROS Statement: Those systems with pertinent positive or pertinent negative responses have been documented in the HPI. Review of Systems: CONST: Denies fever EYES: Denies blurry vision ENT: Denies nasal congestion C/V: Denies Chest pain RESP: Denies shortness of breath GI: Denies abdominal pain : Denies dysuria SKIN: Denies rash. MSK: Denies joint pain. NEURO: Denies headache ROS Other: All systems not noted in ROS Statement are negative. Past Medical History Past Medical History: Diabetes Mellitus History of Any Multi-Drug Resistant Organisms: MRSA Date of last positivie culture/infection: 04/13/23 MDRO Source:: Right Heel Past Surgical History: No Surgical Hx Reported Past Psychological History: No Psychological Hx Reported Smoking Status: Never smoker Past Alcohol Use History: None Reported Past Drug Use History: None Reported General Exam - General Exam Comments Initial Comments: General: Appears in no acute distress. HEAD: Normal with no signs of head trauma. EYES: PERRLA, EOMI, conjunctiva normal, no discharge. Pupils are 3 mm and equal bilaterally. ENT: Hearing grossly intact, normal oropharynx. RESPIRATORY: Clear breath sounds bilaterally. No wheezes, rales, or rhonchi. C/V: Regular rate and rhythm. S1 and S2 auscultated, no edema, peripheral pulses 2+ and intact throughout ABD: Abd is soft, nontender, nondistended EXT: Normal range of motion, no obvious deformity SKIN: No rashes or lesions observed on exposed skin. NEURO: Alert and oriented x 4. Cranial nerves II through XII intact. NIH is 0. Patient does have some weakness of bilateral upper and lower extremities. Diffuse weakness. No sensory deficits. Limitations: physical limitation Course Vital Signs 11/15/23 11/15/23 11/15/23 00:19 02:38 03:00 Temperature 98.0 F Pulse Rate 90 86 87 Respiratory 18 18 18 Rate Blood Pressure 135/89 144/69 156/83 O2 Sat by Pulse 98 93 L 96 Oximetry Medical Decision Making - Medical Decision Making Was pt. sent in by a medical professional or institution (ILENE [place], NAIL POLISH BRUSH MACHINE FEEDER, urgent care, hospital, or alf...) When possible be specific @ -No Did you speak to anyone other than the patient for history (EMS, parent, family, police, friend...)? What history was obtained from this source @ -No Did you review nursing and triage notes (agree or disagree)? Why? @ -I reviewed and agree with nursing and triage notes Were old charts reviewed (outside hosp., previous admission, EMS record, old EKG, old radiological studies, urgent care reports/EKG's, alf records)? Report findings @ -No old charts were reviewed Differential Diagnosis (chest pain, altered mental status, abdominal pain women, abdominal pain men, vaginal bleeding, weakness, fever, dyspnea, syncope, he adache, dizziness, GI bleed, back pain, seizure, CVA, palpatations, mental health, musculoskeletal)? @ -Differential Weakness: Hypoglycemia, shock, sepsis, hyponatremia, anemia, infection, [place], ETOH, adverse medicine reaction, overdose, stroke, this is not meant to be an all-inclusive list. EKG interpreted by me (3pts min.). @ -As above X-rays interpreted by me (1pt min.). @ -Chest x-ray reveals no obvious acute cardiopulmonary process. CT interpreted by me (1pt min.). @ -Brain CT reveals no obvious acute intracranial process. U/S interpreted by me (1pt. min.). @ -None done What testing was considered but not performed or refused? (CT, X-rays, U/S, labs)? Why? @ -None What meds were considered but not given or refused? Why? @ -None Did you discuss the management of the patient with other professionals (professionals i.e. , PA, NAIL POLISH BRUSH MACHINE FEEDER, lab, RT, psych nurse, secondary social studies teacher, lead electrical engineer, t eacher, homicide squad commanding officer, marketing information manager)? Give summary @ -Spoke with the admitting physician, Dr. Ibarra who accepted the admission. Was smoking cessation discussed for >3mins.? @ -No Was critical care preformed (if so, how long)? @ -No Were there social determinants of health that impacted care today? How? (Homelessness, low income, unemployed, alcoholism, drug addiction, transportation, low edu. Level, literacy, decrease access to med. care, nursing home, rehab)? @ -No Was there de-escalation of care discussed even if they declined (Discuss DNR or withdrawal of care, Hospice)? DNR status @ -No What co-morbidities impacted this encounter? (DM, HTN, Smoking, COPD, CAD, Cancer, CVA, ARF, Chemo, Hep., AIDS, mental health diagnosis, sleep apnea, morbid obesity)? @ -None Was patient admitted / discharged? Hospital course, mention meds given and route, prescriptions, significant lab abnormalities, going to OR and other pertinent info. @ -Based on the patient's presentation and physical exam, presents emergency department with generalized weakness. Also for placement. Patient currently has no obvious acute complaints but generalized body weakness. We will obtain basic workup as well as CT brain. She was in agreement this plan. Vital signs within acceptable limits. She will be symptomatically treated with IV fluids at this time. Chest x-ray revealed no obvious acute process. CT brain unremarkable. EKG within acceptable limits. Laboratory studies also unremarkable except for h ypomagnesemia which will be replenished. Urinalysis still pending but I updated the patient. We will admit the patient for possible placement evaluation as well as the hypomagnesemia and generalized weakness. She was in agreement this plan. I spoke with the admitting physician, Dr. Ibarra who accepted the admission. Undiagnosed new problem with uncertain prognosis? @ -No Drug Therapy requiring intensive monitoring for toxicity (Heparin, Nitro, Insulin, Cardizem)? @ -No Were any procedures done? @ -No Diagnosis/symptom? @ -Weakness, hypomagnesemia, debility, placement Acute, or Chronic, or Acute on Chronic? @ -Acute Uncomplicated (without systemic symptoms) or Complicated (systemic symptoms)? @ -Complicated Side effects of treatment? @ -No Exacerbation, Progression, or Severe Exacerbation? @ -No Poses a threat to life or bodily function? How? (Chest pain, USA, [place], pneumonia, PE, COPD, DKA, ARF, appy, cholecystitis, CVA, Diverticulitis, Homicidal, Suicidal, threat to staff... and all critical care pts) @ -Yes - Lab Data Result diagrams: 11/15/23 01:52 11/15/23 01:52 Lab Results 11/15/23 11/15/23 11/15/23 Range/Units 01:52 01:52 01:52 WBC 9.0 (3.8-10.6) k/uL RBC 4.16 (3.80-5.40) m/uL Hgb 13.4 (11.4-16.0) gm/dL Hct 40.4 (34.0-46.0) % MCV 97.1 (80.0-100.0) fL MCH 32.1 (25.0-35.0) pg MCHC 33.1 (31.0-37.0) g/dL RDW 13.0 (11.5-15.5) % Plt Count 277 (150-450) k/uL MPV 7.8 Neutrophils % 60 % Lymphocytes % 29 % Monocytes % 6 % Eosinophils % 2 % Basophils % 0 % Neutrophils # 5.4 (1.3-7.7) k/uL Lymphocytes # 2.6 (1.0-4.8) k/uL Monocytes # 0.5 (0-1.0) k/uL Eosinophils # 0.2 (0-0.7) k/uL Basophils # 0.0 (0-0.2) k/uL PT 10.7 (10.0-12.5) sec INR 1.0 (<1.2) APTT 23.7 (22.0-30.0) sec Sodium 137 (137-145) mmol/L Potassium 4.2 (3.5-5.1) mmol/L Chloride 104 (98-107) mmol/L Carbon Dioxide 27 (22-30) mmol/L Anion Gap 6 mmol/L BUN 16 (7-17) mg/dL Creatinine 1.09 H (0.52-1.04) mg/dL Est GFR (CKD-EPI)AfAm 57 (>60 ml/min/1.73 sqM) Est GFR (CKD-EPI)NonAf 50 (>60 ml/min/1.73 sqM) Glucose 151 H (74-99) mg/dL Calcium 8.7 (8.4-10.2) mg/dL Magnesium 1.1 L (1.6-2.3) mg/dL Total Bilirubin 0.4 (0.2-1.3) mg/dL AST 18 (14-36) U/L ALT 10 (4-34) U/L Alkaline Phosphatase 74 (38-126) U/L Total Protein 6.1 L (6.3-8.2) g/dL Albumin 3.3 L (3.5-5.0) g/dL Influenza Type A (PCR) (Not Detectd) Influenza Type B (PCR) (Not Detectd) RSV (PCR) (Not Detectd) SARS-CoV-2 (PCR) (Not Detectd) 11/15/23 Range/Units 01:52 WBC (3.8-10.6) k/uL RBC (3.80-5.40) m/uL Hgb (11.4-16.0) gm/dL Hct (34.0-46.0) % MCV (80.0-100.0) fL MCH (25.0-35.0) pg MCHC (31.0-37.0) g/dL RDW (11.5-15.5) % Plt Count (150-450) k/uL MPV Neutrophils % % Lymphocytes % % Monocytes % % Eosinophils % % Basophils % % Neutrophils # (1.3-7.7) k/uL Lymphocytes # (1.0-4.8) k/uL Monocytes # (0-1.0) k/uL Eosinophils # (0-0.7) k/uL Basophils # (0-0.2) k/uL PT (10.0-12.5) sec INR (<1.2) APTT (22.0-30.0) sec Sodium (137-145) mmol/L Potassium (3.5-5.1) mmol/L Chloride (98-107) mmol/L Carbon Dioxide (22-30) mmol/L Anion Gap mmol/L BUN (7-17) mg/dL Creatinine (0.52-1.04) mg/dL Est GFR (CKD-EPI)AfAm (>60 ml/min/1.73 sqM) Est GFR (CKD-EPI)NonAf (>60 ml/min/1.73 sqM) Glucose (74-99) mg/dL Calcium (8.4-10.2) mg/dL Magnesium (1.6-2.3) mg/dL Total Bilirubin (0.2-1.3) mg/dL AST (14-36) U/L ALT (4-34) U/L Alkaline Phosphatase (38-126) U/L Total Protein (6.3-8.2) g/dL Albumin (3.5-5.0) g/dL Influenza Type A (PCR) Not Detected (Not Detectd) Influenza Type B (PCR) Not Detected (Not Detectd) RSV (PCR) Not Detected (Not Detectd) SARS-CoV-2 (PCR) Not Detected (Not Detectd) - EKG Data -: EKG Interpreted by Me EKG Comments: 12-lead Electrocardiogram Interpretation Note EKG was reviewed and interpreted by myself. 12-lead ECG performed at 2257 is interpreted by me as revealing normal sinus rhythm at a rate of 98 beats per minute. [place] is normal. [place] interval is 160 ms, QRS duration is 77 ms, QTc is 392 ms.. There were no ST or T wave abnormalities to suggest myocardial ischemia or injury. R wave progression across the precordium was satisfactory. By my interpretation this EKG is non-diagnostic for acute ischemia. Disposition Clinical Impression: Debility, Weakness, Hypomagnesemia Disposition: ADMITTED IP TO THIS HOSP Condition: Stable Time of Disposition: 02:51
[2023-11-15] MEDS: MAGNESIUM SULFATE-D5W PMX 1 GM in DEXTROSE/WATER 1 100ML.BAG IVPB ONE (03:35)
[2023-11-15] MEDS: HEPARIN SODIUM,PORCINE 5,000 UNIT/ML 1 ML VIAL SQ SCH (11:09)
[2023-11-15] MEDS ORDERED: traZODone HCL 100 MG TAB PO PRN (13:42)
[2023-11-15] MEDS ORDERED: LACTULOSE 20 GM/30 ML CUP PO PRN (13:56)
[2023-11-15] MEDS ORDERED: ALPRAZolam 0.25 MG TAB PO PRN (13:56)
[2023-11-15] MEDS ORDERED: CALCIUM CARBONATE 500 MG CHEWABLE PO PRN (13:56)
[2023-11-15] MEDS ORDERED: MELATONIN 3 MG TABLET PO PRN (13:56)
[2023-11-15] MEDS ORDERED: ONDANSETRON 4 MG/2 ML VIAL IVP PRN (13:56)
[2023-11-15] MEDS: ASPIRIN 81 MG PO SCH (15:04)
--- NOTE | 2023-11-15 16:46 | P.HPIM ---
History of Present Illness H&P Date: 11/15/23 Chief Complaint: Weakness in the legs This is a pleasant 77-year-old patient, follows Dr. Delmy Morris. baseline - uses a walker. Patient normally able to use a walker and get about. Yesterday felt really weak in the legs. No pain. Does have some lower back pain she said intermittently. No change in appetite or bowel pattern. Patient was sometimes been having nausea vomiting. Sometimes specially after taking her medications. Patient also takes metformin. History is obtained by the patient and the at the bedside. Review of systems: GEN.: Tired, EYES: None HEENT: None NECK: None RESPIRATORY: None CARDIOVASCULAR: None GASTROINTESTINAL: None GENITOURINARY: Urinary incontinence, MUSCULOSKELETAL: Joint pains LYMPHATICS: None HEMATOLOGICAL: None PSYCHIATRY: Bit forgetful NEUROLOGICAL: Uses a walker Past medical history to include: Diabetes, arthritis, Baseline gait dysfunction Social history: Does not smoke or drink alcohol. . Uses a walker Physical examination: VITAL SIGNS: 97.3, 88, 18, 139 x 72, 94% room air GENERAL: BMI 31.4, reclining bed awake a bit tired EYES: Pupils equal. Conjunctiva normal. HEENT: External appearance of nose and ears normal, oral cavity grossly normal. NECK: JVD not raised; masses not palpable. HEART: First and second heart sounds are normal; no edema. LUNGS: Respiratory rate normal; clear to auscultation. ABDOMEN: Soft, nontender, liver spleen not palpable, no masses palpable. PSYCH: + Questions mood affect a bit tired. MUSCULOSKELETAL:No Clubbing/cyanosis;muscles-grossly intact. OA NEUROLOGICAL: Cranial nerves grossly intact; no facial asymmetry, power in the lower extremity 2/5. Sensation grossly preserved INVESTIGATIONS, reviewed in the clinical context: November 15, 2023: White count 9 hemoglobin 13.4 platelets 277 sodium 137 potassium 4.2 BUN 16 creatinine 1.09 Influenza type A, type B, RSV, COVID-19: Not detected EKG tracing personally reviewed by me-normal sinus rhythm. Chest x-ray film personally reviewed by me-possible atelectasis CT brain: Unremarkable Investigations from January 2023 MRI brain without contrast: Chronic changes. No stroke 2-D echocardiogram: EF 55%. Carotid Doppler: No stenosis CT angiogram of the head and neck: Severe stenosis proximal right internal carotid artery. Strongly suspected. Creatinine 1.25 [January 2023] Assessment and plan: -Acute bilateral lower extremity paresis. Patient has had chronic lower back pain. Has clinical evidence of myopathy. Denies any acute lower back pain. Sensation well-preserved. Ordered lumbosacral x-ray. PT OT -Persistent f intermittent nausea vomiting. For now discontinue metformin. Patient may have an element of diabetic gastroparesis. Will try Reglan. -Chronic right internal carotid artery severe stenosis suspected. Follow-up with vascular outpatient -Diabetes mellitus type 2, uncontrolled with hyperglycemia Hold metformin Patient was supposed to start on Mounjaro-hold the same Levemir 20 units subcu at bedtime. Sliding scale with insulin -Probable chronic kidney disease stage III from diabetic nephropathy and hypertensive nephrosclerosis Follow renal function Creatinine was 1.25 in January 2023 -Obesity BMI 31.4 Weight loss measures -Gait dysfunction, baseline uses walker PT OT -DNR Care was discussed with the patient, and the and the son at the bedside. Advance care planning [November 15, 2023] This was discussed with the patient. and son are present. Patient's overall condition was discussed. Patient decides to proceed with DNR CODE STATUS. Questions were answered. Time spent about 25 minutes. Past Medical History Past Medical History: Diabetes Mellitus History of Any Multi-Drug Resistant Organisms: MRSA Date of last positivie culture/infection: 04/13/23 MDRO Source:: Right Heel Past Surgical History: No Surgical Hx Reported Past Psychological History: No Psychological Hx Reported Smoking Status: Never smoker Past Alcohol Use History: None Reported Past Drug Use History: None Reported Medications and Allergies Home Medications Medication Instructions Recorded Confirmed Type Aspirin 81 mg PO DAILY tab 03/24/23 11/15/23 Rx Tirzepatide [Mounjaro] 2.5 mg SQ DIRECTED 11/15/23 11/15/23 History Unknown Insulin 25 units SQ HS 11/15/23 11/15/23 History buPROPion [Wellbutrin] 100 mg PO BID 11/15/23 11/15/23 History metFORMIN HCL [Glucophage] 500 mg PO BID 11/15/23 11/15/23 History traZODone HCL [Desyrel] 100 mg PO HS PRN 11/15/23 11/15/23 History Allergies Allergy/AdvReac Type Severity Reaction Status Date / Time No Known Allergies Allergy Verified 11/15/23 12:21 Physical Exam Vitals: Vital Signs Temp Pulse Resp BP Pulse Ox 11/15/23 11:00 97.3 F L 88 18 139/72 94 L 11/15/23 06:00 82 16 135/75 95 11/15/23 04:00 86 18 142/71 93 L 11/15/23 03:00 87 18 156/83 96 11/15/23 02:38 86 18 144/69 93 L 11/15/23 00:19 98.0 F 90 18 135/89 98 Intake and Output 11/14/23 11/15/23 11/15/23 22:59 06:59 14:59 Other: Weight 80.286 kg Results CBC & Chem 7: 11/15/23 01:52 11/15/23 01:52 Labs: Abnormal Lab Results - Last 24 Hours (Table) 11/15/23 Range/Units 01:52 Creatinine 1.09 H (0.52-1.04) mg/dL Glucose 151 H (74-99) mg/dL Magnesium 1.1 L (1.6-2.3) mg/dL Total Protein 6.1 L (6.3-8.2) g/dL Albumin 3.3 L (3.5-5.0) g/dL
[2023-11-15] MEDS: METOCLOPRAMIDE 10 MG TAB PO SCH (17:43)
[2023-11-15 20:28] LABS: Glucose,Whole Blood 196 mg/dL (70-110)
[2023-11-15] MEDS: buPROPion 100 MG TAB PO SCH (20:39)
[2023-11-15] MEDS: INSULIN DETEMIR (LEVEMIR) 100 UNIT/ML SYR SQ SCH (20:39)
[2023-11-15] MEDS ORDERED: FAMOTIDINE 20 MG TAB PO SCH (21:00)
--- NOTE | 2023-11-16 08:17 | XR ---
EXAMINATION TYPE: XR lumbar spine 2 or 3V DATE OF EXAM: 11/15/2023 2:51 PM CLINICAL INDICATION:Female, 77 years old with history of LE weakneess/some lower back pain; [facility] COMPARISON: None TECHNIQUE: XR lumbar spine 2 or 3V - Frontal, lateral and coned down L5-S1 lateral views of the lumba r spine. FINDINGS: There are 5 lumbar-type vertebral bodies. Mineralization appears somewhat reduced. No osseous destruc tive process seen. Vertebral body heights are generally preserved. There is moderate multilevel degen erative disc disease and facet arthrosis. Overall mild levocurvature of the lumbar spine. There appea rs to be slight anterolisthesis T12 on L1 and retrolisthesis L1 on L2. Grade 1 approaching grade 2 an terolisthesis of L4 on L5 measures 12.4 mm. Degenerative changes of the SI joints with partial fusion. Moderate calcification of the abdominal aorta is present without suggestion of AAA. IMPRESSION: 1. No radiographic evidence of acute compression fracture. 2. Moderate multilevel disc degeneration. Grade 1, approaching grade 2, anterolisthesis L4 on L5.
[2023-11-16 08:32] LABS: Basophils # (A) 0.06 X 10*3/uL (0.00-0.10); Basophils % (A) 0.8 %; Eosinophils # (A) 0.27 X 10*3/uL (0.04-0.35); Eosinophils % (A) 3.5 %; HCT 39.4 % (37.2-46.3); HGB 12.6 g/dL (12.0-15.0); Lymphocytes # (A) 3.62 X 10*3/uL (0.90-5.00); Lymphocytes % (A) 46.6 %; MCH 31.3 pg (27.0-32.0); MCV 97.8 FL (80.0-97.0); Mean Platelet Volume 10.6 FL (9.5-12.2); Monocytes # (A) 0.69 X 10*3/uL (0.20-1.00); Monocytes % (A) 8.9 %; NRBC Per 100 WBC 0 X 10*3/uL (0.00-0.01); Neutrophils % (A) 39.8 %; Platelet Count 267 X 10*3/uL (140-440); RBC 4.03 X 10*6/uL (4.10-5.20); RDW 13.1 % (11.5-14.5); WBC 7.77 X 10*3/uL (4.50-10.00)
[2023-11-16] MEDS: FAMOTIDINE 20 MG TAB PO SCH (08:53)
[2023-11-16 09:06] LABS: BUN/Creat Ratio 12.64 Ratio (12.00-20.00); Blood Urea Nitrogen 13.9 mg/dL (9.0-27.0); Calcium 8.8 mg/dL (8.7-10.3); Carbon Dioxide 23.8 mmol/L (21.6-31.8); Chloride 106 mmol/L (96-109); Glucose 155 mg/dL (70-110); Magnesium 1.5 mg/dL (1.5-2.4); Sodium 141 mmol/L (135-145)
[2023-11-16 11:21] LABS: Glucose,Whole Blood 119 mg/dL (70-110)
[2023-11-16 11:23] LABS: Appearance,Urine Clear (Clear); Bacteria,Urine Few /hpf; Bilirubin,Urine Negative (Negative); Blood,Urine Negative (Negative); Color,Urine Colorless; Glucose,Urine (UA) Negative (Negative); Ketones,Urine Negative (Negative); Leukocyte Esterase,Urine Moderate (Negative); Nitrite,Urine Positive (Negative); Protein,Urine Negative (Negative); RBC,Urine 1 /hpf (0-5); Specific Gravity,Urine 1.012 (1.001-1.035); Squamous Epithelial Cell,Urine 2 /hpf (0-4); Urobilinogen,Urine <2.0 mg/dL (<2.0); WBC,Urine 8 /hpf (0-5)
--- NOTE | 2023-11-16 15:25 | P.PN ---
Progress Note - Text Progress Note Date: 11/16/23 Chief Complaint: Weakness in the legs This is a pleasant 77-year-old patient, follows Dr. Delmy Morris. baseline - uses a walker. Patient normally able to use a walker and get about. Yesterday felt really weak in the legs. No pain. Does have some lower back pain she said intermittently. No change in appetite or bowel pattern. Patient was sometimes been having nausea vomiting. Sometimes specially after taking her medications. Patient also takes metformin. History is obtained by the patient and the at the bedside. November 16, 2023: Sitting up in bed. Legs feel less weak today. Seen by physical therapy. Took about 6 steps with a walker. Recommending subacute rehab. Lower back pain no different than before. X-ray showing chronic changes. No significant pain. Discussed with patient . Patient had all of breakfast and lunch. Will cut back Reglan to 5 mg AC 3 times daily. Active Medications Acetaminophen (Acetaminophen Tab 325 Mg Tab) 650 mg PO Q6HR PRN PRN Reason: Mild Pain or Fever > 100.5 Alprazolam (Alprazolam 0.25 Mg Tab) 0.25 mg PO Q6HR PRN PRN Reason: Anxiety Aspirin (Aspirin 81 Mg) 81 mg PO DAILY [facility] Last Admin: 11/16/23 08:53 Dose: 81 mg Bupropion HCl (Bupropion 100 Mg Tab) 100 mg PO BID [facility] Last Admin: 11/16/23 08:54 Dose: 100 mg Calcium Carbonate/Glycine (Calcium Carbonate 500 Mg Chewable) 1,000 mg PO Q4HR PRN PRN Reason: Dyspepsia Famotidine (Famotidine 20 Mg Tab) 20 mg PO DAILY [facility] Last Admin: 11/16/23 08:53 Dose: 20 mg Heparin Sodium (Porcine) (Heparin Sodium,Porcine 5,000 Unit/Ml 1 Ml Vial) 5,000 unit SQ Q12HR [facility] Last Admin: 11/16/23 08:54 Dose: 5,000 unit Insulin Detemir (Insulin Detemir (Levemir) 100 Unit/Ml Syr) 20 unit SQ HS [facility] Last Admin: 11/15/23 20:39 Dose: 20 unit Lactulose (Lactulose 20 Gm/30 Ml Cup) 20 gm PO DAILY PRN PRN Reason: Constipation Melatonin (Melatonin 3 Mg Tablet) 3 mg PO HS PRN PRN Reason: Insomnia Naloxone HCl (Naloxone 0.4 Mg/Ml 1 Ml Vial) 0.2 mg IV Q2M PRN PRN Reason: Opioid Reversal Ondansetron HCl (Ondansetron 4 Mg/2 Ml Vial) 4 mg IVP Q8HR PRN PRN Reason: Nausea And Vomiting Trazodone HCl (Trazodone Hcl 100 Mg Tab) 100 mg PO HS PRN PRN Reason: Insomnia Past medical history to include: Diabetes, arthritis, Baseline gait dysfunction Social history: Does not smoke or drink alcohol. . Uses a walker Physical examination: VITAL SIGNS: 98.1, 79, 16, 130 Yordy 82, 97% room air GENERAL: Eating lunch, comfortable EYES: Pupils equal. Conjunctiva normal. HEENT: External appearance of nose and ears normal, oral cavity grossly normal. NECK: JVD not raised; masses not palpable. HEART: First and second heart sounds are normal; no edema. LUNGS: Respiratory rate normal; clear to auscultation. ABDOMEN: Soft, nontender, liver spleen not palpable, no masses palpable. PSYCH: AOx3, mood affect normal MUSCULOSKELETAL:No Clubbing/cyanosis;muscles-grossly intact. OA NEUROLOGICAL: Cranial nerves grossly intact; no facial asymmetry, power in the lower extremity 2/5. Sensation grossly preserved INVESTIGATIONS, reviewed in the clinical context: November 15: White count 7.7 hemoglobin 12.6 potassium 4 creatinine 1.1 November 15, 2023: White count 9 hemoglobin 13.4 platelets 277 sodium 137 potassium 4.2 BUN 16 creatinine 1.09 Influenza type A, type B, RSV, COVID-19: Not detected EKG tracing personally reviewed by me-normal sinus rhythm. Chest x-ray film personally reviewed by me-possible atelectasis CT brain: Unremarkable Investigations from January 2023 MRI brain without contrast: Chronic changes. No stroke 2-D echocardiogram: EF 55%. Carotid Doppler: No stenosis CT angiogram of the head and neck: Severe stenosis proximal right internal carotid artery. Strongly suspected. Creatinine 1.25 [January 2023] Assessment and plan: -Acute bilateral lower extremity paresis.: Improving chronic lower back pain. Has clinical evidence of myopathy. Denies any acute lower back pain. Sensation well-preserved. Lumbosacral x-ray shows DJD changes. PT OT -Proximal myopathy lower extremity PT OT -Persistent f intermittent nausea vomiting.: Possible diabetic gastroparesis discontinue metformin. Responding to Reglan. Started on 10 mg AC 3 times daily. Cut back to 5 mg AC 3 times daily. -Chronic right internal carotid artery severe stenosis suspected. Follow-up with vascular outpatient -Diabetes mellitus type 2, uncontrolled with hyperglycemia Hold metformin Patient was supposed to start on Mounjaro-hold the same Increase Levemir 24 units subcu at bedtime. Sliding scale with insulin -Probable chronic kidney disease stage III from diabetic nephropathy and hypertensive nephrosclerosis Follow renal function Creatinine was 1.25 in January 2023 -Obesity BMI 31.4 Weight loss measures -Gait dysfunction, baseline uses walker PT OT, following -DNR Advance care planning [November 15, 2023] This was discussed with the patient. and son are present. Patient's overall condition was discussed. Patient decides to proceed with DNR CODE STATUS. Questions were answered. Time spent about 25 minutes. Seen by physical therapy. recommending subacute rehab. Increase Levemir to 25 to subcu nightly. Cut back Reglan to 5 mg AC 3 times daily. Past Medical History Past Medical History: Diabetes Mellitus History of Any Multi-Drug Resistant Organisms: MRSA Date of last positivie culture/infection: 04/13/23 MDRO Source:: Right Heel Past Surgical History: No Surgical Hx Reported Past Psychological History: No Psychological Hx Reported Smoking Status: Never smoker Past Alcohol Use History: None Reported Past Drug Use History: None Reported
[2023-11-16 16:20] LABS: Glucose,Whole Blood 164 mg/dL (70-110)
[2023-11-16] MEDS: METOCLOPRAMIDE 5 MG TAB PO SCH (17:26)
[2023-11-16 20:02] LABS: Glucose,Whole Blood 237 mg/dL (70-110)
[2023-11-16] MEDS: INSULIN DETEMIR (LEVEMIR) 100 UNIT/ML SYR SQ SCH (20:25)
[2023-11-17 06:04] LABS: Glucose,Whole Blood 107 mg/dL (70-110)
[2023-11-17 08:05] VITALS: RESP 17
[2023-11-17 11:32] LABS: Glucose,Whole Blood 312 mg/dL (70-110)
--- NOTE | 2023-11-17 13:37 | P.DS ---
Providers Date of admission: 11/15/23 03:02 Expected date of discharge: 11/17/23 Attending physician: Trevor Ibarra Primary care physician: Delmy Morris [facility] Course: Chief Complaint: Weakness in the legs This is a pleasant 77-year-old patient, follows Dr. Delmy Morris. baseline - uses a walker. Patient normally able to use a walker and get about. Yesterday felt really weak in the legs. No pain. Does have some lower back pain she said intermittently. No change in appetite or bowel pattern. Patient was sometimes been having nausea vomiting. Sometimes specially after taking her medications. Patient also takes metformin. History is obtained by the patient and the at the bedside. November 16, 2023: Sitting up in bed. Legs feel less weak today. Seen by physical therapy. Took about 6 steps with a walker. Recommending subacute rehab. Lower back pain no different than before. X-ray showing chronic changes. No significant pain. Discussed with patient . Patient had all of breakfast and lunch. Will cut back Reglan to 5 mg AC 3 times daily. November 17, 2023: Feeling better. Discussed with patient . Accepted at rehab at [facility]. Questions answered Past medical history to include: Diabetes, arthritis, Baseline gait dysfunction Social history: Does not smoke or drink alcohol. . Uses a walker Physical examination: VITAL SIGNS: 97.1, 81, 17, 144/72, 96% room air GENERAL: Sitting up in bed, comfortable EYES: Pupils equal. Conjunctiva normal. HEENT: External appearance of nose and ears normal, oral cavity grossly normal. NECK: JVD not raised; masses not palpable. HEART: First and second heart sounds are normal; no edema. LUNGS: Respiratory rate normal; clear to auscultation. ABDOMEN: Soft, nontender, liver spleen not palpable, no masses palpable. PSYCH: AOx3, mood affect normal MUSCULOSKELETAL:No Clubbing/cyanosis;muscles-grossly intact. OA NEUROLOGICAL: Cranial nerves grossly intact; no facial asymmetry, power in the lower extremity 2/5. Sensation grossly preserved INVESTIGATIONS, reviewed in the clinical context: November 15: White count 7.7 hemoglobin 12.6 potassium 4 creatinine 1.1 November 15, 2023: White count 9 hemoglobin 13.4 platelets 277 sodium 137 potassium 4.2 BUN 16 creatinine 1.09 Influenza type A, type B, RSV, COVID-19: Not detected EKG tracing personally reviewed by me-normal sinus rhythm. Chest x-ray film personally reviewed by me-possible atelectasis CT brain: Unremarkable Investigations from January 2023 MRI brain without contrast: Chronic changes. No stroke 2-D echocardiogram: EF 55%. Carotid Doppler: No stenosis CT angiogram of the head and neck: Severe stenosis proximal right internal carotid artery. Strongly suspected. Creatinine 1.25 [January 2023] Assessment and plan: -Acute bilateral lower extremity paresis.: Improving chronic lower back pain. Has clinical evidence of myopathy. Denies any acute lower back pain. Sensation well-preserved. Lumbosacral x-ray shows DJD changes. PT OT -Proximal myopathy lower extremity PT OT -Persistent f intermittent nausea vomiting.: Possible diabetic gastroparesis discontinue metformin. Eating well with no nausea vomiting. Changed to Reglan 5 mg as needed -Chronic right internal carotid artery severe stenosis suspected. Was seen by vascular outpatient -Diabetes mellitus type 2, uncontrolled with hyperglycemia Metformin discontinued Patient was supposed to start on Mounjaro-hold the same Lantus 25 units subcu at bedtime. Sliding scale with insulin -Probable chronic kidney disease stage III from diabetic nephropathy and hypertensive nephrosclerosis Follow renal function Creatinine was 1.25 in January 2023 -Obesity BMI 31.4 Weight loss measures -Gait dysfunction, baseline uses walker PT OT, following -DNR Advance care planning [November 15, 2023] This was discussed with the patient. and son are present. Patient's overall condition was discussed. Patient decides to proceed with DNR CODE STATUS. Questions were answered. Time spent about 25 minutes. Disposition: Subacute rehab at [facility] Past Medical History Past Medical History: Diabetes Mellitus History of Any Multi-Drug Resistant Organisms: MRSA Date of last positivie culture/infection: 04/13/23 MDRO Source:: Right Heel Past Surgical History: No Surgical Hx Reported Past Psychological History: No Psychological Hx Reported Smoking Status: Never smoker Past Alcohol Use History: None Reported Past Drug Use History: None Reported Plan - Discharge Summary New Discharge Prescriptions: New Melatonin 3 mg PO HS PRN tab PRN Reason: Insomnia Famotidine [Pepcid] 20 mg PO DAILY tab Metoclopramide [Reglan] 5 mg PO AC-TID PRN #10 tab PRN Reason: Vomiting Continue Aspirin 81 mg PO DAILY tab traZODone HCL [Desyrel] 100 mg PO HS PRN PRN Reason: Insomnia buPROPion [Wellbutrin] 100 mg PO BID Insulin Glargine [Lantus Vial] 25 unit SQ HS Discontinued metFORMIN HCL [Glucophage] 500 mg PO BID Tirzepatide [Mounjaro] 2.5 mg SQ DIRECTED Discharge Medication List Aspirin 81 mg PO DAILY tab 03/24/23 [Rx] buPROPion [Wellbutrin] 100 mg PO BID 11/15/23 [History] traZODone HCL [Desyrel] 100 mg PO HS PRN 11/15/23 [History] Insulin Glargine [Lantus Vial] 25 unit SQ HS 11/16/23 [History] Famotidine [Pepcid] 20 mg PO DAILY tab 11/17/23 [Rx] Melatonin 3 mg PO HS PRN tab 11/17/23 [Rx] Metoclopramide [Reglan] 5 mg PO AC-TID PRN #10 tab 11/17/23 [Rx] Follow up Appointment(s)/Referral(s): Delmy Morris MD [Primary Care Provider] - 1-2 days
[2023-11-17 15:21] VITALS: BP 125/65; PULSE 96; TEMP 97.4
== END 2023-11-17 15:40 ==
LOC: EC 22:34 → 1SOBS 11-15 03:00 → INTOOBSV 11-15 03:02 → 5NMEDONC 11-15 03:02 → UNDOADMOB 11-15 03:02 → 5NMEDONC 11-16 06:18 → 1SOBS 11-16 06:18 → UNDOADMOB 11-17 11:22 → 1SOBS 11-17 11:22 → 5NMEDONC 11-17 11:22 → OBSVTOIN 11-17 11:22 → INTOOBSV 11-17 11:22 → UNDODISOB 11-17 15:40
PROVIDERS: ADMIT Hospitalist; ATTEND Hospitalist
DX: G82.20 Paraplegia, unspecified (principal); G89.29 Other chronic pain; M54.50 Low back pain, unspecified; R11.2 Nausea with vomiting, unspecified; E11.65 Type 2 diabetes mellitus with hyperglycemia; I13.10 Hypertensive heart and chronic kidney disease without heart failure, with stage 1 through stage 4 chronic kidney disease, or unspecified chronic kidney disease; N18.9 Chronic kidney disease, unspecified; E11.22 Type 2 diabetes mellitus with diabetic chronic kidney disease; R26.9 Unspecified abnormalities of gait and mobility; E66.9 Obesity, unspecified; Z68.31 Body mass index [BMI] 31.0-31.9, adult; Z66 Do not resuscitate; Z79.02 Long term (current) use of antithrombotics/antiplatelets; Z79.82 Long term (current) use of aspirin; Z79.84 Long term (current) use of oral hypoglycemic drugs; Z79.899 Other long term (current) drug therapy
CPT/HCPCS: 96361 ×5; 96372 ×3; 96365; 99285; 36415; 93005; 97162; 97166; 80053; 80048; 83735 ×2; 85025 ×2; 85610; 85730; 81001; 87636; 72100; 71046; 70450; G0378 ×3; J1644 ×3; J3475

== ENCOUNTER 2024-08-16 19:48 | Inpatient (IN) | payer MEDICARE ==
--- NOTE | 2024-08-16 20:31 | ED ---
General Adult HPI - General Chief complaint: Weakness Stated complaint: Weakness Time Seen by Provider: 08/16/24 20:02 Source: patient Mode of arrival: EMS Limitations: no limitations - History of Present Illness Initial comments: 78-year-old female presenting with chief complaint of generalized weakness. Patient reports she has been having increasing weakness for the past few weeks. She currently lives with her . States that she has been having multiple falls recently, states that she recently slid out of the bed and onto her back. She denies any head injury loss of consciousness or use of blood thinners. She notes of breath that has been ongoing for "a while". Denies chest pain. Denies abdominal pain. Some nausea. Complains of some right leg pain. No fever. No cough congestion or sore throat. - Related Data Home Medications Medication Instructions Recorded Confirmed buPROPion [Wellbutrin] 100 mg PO BID 11/15/23 08/17/24 Previous Rx's Medication Instructions Recorded Acetaminophen Tab [Tylenol] 650 mg PO Q6HR PRN tab 08/18/24 INSULIN LISPRO (HumaLOG) [HumaLOG] 0 unit SQ ACHS each 08/18/24 Insulin Glargine (Lantus) [Lantus 25 unit SQ HS #0 08/18/24 Vial] Allergies Allergy/AdvReac Type Severity Reaction Status Date / Time No Known Allergies Allergy Verified 08/17/24 10:45 Review of Systems ROS Statement: Those systems with pertinent positive or pertinent negative responses have been documented in the HPI. ROS Other: All systems not noted in ROS Statement are negative. Past Medical History Past Medical History: Diabetes Mellitus History of Any Multi-Drug Resistant Organisms: MRSA Date of last positivie culture/infection: 04/13/23 MDRO Source:: Right Heel Past Surgical History: No Surgical Hx Reported Past Psychological History: No Psychological Hx Reported Smoking Status: Never smoker Past Alcohol Use History: None Reported Past Drug Use History: None Reported General Exam Limitations: no limitations General appearance: alert, in no apparent distress Head exam: Present: atraumatic, normocephalic, normal inspection Eye exam: Present: normal appearance, EOMI. Absent: periorbital swelling Neck exam: Present: normal inspection. Absent: meningismus Respiratory exam: Present: normal lung sounds bilaterally. Absent: respiratory distress, wheezes, rales, rhonchi, stridor Cardiovascular Exam: Present: normal rhythm, tachycardia, normal heart sounds. Absent: systolic murmur, diastolic murmur, rubs, gallop, clicks GI/Abdominal exam: Present: soft. 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 ID interval 164. QRS 88. QT 350. QTc 412. Was pt. sent in by a medical professional or institution ([facility], [employer], urgent care, hospital, or correction...) When possible be specific @ -No Did you speak to anyone other than the patient for history (EMS, parent, family, police, friend...)? What history was obtained from this source @ -No Did you review nursing and triage notes (agree or disagree)? Why? @ -I reviewed and agree with nursing and triage notes Were old charts reviewed (outside hosp., previous admission, EMS record, old EKG, old radiological studies, urgent care reports/EKG's, correction records)? Report findings @ -No old charts were reviewed Differential Diagnosis (chest pain, altered mental status, abdominal pain women, abdominal pain men, vaginal bleeding, weakness, fever, dyspnea, syncope, headache, dizziness, GI bleed, back pain, seizure, CVA, palpatations, mental health, musculoskeletal)? @ -MDM Differential Weakness: Hypoglycemia, shock, sepsis, hyponatremia, anemia, infection, [place], ETOH, adverse medicine reaction, overdose, stroke. ... This is not meant to be an all- inclusive list EKG interpreted by me (3pts min.). @ -EKG shows sinus tachycardia ventricular rate 106. ID interval 164. QRS 88. QT 350. QTc 412. X-rays interpreted by me (1pt min.). @ -Chest x-ray shows no acute process. Tibia and fibula x-ray shows no acute fracture or dislocation CT interpreted by me (1pt min.). @ -CT shows no acute intracranial hemorrhage or midline shift. No acute fracture or dislocation evident in the cervical spine U/S interpreted by me (1pt. min.). @ -None done What testing was considered but not performed or refused? (CT, X-rays, U/S, labs)? Why? @ -None What meds were considered but not given or refused? Why? @ -None Did you discuss the management of the patient with other professionals (edelmira roque i.e. , PA, [employer] WORKER, lab, RT, psych nurse, social media director, title assistant, teacher, fisheries enforcement officer, manager auto)? Give summary @ -Spoke with Dr. Yi who accepts admission Was smoking cessation discussed for >3mins.? @ -No Was critical care preformed (if so, how long)? @ -No Were there social determinants of health that impacted care today? How? (Homelessness, low income, unemployed, alcoholism, drug addiction, transportation, low edu. Level, literacy, decrease access to med. care, residential, rehab)? @ -No Was there de-escalation of care discussed even if they declined (Discuss DNR or withdrawal of care, Hospice)? DNR status @ -I informed the patient that we must place a CODE STATUS that anyone admitted to the hospital. She informed me she would like to be a no code. Reviewing previous admissions it appears that she has elected for this option before and has completed previous documentation for this What co-morbidities impacted this encounter? (DM, HTN, Smoking, COPD, CAD, Cancer, CVA, ARF, Chemo, Hep., AIDS, mental health diagnosis, sleep apnea, morbid obesity)? @ -None Was patient admitted / discharged? Hospital course, mention meds given and route, prescriptions, significant lab abnormalities, going to OR and other pertinent info. @ -78-year-old female presenting with chief complaint of generalized weakness and recurrent falls. History and physical examination are conducted. GCS 15. Magnesium of 1.0, patient is placed on IV replacement. Urine shows positive nitrates and moderate leukocytes. Patient reports that she has not been getting up to urinate as much because of her weakness and falls and would not be surprised if she has a UTI. Treated with 1 g of Rocephin. Patient will be admitted for these conditions as well as general debility and placement in sub acute rehab. I discussed this case with my attending Dr. Abarca Undiagnosed new problem with uncertain prognosis? @ -No Drug Therapy requiring intensive monitoring for toxicity (Heparin, Nitro, Insu julius, Cardizem)? @ -No Were any procedures done? @ -No Diagnosis/symptom? @ -Hypomagnesemia, UTI, generalized weakness and debility Acute, or Chronic, or Acute on Chronic? @ -Acute Uncomplicated (without systemic symptoms) or Complicated (systemic symptoms)? @ -Complicated Side effects of treatment? @ -No Exacerbation, Progression, or Severe Exacerbation? @ -No Poses a threat to life or bodily function? How? (Chest pain, [place], [place], pneumonia, PE, COPD, DKA, ARF, appy, cholecystitis, CVA, Diverticulitis, Homicidal, Suicidal, threat to staff... and all critical care pts) @ -Yes - Lab Data Result diagrams: 08/18/24 04:04 08/18/24 04:04 Lab Results 08/16/24 08/16/24 08/16/24 Range/Units 20:12 20:12 20:12 WBC 7.6 (3.8-10.6) k/uL RBC 4.82 (3.80-5.40) m/uL Hgb 14.5 (11.4-16.0) gm/dL Hct 46.9 H (34.0-46.0) % MCV 97.5 (80.0-100.0) fL MCH 30.1 (25.0-35.0) pg MCHC 30.9 L (31.0-37.0) g/dL RDW 13.0 (11.5-15.5) % Plt Count 277 (150-450) k/uL MPV 7.9 Neutrophils % 69 % Lymphocytes % 19 % Monocytes % 7 % Eosinophils % 2 % Basophils % 0 % Neutrophils # 5.3 (1.3-7.7) k/uL Lymphocytes # 1.5 (1.0-4.8) k/uL Monocytes # 0.6 (0-1.0) k/uL Eosinophils # 0.2 (0-0.7) k/uL Basophils # 0.0 (0-0.2) k/uL PT 11.5 (10.0-12.5) sec INR 1.0 (<1.2) APTT 22.1 (22.0-30.0) sec Sodium (137-145) mmol/L Potassium (3.5-5.1) mmol/L Chloride (98-107) mmol/L Carbon Dioxide (22-30) mmol/L Anion Gap mmol/L BUN (7-17) mg/dL Creatinine (0.52-1.04) mg/dL Est GFR (CKD-EPI)AfAm (>60 ml/min/1.73 sqM) Est GFR (CKD-EPI)NonAf (>60 ml/min/1.73 sqM) Glucose (74-99) mg/dL Plasma Lactic Acid Nic (0.7-2.0) mmol/L Calcium (8.4-10.2) mg/dL Magnesium (1.6-2.3) mg/dL Total Bilirubin (0.2-1.3) mg/dL AST (14-36) U/L ALT (4-34) U/L Alkaline Phosphatase (38-126) U/L Troponin I (0.000-0.034) ng/mL Total Protein (6.3-8.2) g/dL Albumin (3.5-5.0) g/dL Urine Color Yellow Urine Appearance Clear (Clear) Urine pH 6.0 (5.0-8.0) Ur Specific [place] 1.019 (1.001-1.035) Urine Protein Trace H (Negative) Urine Glucose (UA) 4+ H (Negative) Urine Ketones Negative (Negative) Urine Blood Negative (Negative) Urine Nitrite Positive H (Negative) Urine Bilirubin Negative (Negative) Urine Urobilinogen <2.0 (<2.0) mg/dL Ur Leukocyte Esterase Moderate H (Negative) Urine RBC 2 (0-5) /hpf Urine WBC 38 H (0-5) /hpf Ur Squamous Epith Cells <1 (0-4) /hpf Urine Bacteria Many H (None) /hpf Urine Mucus Rare H (None) /hpf 08/16/24 08/16/24 08/16/24 Range/Units 20:12 20:12 20:12 WBC (3.8-10.6) k/uL RBC (3.80-5.40) m/uL Hgb (11.4-16.0) gm/dL Hct (34.0-46.0) % MCV (80.0-100.0) fL MCH (25.0-35.0) pg MCHC (31.0-37.0) g/dL RDW (11.5-15.5) % Plt Count (150-450) k/uL MPV Neutrophils % % Lymphocytes % % Monocytes % % Eosinophils % % Basophils % % Neutrophils # (1.3-7.7) k/uL Lymphocytes # (1.0-4.8) k/uL Monocytes # (0-1.0) k/uL Eosinophils # (0-0.7) k/uL Basophils # (0-0.2) k/uL PT (10.0-12.5) sec INR (<1.2) APTT (22.0-30.0) sec Sodium 136 L (137-145) mmol/L Potassium 3.8 (3.5-5.1) mmol/L Chloride 101 (98-107) mmol/L Carbon Dioxide 24 (22-30) mmol/L Anion Gap 11 mmol/L BUN 14 (7-17) mg/dL Creatinine 1.05 H (0.52-1.04) mg/dL Est GFR (CKD-EPI)AfAm 59 (>60 ml/min/1.73 sqM) Est GFR (CKD-EPI)NonAf 51 (>60 ml/min/1.73 sqM) Glucose 252 H (74-99) mg/dL Plasma Lactic Acid Nic 1.8 (0.7-2.0) mmol/L Calcium 8.7 (8.4-10.2) mg/dL Magnesium 1.0 L (1.6-2.3) mg/dL Total Bilirubin 0.7 (0.2-1.3) mg/dL AST 19 (14-36) U/L ALT 13 (4-34) U/L Alkaline Phosphatase 74 (38-126) U/L Troponin I <0.012 (0.000-0.034) ng/mL Total Protein 6.7 (6.3-8.2) g/dL Albumin 3.6 (3.5-5.0) g/dL Urine Color Urine Appearance (Clear) Urine pH (5.0-8.0) Ur Specific [place] (1.001-1.035) Urine Protein (Negative) Urine Glucose (UA) (Negative) Urine Ketones (Negative) Urine Blood (Negative) Urine Nitrite (Negative) Urine Bilirubin (Negative) Urine Urobilinogen (<2.0) mg/dL Ur Leukocyte Esterase (Negative) Urine RBC (0-5) /hpf Urine WBC (0-5) /hpf Ur Squamous Epith Cells (0-4) /hpf Urine Bacteria (None) /hpf Urine Mucus (None) /hpf Disposition Clinical Impression: Hypomagnesemia, UTI (urinary tract infection), Debility Disposition: ADMITTED IP TO THIS HOSP Condition: Fair Time of Disposition: 21:52
[2024-08-16] MEDS: SODIUM CHLORIDE 0.9% 500 ML 500 ML IV STA (20:49)
[2024-08-16 20:51] LABS: Basophils % (A) 0 %; Eosinophils # (A) 0.2 k/uL (0-0.7); Eosinophils % (A) 2 %; HCT 46.9 % (34.0-46.0); HGB 14.5 gm/dL (11.4-16.0); Lymphocytes # (A) 1.5 k/uL (1.0-4.8); Lymphocytes % (A) 19 %; MCH 30.1 pg (25.0-35.0); MCHC 30.9 g/dL (31.0-37.0); MCV 97.5 fL (80.0-100.0); Mean Platelet Volume 7.9; Monocytes # (A) 0.6 k/uL (0-1.0); Monocytes % (A) 7 %; Neutrophils # (A) 5.3 k/uL (1.3-7.7); Neutrophils % (A) 69 %; Platelet Count 277 k/uL (150-450); RBC 4.82 m/uL (3.80-5.40); WBC 7.6 k/uL (3.8-10.6)
[2024-08-16 21:07] LABS: ALT 13 U/L (4-34); AST 19 U/L (14-36); African American GFR (CKD) 59 (>60 ml/min/1.73 sqM); Albumin 3.6 g/dL (3.5-5.0); Alkaline Phosphatase 74 U/L (38-126); Anion Gap 11 mmol/L; Blood Urea Nitrogen 14 mg/dL (7-17); Calcium 8.7 mg/dL (8.4-10.2); Carbon Dioxide 24 mmol/L (22-30); Chloride 101 mmol/L (98-107); Glucose 252 mg/dL (74-99); Non-African American GFR(CKD) 51 (>60 ml/min/1.73 sqM); Potassium 3.8 mmol/L (3.5-5.1); Sodium 136 mmol/L (137-145); Total Bilirubin 0.7 mg/dL (0.2-1.3); Total Protein 6.7 g/dL (6.3-8.2)
[2024-08-16 21:14] LABS: Partial Thromboplastin Time 22.1 sec (22.0-30.0); Prothrombin Time 11.5 sec (10.0-12.5)
--- NOTE | 2024-08-16 21:23 | XR ---
EXAMINATION TYPE: XR chest 2V DATE OF EXAM: 08/16/2024 9:09 PM COMPARISON: Chest x-ray November 14, 2023 CLINICAL INDICATION: Female, 78 years old with history of Weakness, TECHNIQUE: Frontal and lateral views of the chest are obtained. FINDINGS: Persistent low lung volumes. There is no focal air space opacity, pleural effusion, or pneu mothorax seen. The cardiac silhouette size is within normal limits. The osseous structures are int act. IMPRESSION: No acute cardiopulmonary process. [facility], , 08/16/2024 9:21 PM
--- NOTE | 2024-08-16 21:25 | XR ---
EXAMINATION TYPE: XR tibia fibula RT DATE OF EXAM: 08/16/2024 9:16 PM COMPARISON: None. CLINICAL INDICATION: Female, 78 years old with history of fall, injury with pain TECHNIQUE: Two views of the right leg are obtained. FINDINGS: Demineralization is present. There is no acute fracture or dislocation seen in the right ti chio or fibula. Moderate narrowing medial tibiofemoral and patellofemoral compartment is present. Over lying soft tissues are unremarkable. IMPRESSION: There is no acute fracture or dislocation seen in the right tibia or fibula. [facility], , 08/16/2024 9:23 PM
[2024-08-16 21:27] LABS: Appearance,Urine Clear (Clear); Bacteria,Urine Many /hpf; Bilirubin,Urine Negative (Negative); Blood,Urine Negative (Negative); Color,Urine Yellow; Glucose,Urine (UA) 4+ (Negative); Ketones,Urine Negative (Negative); Leukocyte Esterase,Urine Moderate (Negative); Mucus,Urine Rare /hpf; Nitrite,Urine Positive (Negative); Protein,Urine Trace (Negative); RBC,Urine 2 /hpf (0-5); Specific Gravity,Urine 1.019 (1.001-1.035); Squamous Epithelial Cell,Urine <1 /hpf (0-4); Urobilinogen,Urine <2.0 mg/dL (<2.0); WBC,Urine 38 /hpf (0-5)
[2024-08-16] MEDS ORDERED: Magnesium Replacement Protocol 1 EACH MISC MISCELLANE PRN (21:27)
--- NOTE | 2024-08-16 21:31 | CT ---
EXAMINATION TYPE: CT brain cspine wo con DATE OF EXAM: 08/16/2024 COMPARISON: Prior CT brain November 14, 2023. Prior CT cervical spine March 11, 2023 HISTORY: Pt arrives to ER via EMS with complaints of weakness, and lethargy. Pt states she fell somet cintia within the last 7 days, pt states she slid out of bed on to the floor with assistance from her hu sband. Neck pain after injury. CT DLP: 1528.9 mGycm. Automated Exposure Control for Dose Reduction was Utilized. TECHNIQUE: CT scan of the head and cervical spine are performed without contrast. FINDINGS: There is no acute intracranial hemorrhage or midline shift identified. Mild to moderate v entricular and sulcal prominence is redemonstrated. Moderate to severe low-attenuation in the deep an d periventricular white matter is again seen. The calvarium is intact. The globes are intact and the visualized sinuses are clear. Cervical spine is visualized in its entirety from C1 through upper thoracic levels and redemonstrates scoliosis without evidence of acute fracture or dislocation. Prevertebral soft tissue appears withi n normal limits. The C1-C2 articulation is within normal limits on the coronal images. Vertebral gio dy heights are preserved. Moderate to severe disc space narrowing C4-C5 and C5-C6 levels is redemonst rated. Axial images show multilevel uncovertebral facet degenerative changes bilaterally. There is mo derate to severe calcified plaque right carotid bulb level redemonstrated. Consider imaging follow-up to further evaluate as significant stenosis was questioned on CTA neck March 20 and carotid ultr asound same date was suboptimal. Normal size thyroid gland is seen. No pneumothorax in the lung apice s is noted. IMPRESSION: 1. There is no acute fracture or dislocation evident in the cervical spine. 2. No acute intracranial hemorrhage or midline shift is seen. [facility], , 08/16/2024 9:29 PM
[2024-08-16] MEDS: cefTRIAXone IN SWFI 1,000 MG/10 ML SYRINGE IVP STA (21:55)
[2024-08-16] MEDS ORDERED: ACETAMINOPHEN TAB 325 MG TAB PO PRN (21:58)
[2024-08-16] MEDS ORDERED: HYDROcodone/APAP 5-325MG 1 EACH TAB PO PRN (21:58)
[2024-08-16] MEDS ORDERED: NALOXONE 0.4 MG/ML 1 ML VIAL IV PRN (21:58)
[2024-08-16] MEDS: MAGNESIUM SULFATE-D5W PMX 1 GM in DEXTROSE/WATER 1 100ML.BAG IVPB SCH (22:03)
[2024-08-16 23:01] LABS: Influenza A Not Detected (Not Detectd); Influenza B Not Detected (Not Detectd); RSV Not Detected (Not Detectd)
[2024-08-16] MEDS: SODIUM CHLORIDE 0.9% 1,000 ML IV SCH (23:41)
[2024-08-17] MEDS: ONDANSETRON 4 MG/2 ML VIAL IVP PRN (07:44)
[2024-08-17] MEDS ORDERED: DEXTROSE 50% SYRINGE 50 ML IVP PRN ×2 (09:14)
[2024-08-17 12:14] LABS: Glucose,Whole Blood 236 mg/dL (70-110)
[2024-08-17] MEDS: INSULIN LISPRO (HumaLOG) 100 UNIT/ML 10 mL VL SQ SCH (13:01)
[2024-08-17 17:08] LABS: Glucose,Whole Blood 244 mg/dL (70-110)
[2024-08-17 20:09] LABS: Glucose,Whole Blood 263 mg/dL (70-110)
[2024-08-17] MEDS: INSULIN GLARGINE (LANTUS) 100 UNIT/ML SYR SQ SCH (22:58)
[2024-08-17] MEDS: buPROPion 100 MG TAB PO SCH (22:58)
--- NOTE | 2024-08-18 06:20 | P.HPIM ---
History of Present Illness H&P Date: 08/17/24 This is a pleasant 78-year-old female who presented to the emergency department with increased weakness with falls being closely monitored. Patient had a mildly abnormal urinalysis in the ER although on exam when asking if patient is having any pain, burning, frequency with urination, patient denies any B symptoms. Patient was noted to have low magnesium of 1.0 and replaced now 2.0. Patient follows with Dr. Morris in the outpatient setting with a past medical history of diabetes mellitus and denies any other significant medical history. at the bedside who also uses a walker or cane reports it has been extremely difficult to help with getting up and position changes as patient has become more weak. Also noted patient vomits every day and has been chronically for years. Patient also has significant issues with constipation per . Patient being admitted with generalized weakness with falls for PT/OT therapy evaluation and social work consult. Patient and family are agreeable to [facility] and would like to [facility] for continued strength and mobility. REVIEW OF SYSTEMS: CONSTITUTIONAL: No fever, no malaise, reports of fatigue. HEENT: No recent visual problems or hearing problems. Denied any sore throat. CARDIOVASCULAR: No chest pain, orthopnea, PND, no palpitations, no syncope. PULMONARY: No shortness of breath, no cough, no hemoptysis. GASTROINTESTINAL: No diarrhea, reports constipation, reports of occasional nausea, reports of chronically vomiting every morning when getting up, no abdominal pain. NEUROLOGICAL: No headaches, no weakness, no numbness. HEMATOLOGICAL: Denies any bleeding or petechiae. GENITOURINARY: Denies any burning micturition, frequency, or urgency. MUSCULOSKELETAL/RHEUMATOLOGICAL: Denies any joint pain, swelling, or any muscle pain. Reports of generalized weakness and difficulty ambulating ENDOCRINE: Denies any polyuria or polydipsia. The rest of the 14-point review of systems is negative. PHYSICAL EXAMINATION: GENERAL: The patient is alert and oriented x3, Well developed, well nourished. Elderly appearing HEENT: Pupils are round and equally reacting to light. EOMI. No scleral icterus. No conjunctival pallor. Normocephalic, atraumatic. No pharyngeal erythema. No thyromegaly. CARDIOVASCULAR: S1 and S2 muffled PULMONARY: Diminished breath sounds bilaterally otherwise chest is clear to auscultation, no wheezing or crackles. ABDOMEN: Soft, nontender, nondistended, normoactive bowel sounds. No palpable organomegaly. MUSCULOSKELETAL: No joint swelling or deformity. EXTREMITIES: No cyanosis, clubbing, or pedal edema. Upper and lower extremities fingernails and toenails severely unkempt and extremely long NEUROLOGICAL: Gross neurological examination did not reveal any focal deficits. Diffusely weak SKIN: No rashes. Assessment: Weakness with falls and gait dysfunction Hypomagnesemia at 1.0 and replaced and at 2.0 Diabetes mellitus, type II, uncontrolled with hyperglycemia Abnormal urinalysis, likely asymptomatic bacteriuria as patient denies any pain, burning, or frequency with urination Chronic vomiting, reports when she wakes up she vomits every morning and has for years Chronic constipation GI prophylaxis DVT prophylaxis No code Plan: Patient admitted with generalized weakness for PT/OT therapy evaluation and may need ECF for continued strength and mobility. Patient has been at the bedside reports that has been progressively getting worse and more difficult to help her ambulate. Will have PT/OT therapy evaluate the patient and social work consulted in the event patient needs ECF. Patient would like to [facility] as she has been there previously Follow-up on repeat labs and replace electrolytes per protocol Patient had an abnormal urinalysis in the ER and likely asymptomatic bacteriuria. Patient did receive 1 dose of antibiotics and will not continue as patient is denying any pain, burning, or frequency Continue supportive care and antiemetics Encourage small frequent meals Recommend bowel regimen as needed as reports patient is chronically constipated. Patient did have a bowel movement yesterday Awaiting for PT/OT therapy The impression and plan of care has been dictated by Alley Arriola, Nurse Practitioner as directed. Dr. Yanni MD I have performed a history and examination and MDM of this patient, discussed the same with the dictator, and agree with the dictator's assessment and plan as written ,documented as a scribe. Based on total visit time, I have performed more than 50% of the visit. Past Medical History Past Medical History: Diabetes Mellitus History of Any Multi-Drug Resistant Organisms: MRSA Date of last positivie culture/infection: 04/13/23 MDRO Source:: Right Heel Past Surgical History: No Surgical Hx Reported Past Psychological History: No Psychological Hx Reported Smoking Status: Never smoker Past Alcohol Use History: None Reported Past Drug Use History: None Reported Medications and Allergies Home Medications Medication Instructions Recorded Confirmed Type buPROPion [Wellbutrin] 100 mg PO BID 11/15/23 08/17/24 History Insulin Glargine (Lantus) [Lantus 20 unit SQ HS 11/16/23 08/17/24 History Vial] Allergies Allergy/AdvReac Type Severity Reaction Status Date / Time No Known Allergies Allergy Verified 08/17/24 10:45 Physical Exam Vitals: Vital Signs Temp Pulse Pulse Resp BP BP Pulse Ox 08/17/24 04:00 78 12 169/99 97 08/17/24 00:01 94 12 163/86 96 08/16/24 22:09 99 18 177/104 97 08/16/24 19:54 98.5 F 102 H 18 137/111 98 Intake and Output 08/16/24 08/17/24 08/17/24 22:59 06:59 14:59 Other: # Voids 1 Weight 68.039 kg Results CBC & Chem 7: 08/16/24 20:12 08/16/24 20:12 Labs: Abnormal Lab Results - Last 24 Hours (Table) 08/16/24 08/16/24 08/16/24 Range/Units 20:12 20:12 20:12 Hct 46.9 H (34.0-46.0) % MCHC 30.9 L (31.0-37.0) g/dL Sodium 136 L (137-145) mmol/L Creatinine 1.05 H (0.52-1.04) mg/dL Glucose 252 H (74-99) mg/dL Magnesium 1.0 L (1.6-2.3) mg/dL Urine Protein Trace H (Negative) Urine Glucose (UA) 4+ H (Negative) Urine Nitrite Positive H (Negative) Ur Leukocyte Esterase Moderate H (Negative) Urine WBC 38 H (0-5) /hpf Urine Bacteria Many H (None) /hpf Urine Mucus Rare H (None) /hpf
[2024-08-18 07:26] LABS: Glucose,Whole Blood 207 mg/dL (70-110)
[2024-08-18 08:08] VITALS: RESP 15
[2024-08-18 08:47] LABS: Basophils # (A) 0.04 X 10*3/uL (0.00-0.10); Basophils % (A) 0.5 %; Eosinophils # (A) 0.35 X 10*3/uL (0.04-0.35); Eosinophils % (A) 4.5 %; HGB 12.5 g/dL (12.0-15.0); Lymphocytes # (A) 2.97 X 10*3/uL (0.90-5.00); Lymphocytes % (A) 38.4 %; MCH 30.8 pg (27.0-32.0); MCHC 32.1 g/dL (32.0-37.0); MCV 96.1 FL (80.0-97.0); Mean Platelet Volume 10.9 FL (9.5-12.2); Monocytes # (A) 0.72 X 10*3/uL (0.20-1.00); Monocytes % (A) 9.3 %; NRBC Per 100 WBC 0 X 10*3/uL (0.00-0.01); Neutrophils # (A) 3.63 X 10*3/uL (1.80-7.70); Platelet Count 267 X 10*3/uL (140-440); RBC 4.06 X 10*6/uL (4.10-5.20); RDW 13.4 % (11.5-14.5); WBC 7.73 X 10*3/uL (4.50-10.00)
[2024-08-18 08:48] LABS: BUN/Creat Ratio 10.25 Ratio (12.00-20.00); Blood Urea Nitrogen 12.3 mg/dL (9.0-27.0); Carbon Dioxide 25.8 mmol/L (21.6-31.8); Chloride 106 mmol/L (96-109); Glucose 241 mg/dL (70-110); Magnesium 1.5 mg/dL (1.5-2.4); Potassium 4.1 mmol/L (3.5-5.5); Sodium 140 mmol/L (135-145)
[2024-08-18 08:49] LABS: ALT 9 U/L (8-44); AST 12 U/L (13-35); Albumin 3.2 g/dL (3.8-4.9); Albumin/Globulin Ratio 1.33 Ratio (1.60-3.17); Alkaline Phosphatase 74 U/L (41-126); Calcium 8.4 mg/dL (8.7-10.3); Globulin 2.4 g/dL (1.6-3.3); Total Bilirubin <0.2 mg/dL (0.3-1.2); Total Protein 5.6 g/dL (6.2-8.2)
[2024-08-18] MEDS: MAGNESIUM SULFATE-D5W PMX 1 GM in DEXTROSE/WATER 1 100ML.BAG IVPB SCH (11:48)
[2024-08-18 12:38] LABS: Glucose,Whole Blood 318 mg/dL (70-110)
[2024-08-18 13:05] VITALS: BP 151/86; PULSE 80; TEMP 97.9
--- NOTE | 2024-08-18 14:25 | P.DS ---
Providers Date of admission: 08/16/24 22:02 Expected date of discharge: 08/18/24 Attending physician: Bebo Yi MD Primary care physician: Delmy Morris Hospital Course: Final diagnosis Weakness with falls and gait dysfunction Hypomagnesemia at 1.0 and replaced and at 2.0 Diabetes mellitus, type II, uncontrolled with hyperglycemia Abnormal urinalysis, likely asymptomatic bacteriuria as patient denies any pain, burning, or frequency with urination Chronic vomiting, reports when she wakes up she vomits every morning and has for years Chronic constipation GI prophylaxis DVT prophylaxis No code Discharge disposition Patient is being discharged in a stable condition with guarded prognosis to [facility]. Patient will follow-up with Dr. Delmy Morris in the outpatient setting upon discharge. Patient is to continue with current medications and also recommend outpatient follow-up with podiatry as scheduled. Total time taken is greater than 35 minutes. Hospital course This is a 78-year-old female who was recently admitted with weakness and falls with gait dysfunction becoming progressively more weak being closely monitored. Patient evaluated by physical therapy and barely able to walk recommending rehab and patient and family are agreeable. Her who is her caregiver also uses a walker and/or cane with gait and patient is becoming more weak and difficulty to ambulate. Patient would benefit from continued PT/OT therapy daily for increase in strength and mobility. Patient did have a urine sample done in the ER as a standard order and noted to be positive although patient is not reporting any pain, burning, frequency with urination likely asymptomatic bacteriuria. Patient did receive a dose of ceftriaxone in the ER and will not be continued on antibiotics outpatient. Patient family does report she has chronic constipation issues and would recommend bowel regimen. Patient is a diabetic poorly controlled with hyperglycemia and hemoglobin A1c is 9.6. Patient is insulin-dependent and recommend sliding scale in addition to long- acting. Currently no reports of chest pain, shortness of breath, or palpitations. Patient is afebrile. No reports of nausea or vomiting and patient is tolerating diet. Patient will be going to [facility] today. High risk for readmissions given significant comorbidities. Physical exam: Gen: This is a 78-year-old female who is awake, alert and oriented x 2-3, baseline, well-developed, elderly appearing HEENT: Head is atraumatic, normocephalic. Pupils equal, round. Sclerae is anicteric. NECK: Supple. No JVD. No lymphadenopathy. No thyromegaly. LUNGS: Diminished breath sounds bilaterally otherwise clear to auscultation. No wheezes or rhonchi. No intercostal retractions. HEART: S1, S2 are muffled ABDOMEN: Soft. Obese bowel sounds are present. No masses. No tenderness. EXTREMITIES: No pedal edema. No calf tenderness. NEUROLOGICAL: Patient is awake, alert and oriented x2-3. Cranial nerves 2 through 12 are grossly intact. Diffusely weak Please refer to medication reconciliation sheet for a list of medications. The impression and plan of care has been dictated by Alley Arriola, Nurse Practitioner as directed. Dr. Yanni MD I have performed a history and examination and MDM of this patient, discussed the same with the dictator, and agree with the dictator's assessment and plan as written ,documented as a scribe. Based on total visit time, I have performed more than 50% of the visit. Patient Condition at Discharge: Fair Plan - Discharge Summary Discharge Rx Participant: No New Discharge Prescriptions: New INSULIN LISPRO (HumaLOG) [HumaLOG] 0 unit SQ ACHS each Acetaminophen Tab [Tylenol] 650 mg PO Q6HR PRN tab PRN Reason: Mild Pain Or Fever > 100.5 Continue buPROPion [Wellbutrin] 100 mg PO BID Changed Insulin Glargine (Lantus) [Lantus Vial] 25 unit SQ HS #0 Discharge Medication List buPROPion [Wellbutrin] 100 mg PO BID 11/15/23 [History] Acetaminophen Tab [Tylenol] 650 mg PO Q6HR PRN tab 08/18/24 [Rx] INSULIN LISPRO (HumaLOG) [HumaLOG] 0 unit SQ ACHS each 08/18/24 [Rx] Insulin Glargine (Lantus) [Lantus Vial] 25 unit SQ HS #0 08/18/24 [Rx] Follow up Appointment(s)/Referral(s): iMke Butt MD [STAFF PHYSICIAN] - 1 Week Delmy Morris MD [Primary Care Provider] - 1-2 days Ambulatory/Diagnostic Orders: Basic Metabolic Panel [LAB.AMB] Time Frame: 3 Days, Location: None Selected Activity/Diet/Wound Care/Special Instructions: Patient is going to [facility] Activity as tolerated Continue heart healthy diabetic diet Continue monitoring Accu-Cheks before meals and at bedtime NovoLog sliding scale 0-150 equals 0 units 151-200 equals 2 units 201-250 equals 4 units 251-300 equals 6 units 301-350 equals 8 units 351-400 equals 10 units Please notify provider if blood sugar is 400 or above Continue long-acting and may adjust accordingly, recently adjusted to 25 units at night Recommend podiatry and nail care outpatient Discharge Disposition: TRANSFER TO SNF/ECF
[2024-08-18 15:24] VITALS: BMI 25.7
[2024-08-18 17:19] LABS: Glucose,Whole Blood 290 mg/dL (70-110)
[2024-08-18] MEDS ORDERED: INSULIN GLARGINE (LANTUS) 100 UNIT/ML SYR SQ SCH (21:00)
== END 2024-08-18 17:35 | DRG 641 ==
LOC: EC 19:48 → 5NMEDONC 22:01 → OBSVTOIN 22:02 → 5NMEDONC 08-17 06:31
PROVIDERS: ADMIT Internal Medicine; ATTEND Internal Medicine
DX: E83.42 Hypomagnesemia (principal); E11.65 Type 2 diabetes mellitus with hyperglycemia; N39.0 Urinary tract infection, site not specified; Z79.4 Long term (current) use of insulin; K59.09 Other constipation; Z11.52 Encounter for screening for COVID-19; Z79.899 Other long term (current) drug therapy; R53.1 Weakness; Z91.81 History of falling; W19.XXXA Unspecified fall, initial encounter; Y92.099 Unspecified place in other non-institutional residence as the place of occurrence of the external cause
CPT/HCPCS: 36415; 70450; 71046; 72125; 80053; 81001; 83036; 83605; 83735; 84484; 85025; 85610; 85730; 87077; 87086; 87186; 87636; 93005; 96365; 96366; 96375; 96376; 99285

== ENCOUNTER 2024-09-18 12:37 | Observation (INO) | payer MEDICARE ==
--- NOTE | 2024-09-18 12:59 | ED ---
Weakness HPI - General Chief complaint: Weakness Stated complaint: Weakness Time Seen by Provider: 09/18/24 12:59 Source: patient, EMS, RN notes reviewed, old records reviewed Mode of arrival: EMS Limitations: no limitations - History of Present Illness Initial comments: 78-year-old female presented to the ER via EMS for evaluation of a fall. Patient states she was recently admitted to [facility] for rehabilitation due to weakness. She was discharged yesterday and is currently residing at home with her . She states while attempting to stand to get into her wheelchair this morning with the assistance of her she accidentally fell as her legs were "too weak". Patient states she "believes she left [facility] too soon". Patient does not believe she hit her head. She denies any loss of consciousness or blood thinner use. She denies any dizziness, lightheadedness, chest pain or shortness of breath prior to fall. She was reporting most of her pain over her right first digit as her toenail was tore away from her skin during the fall. Patient denies any current chest pain, shortness of breath, dizziness, lightheadedness, nausea, vomiting, diarrhea, abdominal pain, urinary complaints. No other complaints. Patient continually reports she feels "weak". - Related Data Home Medications Medication Instructions Recorded Confirmed buPROPion [Wellbutrin] 100 mg PO BID 11/15/23 08/17/24 Previous Rx's Medication Instructions Recorded Acetaminophen Tab [Tylenol] 650 mg PO Q6HR PRN tab 08/18/24 INSULIN LISPRO (HumaLOG) [HumaLOG] 0 unit SQ ACHS each 08/18/24 Insulin Glargine (Lantus) [Lantus 25 unit SQ HS #0 08/18/24 Vial] Allergies Allergy/AdvReac Type Severity Reaction Status Date / Time No Known Allergies Allergy Verified 09/18/24 12:44 Review of Systems ROS Statement: Those systems with pertinent positive or pertinent negative responses have been documented in the HPI. ROS Other: All systems not noted in ROS Statement are negative. Past Medical History Past Medical History: Diabetes Mellitus History of Any Multi-Drug Resistant Organisms: MRSA Date of last positivie culture/infection: 04/13/23 MDRO Source:: Right Heel Past Surgical History: No Surgical Hx Reported Past Psychological History: No Psychological Hx Reported Smoking Status: Never smoker Past Alcohol Use History: None Reported Past Drug Use History: None Reported General Exam Limitations: no limitations General appearance: alert, in no apparent distress Respiratory exam: Present: normal lung sounds bilaterally. Absent: respiratory distress, wheezes, rales, rhonchi, stridor Cardiovascular Exam: Present: regular rate, normal rhythm, normal heart sounds. Absent: systolic murmur, diastolic murmur, rubs, gallop, clicks GI/Abdominal exam: Present: soft, normal bowel sounds. Absent: distended, tenderness, guarding, rebound, rigid Extremities exam: Present: normal inspection, full ROM, normal capillary refill. Absent: tenderness, pedal edema, joint swelling, calf tenderness Neurological exam: Present: alert, CN II-XII intact, other (Oriented person and place) Skin exam: Present: warm, dry, intact, normal color. Absent: rash Course Vital Signs 09/18/24 09/18/24 12:39 15:09 Temperature 97.8 F Pulse Rate 83 86 Respiratory 18 18 Rate Blood Pressure 130/83 167/92 O2 Sat by Pulse 97 99 Oximetry - Reevaluation(s) Reevaluation #1: 09/18/24 15:[address] Ibarra for admission. EKG Findings - EKG Comments: EKG Findings:: EKG taken at 13: 23 showing a sinus rhythm no acute ST segment elevations or depressions. Ventricular rate 81, UT interval 157, QRS duration 76, QT/QTc 369/407. Medical Decision Making - Medical Decision Making Was pt. sent in by a medical professional or institution (, PA, PRODUCT DEVELOPMENT ENGINEER, urgent care, hospital, or shelter...) When possible be specific @ -No Did you speak to anyone other than the patient for history (EMS, parent, family, police, friend...)? What history was obtained from this source @ -No Did you review nursing and triage notes (agree or disagree)? Why? @ -I reviewed and agree with nursing and triage notes Were old charts reviewed (outside hosp., previous admission, EMS record, old EKG, old radiological studies, urgent care reports/EKG's, shelter records)? Report findings @ -I reviewed ER visit and admission from 08-16-2024. Patient seen here for similar complaint. Patient was admitted for hypomagnesemia and UTI. Patient was ultimately discharged to [facility] for rehabilitation. Differential Diagnosis (chest pain, altered mental status, abdominal pain women, abdominal pain men, vaginal bleeding, weakness, fever, dyspnea, syncope, headache, dizziness, GI bleed, back pain, seizure, CVA, palpatations, mental health, musculoskeletal)? @ -Differential Weakness:Hypoglycemia, shock, sepsis, hyponatremia, anemia, infection, ME, ETOH, adverse medicine reaction, overdose, stroke, this is not meant to be an all-inclusive list. EKG interpreted by me (3pts min.). @ -As above X-rays interpreted by me (1pt min.). @ -CXR interpreted me negative for focal consolidations, pneumothorax or pleural effusions. CT interpreted by me (1pt min.). @ -CT brain negative for acute intracranial process. U/S interpreted by me (1pt. min.). @ -None done What testing was considered but not performed or refused? (CT, X-rays, U/S, labs)? Why? @ -None What meds were considered but not given or refused? Why? @ -None Did you discuss the management of the patient with other professionals (professionals i.e. , PA, PRODUCT DEVELOPMENT ENGINEER, lab, RT, psych nurse, director social, land title examiner, teacher, chief procurement officer, case resolution specialist)? Give summary @ -Case discussed at length with ER case resolution specialist. She spoke with [facility] and states patient was released on 09-16-2024. They did offer long-term placement in which refused. Patient discharged home. Case also discussed with Dr. Ibarra for admission. Was smoking cessation discussed for >3mins.? @ -No Was critical care preformed (if so, how long)? @ -No Were there social determinants of health that impacted care today? How? (Homelessness, low income, unemployed, alcoholism, drug addiction, transportation, low edu. Level, literacy, decrease access to med. care, intermediate, rehab)? @ -No Was there de-escalation of care discussed even if they declined (Discuss DNR or withdrawal of care, Hospice)? DNR status @ -No What co-morbidities impacted this encounter? (DM, HTN, Smoking, COPD, CAD, Cancer, CVA, ARF, Chemo, Hep., AIDS, mental health diagnosis, sleep apnea, morbid obesity)? @ -Diabetes mellitus Was patient admitted / discharged? Hospital course, mention meds given and route, prescriptions, significant lab abnormalities, going to OR and other pertinent info. @ -Admitted. 78-year-old female presented the ER via EMS for evaluation of fall and weakness. Upon rooming, history and physical exam completed. Vitals w ithin acceptable limits. Patient had no signs of acute distress nontoxic- appearing. Laboratory studies concerning mild dehydration with a creatinine 1.38 for which patient received IV fluid bolus. Hypomagnesemia 1.4 this was supplemented. Troponin detectable. EKG showing a sinus rhythm. Viral swabs negative. CXR negative for acute process. Right foot x-ray negative for acute process. CT brain performed as uncertain head injury after fall this is also negative for acute intracranial process. Given patient's inability to ambulate, weakness and recent falls admission was considered and accepted by Dr. Ibarra. Case management, physical therapy and Occupational Therapy on consult. Patient is agreeable. Case discussed with ED attending, Dr. Acosta. Undiagnosed new problem with uncertain prognosis? @ -No Drug Therapy requiring intensive monitoring for toxicity (Heparin, Nitro, Insulin, Cardizem)? @ -No Were any procedures done? @ -No Diagnosis/symptom? @ -Hypomagnesemia/weakness Acute, or Chronic, or Acute on Chronic? @ -Acute Uncomplicated (without systemic symptoms) or Complicated (systemic symptoms)? @ -Complicated Side effects of treatment? @ -No Exacerbation, Progression, or Severe Exacerbation? @ -No Poses a threat to life or bodily function? How? (Chest pain, USA, ME, pneumonia, PE, COPD, DKA, ARF, appy, cholecystitis, CVA, Diverticulitis, Homicidal, Suicidal, threat to staff... and all critical care pts) @ -Yes, falls can lead to life-threatening injuries. - Lab Data Result diagrams: 09/18/24 13:30 09/18/24 13:30 Lab Results 09/18/24 09/18/24 09/18/24 Range/Units 13:30 13:30 13:30 WBC 7.0 (3.8-10.6) k/uL RBC 4.73 (3.80-5.40) m/uL Hgb 14.8 (11.4-16.0) gm/dL Hct 45.8 (34.0-46.0) % MCV 96.6 (80.0-100.0) fL MCH 31.2 (25.0-35.0) pg MCHC 32.2 (31.0-37.0) g/dL RDW 13.3 (11.5-15.5) % Plt Count 281 (150-450) k/uL MPV 8.1 Neutrophils % 58 % Lymphocytes % 30 % Monocytes % 7 % Eosinophils % 2 % Basophils % 1 % Neutrophils # 4.1 (1.3-7.7) k/uL Lymphocytes # 2.1 (1.0-4.8) k/uL Monocytes # 0.5 (0-1.0) k/uL Eosinophils # 0.2 (0-0.7) k/uL Basophils # 0.0 (0-0.2) k/uL PT 10.9 (10.0-12.5) sec INR 1.0 (<1.2) APTT 23.3 (22.0-30.0) sec Sodium 140 (137-145) mmol/L Potassium 4.0 (3.5-5.1) mmol/L Chloride 100 (98-107) mmol/L Carbon Dioxide 29 (22-30) mmol/L Anion Gap 11 mmol/L BUN 17 (7-17) mg/dL Creatinine 1.38 H (0.52-1.04) mg/dL Est GFR (CKD-EPI)AfAm 43 (>60 ml/min/1.73 sqM) Est GFR (CKD-EPI)NonAf 37 (>60 ml/min/1.73 sqM) Glucose 119 H (74-99) mg/dL Plasma Lactic Acid Nic (0.7-2.0) mmol/L Calcium 9.7 (8.4-10.2) mg/dL Magnesium 1.4 L (1.6-2.3) mg/dL Total Bilirubin 0.7 (0.2-1.3) mg/dL AST 20 (14-36) U/L ALT 14 (4-34) U/L Alkaline Phosphatase 78 (38-126) U/L Troponin I (0.000-0.034) ng/mL Total Protein 7.0 (6.3-8.2) g/dL Albumin 3.8 (3.5-5.0) g/dL Influenza Type A (PCR) (Not Detectd) Influenza Type B (PCR) (Not Detectd) RSV (PCR) (Not Detectd) SARS-CoV-2 (PCR) (Not Detectd) 09/18/24 09/18/24 09/18/24 Range/Units 13:30 13:30 13:30 WBC (3.8-10.6) k/uL RBC (3.80-5.40) m/uL Hgb (11.4-16.0) gm/dL Hct (34.0-46.0) % MCV (80.0-100.0) fL MCH (25.0-35.0) pg MCHC (31.0-37.0) g/dL RDW (11.5-15.5) % Plt Count (150-450) k/uL MPV Neutrophils % % Lymphocytes % % Monocytes % % Eosinophils % % Basophils % % Neutrophils # (1.3-7.7) k/uL Lymphocytes # (1.0-4.8) k/uL Monocytes # (0-1.0) k/uL Eosinophils # (0-0.7) k/uL Basophils # (0-0.2) k/uL PT (10.0-12.5) sec INR (<1.2) APTT (22.0-30.0) sec Sodium (137-145) mmol/L Potassium (3.5-5.1) mmol/L Chloride (98-107) mmol/L Carbon Dioxide (22-30) mmol/L Anion Gap mmol/L BUN (7-17) mg/dL Creatinine (0.52-1.04) mg/dL Est GFR (CKD-EPI)AfAm (>60 ml/min/1.73 sqM) Est GFR (CKD-EPI)NonAf (>60 ml/min/1.73 sqM) Glucose (74-99) mg/dL Plasma Lactic Acid Nic 2.0 (0.7-2.0) mmol/L Calcium (8.4-10.2) mg/dL Magnesium (1.6-2.3) mg/dL Total Bilirubin (0.2-1.3) mg/dL AST (14-36) U/L ALT (4-34) U/L Alkaline Phosphatase (38-126) U/L Troponin I <0.012 (0.000-0.034) ng/mL Total Protein (6.3-8.2) g/dL Albumin (3.5-5.0) g/dL Influenza Type A (PCR) Not Detected (Not Detectd) Influenza Type B (PCR) Not Detected (Not Detectd) RSV (PCR) Not Detected (Not Detectd) SARS-CoV-2 (PCR) Not Detected (Not Detectd) - Radiology Data Radiology results: report reviewed, image reviewed Disposition Clinical Impression: Hypomagnesemia, Weakness Disposition: [facility] Condition: Stable Referrals: Delmy Morris MD [Primary Care Provider] - 1-2 days Forms: Adult Foster [facility] List, Assisted Living Facilities Time of Disposition: 15:23
[2024-09-18 13:48] LABS: Basophils % (A) 1 %; Eosinophils # (A) 0.2 k/uL (0-0.7); Eosinophils % (A) 2 %; HCT 45.8 % (34.0-46.0); HGB 14.8 gm/dL (11.4-16.0); Lymphocytes # (A) 2.1 k/uL (1.0-4.8); Lymphocytes % (A) 30 %; MCH 31.2 pg (25.0-35.0); MCHC 32.2 g/dL (31.0-37.0); MCV 96.6 fL (80.0-100.0); Mean Platelet Volume 8.1; Monocytes # (A) 0.5 k/uL (0-1.0); Monocytes % (A) 7 %; Neutrophils # (A) 4.1 k/uL (1.3-7.7); Neutrophils % (A) 58 %; Platelet Count 281 k/uL (150-450); RBC 4.73 m/uL (3.80-5.40); RDW 13.3 % (11.5-15.5)
[2024-09-18 13:53] LABS: ALT 14 U/L (4-34); AST 20 U/L (14-36); African American GFR (CKD) 43 (>60 ml/min/1.73 sqM); Albumin 3.8 g/dL (3.5-5.0); Alkaline Phosphatase 78 U/L (38-126); Anion Gap 11 mmol/L; Blood Urea Nitrogen 17 mg/dL (7-17); Calcium 9.7 mg/dL (8.4-10.2); Carbon Dioxide 29 mmol/L (22-30); Chloride 100 mmol/L (98-107); Glucose 119 mg/dL (74-99); Magnesium 1.4 mg/dL (1.6-2.3); Non-African American GFR(CKD) 37 (>60 ml/min/1.73 sqM); Partial Thromboplastin Time 23.3 sec (22.0-30.0); Prothrombin Time 10.9 sec (10.0-12.5); Sodium 140 mmol/L (137-145); Total Bilirubin 0.7 mg/dL (0.2-1.3)
--- NOTE | 2024-09-18 14:09 | XR ---
EXAMINATION TYPE: XR chest 2V DATE OF EXAM: 09/18/2024 CLINICAL INDICATION: Female, 78 years old with history of Weakness, TECHNIQUE: Frontal and lateral views of the chest are obtained. COMPARISON: Chest x-ray August 16, 2024 FINDINGS: Somewhat low lung volumes redemonstrated. There is no focal air space opacity, pleural eff usion, or pneumothorax seen. The cardiac silhouette size is stable and within normal limits. The o sseous structures are intact. IMPRESSION: No acute cardiopulmonary process. [facility], , 09/18/2024 2:07 PM
[2024-09-18 14:10] LABS: Influenza A Not Detected (Not Detectd); Influenza B Not Detected (Not Detectd); RSV Not Detected (Not Detectd)
--- NOTE | 2024-09-18 14:12 | XR ---
EXAMINATION TYPE: XR foot complete RT DATE OF EXAM: 09/18/2024 CLINICAL INDICATION: Female, 78 years old with history of first digit pain, pain TECHNIQUE: Frontal, lateral, and oblique images of the right foot are obtained. COMPARISON: Right foot x-rays May 18, 2023 FINDINGS: Osseous structures are demineralized which is noted to lower the radiographic sensitivity. There is no acute fracture/dislocation evident in the right foot. Hallux valgus positioning first me tatarsophalangeal joint. Flexion in the third through fifth toes is present. Small to moderate size i nferior calcaneal spur is redemonstrated. Overlying soft tissue is unremarkable. IMPRESSION: As above. No significant change from most recent prior. [facility], , 09/18/2024 2:09 PM
--- NOTE | 2024-09-18 14:14 | CT ---
EXAMINATION TYPE: CT brain wo con CT DLP: 1096.4 mGycm, Automated exposure control for dose reduction was used. DATE OF EXAM: 09/18/2024 2:08 PM COMPARISON: CT brain and C-spine 08/16/2024, MRI brain 03/23/2023, CT brain 03/20/2023, CTA head and nec k 03/20/2023 CLINICAL INDICATION:Female, 78 years old with history of weakness/fall, FALL TECHNIQUE: Brain: Multiple axial CT images of the brain were obtained without IV contrast. . Coronal and sagitta l reformats reviewed. FINDINGS: Brain: Extra-axial spaces: No abnormal extra-axial fluid collections. Small anterior falx lipoma. Ventricular system: Within normal limits Cerebral parenchyma: No acute intraparenchymal hemorrhage or mass effect. The wilde-white junction is well differentiated. Confluent hypoattenuating areas are seen within the periventricular and subcort ical white matter. Cerebellum: Unremarkable. Mass effect: No evidence of midline shift. Intracranial vasculature: Atherosclerotic calcifications of the intracranial vessels. Soft tissues: Normal. Calvarium/osseous structures: No depressed skull fracture. Paranasal sinuses and mastoid air cells: Mild scattered paranasal sinus disease. Mastoid air cells ar e clear. Visualized orbits: Orbital contents are intact. IMPRESSION: 1. No acute intracranial process. 2. Nonspecific moderate white matter changes, likely secondary to chronic small vessel ischemic disea se. [facility], , 09/18/2024 2:12 PM
[2024-09-18] MEDS: SODIUM CHLORIDE 0.9% 500 ML 500 ML IV ONE (14:19)
[2024-09-18] MEDS: ACETAMINOPHEN TAB 325 MG TAB PO STA (14:21)
[2024-09-18] MEDS ORDERED: NALOXONE 0.4 MG/ML 1 ML VIAL IV PRN (15:21)
[2024-09-18] MEDS: MAGNESIUM SULFATE-D5W PMX 1 GM in DEXTROSE/WATER 1 100ML.BAG IVPB SCH (16:12)
[2024-09-18 18:56] LABS: Appearance,Urine Clear (Clear); Bilirubin,Urine Negative (Negative); Blood,Urine Negative (Negative); Color,Urine Light Yellow; Glucose,Urine (UA) Negative (Negative); Ketones,Urine Negative (Negative); Leukocyte Esterase,Urine Negative (Negative); Nitrite,Urine Negative (Negative); Protein,Urine Negative (Negative); Specific Gravity,Urine 1.019 (1.001-1.035); Urobilinogen,Urine <2.0 mg/dL (<2.0)
[2024-09-18] MEDS ORDERED: NA PHOS,M-B/NA PHOS,DI-BA 133 ML ENEMA RECTAL PRN (19:21)
[2024-09-18] MEDS ORDERED: bisacodyL 10 MG SUPP RECTAL PRN (19:21)
[2024-09-18] MEDS ORDERED: MELATONIN 3 MG TABLET PO PRN (19:23)
[2024-09-18] MEDS ORDERED: CALCIUM CARBONATE 500 MG CHEWABLE PO PRN (19:23)
[2024-09-18] MEDS ORDERED: LACTULOSE 20 GM/30 ML CUP PO PRN (19:23)
[2024-09-18] MEDS ORDERED: ONDANSETRON 4 MG/2 ML VIAL IVP PRN (19:23)
[2024-09-18] MEDS ORDERED: ALPRAZolam 0.25 MG TAB PO PRN (19:23)
[2024-09-18] MEDS ORDERED: METOCLOPRAMIDE 5 MG TAB PO PRN (19:27)
[2024-09-18] MEDS ORDERED: DEXTROSE 50% SYRINGE 50 ML IVP PRN ×2 (19:27)
--- NOTE | 2024-09-18 19:29 | P.HPIM ---
History of Present Illness H&P Date: 09/18/24 Chief Complaint: Weak in the legs This is a pleasant 78-year-old patient, follows Dr. Delmy Morris. She has had weakness in lower extremity for quite a while. Patient was recently in the hospital discharged on August 18. Was sent to rehab. wanted to take her home and decided to do so 2 days ago. Patient says she is not able to transfer and premature wheelchair-bound. At home he tried to take her to the bathroom after she fell down. Finally decided to bring her back to the hospital. Patient's right big toenail has avulsed. Cannot completely left the nailbed. Otherwise appetite is fair. Denies any other pain. No trouble with the bowels or urine. Review of systems: GEN.: None EYES: None HEENT: None NECK: None RESPIRATORY: None CARDIOVASCULAR: None GASTROINTESTINAL: None GENITOURINARY: Urinary incontinence, MUSCULOSKELETAL: Joint pains LYMPHATICS: None HEMATOLOGICAL: None PSYCHIATRY: Bit forgetful NEUROLOGICAL: Bilateral lower extremity weakness Past medical history to include: Diabetes, arthritis, Baseline gait dysfunction Social history: Does not smoke or drink alcohol. . 2 days ago was at rehab Physical examination: VITAL SIGNS: 97.8, 91, 18, 184/94, 95% room air GENERAL: Reclining in bed EYES: Pupils equal. Conjunctiva normal. HEENT: External appearance of nose and ears normal, oral cavity grossly normal. NECK: JVD not raised; masses not palpable. HEART: First and second heart sounds are normal; no edema. LUNGS: Respiratory rate normal; clear to auscultation. ABDOMEN: Soft, nontender, liver spleen not palpable, no masses palpable. PSYCH: AOx3, mood affect normal MUSCULOSKELETAL:No Clubbing/cyanosis;muscles-grossly intact. OA. Right big toe nail avulsed, attached to the base NEUROLOGICAL: Cranial nerves grossly intact; no facial asymmetry, power in the lower extremity 2/5. Sensation grossly preserved INVESTIGATIONS, reviewed in the clinical context: November 15: White count 7.7 hemoglobin 12.6 potassium 4 creatinine 1.1 November 15, 2023: White count 9 hemoglobin 13.4 platelets 277 sodium 137 potassium 4.2 BUN 16 creatinine 1.09 Influenza type A, type B, RSV, COVID-19: Not detected EKG tracing personally reviewed by me-normal sinus rhythm. Chest x-ray film personally reviewed by me-possible atelectasis CT brain: Unremarkable Investigations from January 2023 September 18: White count 17 globin 14.8 platelets 281 sodium 140 potassium 4 BUN 17 creatinine 1.38 UA: Negative Influenza type A, type B, RSV, SARS-CoV-2: Not detected Previous labs: Creatinine 1.05 on August 16, 2024 Assessment and plan: -Chronic bilateral lower extremity paresis.: chronic lower back pain. Has clinical evidence of myopathy. Denies any acute lower back pain. Sensation well-preserved. Lumbosacral x-ray in the past DJD changes. Patient was at rehab 2 days ago. Was supposed to transition to long-term care. decided to bring the patient home. Unable to care for the same. -Proximal myopathy lower extremity PT OT -Diabetic gastroparesis Dietary monitoring -Diabetes mellitus type 2, chronically on insulin Follow Accu-Cheks with sliding scale -chronic kidney disease stage III from diabetic nephropathy and hypertensive nephrosclerosis Follow renal function Creatinine 1.0 26 July 2024 -Obesity BMI 31.9 Weight loss measures -Chronic medical debility. Has been requiring a wheelchair -DNR Home medications resumed. PT OT. Patient need to go back for rehab social economist consulted. Past Medical History Past Medical History: Diabetes Mellitus History of Any Multi-Drug Resistant Organisms: MRSA Date of last positivie culture/infection: 04/13/23 MDRO Source:: Right Heel Past Surgical History: No Surgical Hx Reported Past Psychological History: No Psychological Hx Reported Smoking Status: Never smoker Past Alcohol Use History: None Reported Past Drug Use History: None Reported Medications and Allergies Home Medications Medication Instructions Recorded Confirmed Type buPROPion [Wellbutrin] 100 mg PO BID 11/15/23 09/18/24 History Acetaminophen Tab [Tylenol] 650 mg PO Q6HR PRN tab 08/18/24 09/18/24 Rx Insulin Glargine (Lantus) [Lantus 25 unit SQ HS #0 08/18/24 09/18/24 Rx Vial] Insulin Lispro [humaLOG Kwikpen] See Protocol SQ ACHS 09/18/24 09/18/24 History Magnesium Hydroxide [Milk of 7,200 mg PO DAILY PRN 09/18/24 09/18/24 History Magnesia Concentrate] Magnesium Oxide [Magnesium] 500 mg PO DAILY 09/18/24 09/18/24 History Na Phos,M-B/Na Phos,Di-Ba [Fleet 133 ml RECTAL DAILY PRN 09/18/24 09/18/24 History Adult] Sennosides [Senokot] 8.6 mg PO BID 09/18/24 09/18/24 History bisacodyL [Dulcolax] 10 mg RECTAL DAILY PRN 09/18/24 09/18/24 History Allergies Allergy/AdvReac Type Severity Reaction Status Date / Time No Known Allergies Allergy Verified 09/18/24 16:53 Physical Exam Vitals: Vital Signs Temp Pulse Resp BP Pulse Ox 09/18/24 18:00 91 18 184/94 95 09/18/24 16:00 88 18 165/87 97 09/18/24 15:09 86 18 167/92 99 09/18/24 12:39 97.8 F 83 18 130/83 97 Intake and Output 09/18/24 09/18/24 09/18/24 06:59 14:59 22:59 Other: Weight 81.647 kg Results CBC & Chem 7: 09/18/24 13:30 09/18/24 13:30 Labs: Abnormal Lab Results - Last 24 Hours (Table) 09/18/24 Range/Units 13:30 Creatinine 1.38 H (0.52-1.04) mg/dL Glucose 119 H (74-99) mg/dL Magnesium 1.4 L (1.6-2.3) mg/dL
[2024-09-18 20:07] LABS: Glucose,Whole Blood 167 mg/dL (70-110)
[2024-09-18] MEDS: SENNOSIDES 8.6 MG TAB PO SCH (22:04)
[2024-09-18] MEDS: INSULIN GLARGINE (LANTUS) 100 UNIT/ML SYR SQ SCH (22:04)
[2024-09-18] MEDS: ENOXAPARIN 40 MG/0.4 ML SYRINGE SQ SCH (22:04)
[2024-09-18] MEDS: ACETAMINOPHEN TAB 325 MG TAB PO PRN (22:04)
[2024-09-18] MEDS: buPROPion 100 MG TAB PO SCH (22:04)
[2024-09-18] MEDS: INSULIN LISPRO (HumaLOG) 100 UNIT/ML 10 mL VL SQ SCH (22:07)
[2024-09-19 06:01] LABS: Glucose,Whole Blood 106 mg/dL (70-110)
[2024-09-19 08:00] VITALS: BP 140/77; PULSE 77; RESP 17; TEMP 97.9
[2024-09-19 11:20] LABS: Glucose,Whole Blood 226 mg/dL (70-110)
--- NOTE | 2024-09-19 13:58 | P.DS ---
Providers Date of admission: 09/18/24 15:07 Expected date of discharge: 09/19/24 Attending physician: Trevor Ibarra Primary care physician: Delmy [facility] Course: Chief Complaint: Weak in the legs This is a pleasant 78-year-old patient, follows Dr. Delmy Morris. She has had weakness in lower extremity for quite a while. Patient was recently in the hospital discharged on August 18. Was sent to rehab. wanted to take her home and decided to do so 2 days ago. Patient says she is not able to transfer and premature wheelchair-bound. At home he tried to take her to the bathroom after she fell down. Finally decided to bring her back to the hospital. Patient's right big toenail has avulsed. Cannot completely left the nailbed. Otherwise appetite is fair. Denies any other pain. No trouble with the bowels or urine. August 19: Up in a recliner. Seen by physical therapy. Did about 4 feet with rolling walker. With moderate assist. insurance office manager Maurice called me that patient has been accepted at rehab. Paperwork done. Expect patient's right foot toenail to auto fall off. Discussion and discharge planning more than 35 minutes Past medical history to include: Diabetes, arthritis, Baseline gait dysfunction Social history: Does not smoke or drink alcohol. . 2 days ago was at rehab Physical examination: VITAL SIGNS: 97.9, 77, 17, 140 x 77, 96% GENERAL: Up in recliner, comfortable EYES: Pupils equal. Conjunctiva normal. HEENT: External appearance of nose and ears normal, oral cavity grossly normal. NECK: JVD not raised; masses not palpable. HEART: First and second heart sounds are normal; no edema. LUNGS: Respiratory rate normal; clear to auscultation. ABDOMEN: Soft, nontender, liver spleen not palpable, no masses palpable. PSYCH: AOx3, mood affect normal MUSCULOSKELETAL:No Clubbing/cyanosis;muscles-grossly intact. OA. Right big toe nail avulsed, attached to the base NEUROLOGICAL: Cranial nerves grossly intact; no facial asymmetry, power in the lower extremity 2/5. Sensation grossly preserved INVESTIGATIONS, reviewed in the clinical context: November 15: White count 7.7 hemoglobin 12.6 potassium 4 creatinine 1.1 November 15, 2023: White count 9 hemoglobin 13.4 platelets 277 sodium 137 potassium 4.2 BUN 16 creatinine 1.09 Influenza type A, type B, RSV, COVID-19: Not detected EKG tracing personally reviewed by me-normal sinus rhythm. Chest x-ray film personally reviewed by me-possible atelectasis CT brain: Unremarkable Investigations from January 2023 September 18: White count 17 globin 14.8 platelets 281 sodium 140 potassium 4 BUN 17 creatinine 1.38 UA: Negative Influenza type A, type B, RSV, SARS-CoV-2: Not detected Previous labs: Creatinine 1.05 on August 16, 2024 Assessment and plan: -Chronic bilateral lower extremity paresis.: chronic lower back pain. Has clinical evidence of myopathy. Denies any acute lower back pain. Sensation well-preserved. Lumbosacral x-ray in the past DJD changes. Patient was at rehab 2 days ago. decided to bring the patient home. Unable to care for the same. PT OT -Proximal myopathy lower extremity PT OT -Diabetic gastroparesis Dietary monitoring -Diabetes mellitus type 2, chronically on insulin Follow Accu-Cheks with sliding scale -chronic kidney disease stage III from diabetic nephropathy and hypertensive nephrosclerosis Follow renal function Creatinine 1.0 26 July 2024 -Obesity BMI 31.9 Weight loss measures -Acute on chronic medical debility. Has been requiring a wheelchair Did walk 4 steps with a walker. For rehab -DNR Disposition: Rehab at [facility] Past Medical History Past Medical History: Diabetes Mellitus History of Any Multi-Drug Resistant Organisms: MRSA Date of last positivie culture/infection: 04/13/23 MDRO Source:: Right Heel Past Surgical History: No Surgical Hx Reported Past Psychological History: No Psychological Hx Reported Smoking Status: Never smoker Past Alcohol Use History: None Reported Past Drug Use History: None Reported Plan - Discharge Summary Discharge Rx Participant: No New Discharge Prescriptions: No Action Magnesium Oxide [Magnesium] 500 mg PO DAILY Na Phos,M-B/Na Phos,Di-Ba [Fleet Adult] 133 ml RECTAL DAILY PRN PRN Reason: Constipation buPROPion [Wellbutrin] 100 mg PO BID Acetaminophen Tab [Tylenol] 650 mg PO Q6HR PRN tab PRN Reason: Mild Pain Or Fever > 100.5 Insulin Glargine (Lantus) [Lantus Vial] 25 unit SQ HS #0 Magnesium Hydroxide [Milk of Magnesia Concentrate] 7,200 mg PO DAILY PRN PRN Reason: Constipation Insulin Lispro [humaLOG Kwikpen] See Protocol SQ ACHS bisacodyL [Dulcolax] 10 mg RECTAL DAILY PRN PRN Reason: Constipation Sennosides [Senokot] 8.6 mg PO BID Discharge Medication List buPROPion [Wellbutrin] 100 mg PO BID 11/15/23 [History] Acetaminophen Tab [Tylenol] 650 mg PO Q6HR PRN tab 08/18/24 [Rx] Insulin Glargine (Lantus) [Lantus Vial] 25 unit SQ HS #0 08/18/24 [Rx] Insulin Lispro [humaLOG Kwikpen] See Protocol SQ ACHS 09/18/24 [History] Magnesium Hydroxide [Milk of Magnesia Concentrate] 7,200 mg PO DAILY PRN 09/18/24 [History] Magnesium Oxide [Magnesium] 500 mg PO DAILY 09/18/24 [History] Na Phos,M-B/Na Phos,Di-Ba [Fleet Adult] 133 ml RECTAL DAILY PRN 09/18/24 [History] Sennosides [Senokot] 8.6 mg PO BID 09/18/24 [History] bisacodyL [Dulcolax] 10 mg RECTAL DAILY PRN 09/18/24 [History] Follow up Appointment(s)/Referral(s): Delmy Morris MD [Primary Care Provider] - 1-2 days Discharge/Stand Alone Forms: Adult Foster Group Home List, Assisted Living Facilities
== END 2024-09-19 15:52 ==
LOC: EC 12:37 → 5NMEDONC 15:07 → 4SSUR 17:29
PROVIDERS: ADMIT Hospitalist; ATTEND Hospitalist
DX: G82.20 Paraplegia, unspecified (principal); E11.43 Type 2 diabetes mellitus with diabetic autonomic (poly)neuropathy; K31.84 Gastroparesis; G71.11 Myotonic muscular dystrophy; R53.81 Other malaise; G89.29 Other chronic pain; M54.50 Low back pain, unspecified; E83.42 Hypomagnesemia; I12.9 Hypertensive chronic kidney disease with stage 1 through stage 4 chronic kidney disease, or unspecified chronic kidney disease; N18.30 Chronic kidney disease, stage 3 unspecified; E11.22 Type 2 diabetes mellitus with diabetic chronic kidney disease; E66.9 Obesity, unspecified; Z11.52 Encounter for screening for COVID-19; Z66 Do not resuscitate; Z68.31 Body mass index [BMI] 31.0-31.9, adult; Z99.3 Dependence on wheelchair; Z79.4 Long term (current) use of insulin; Z79.899 Other long term (current) drug therapy
CPT/HCPCS: 96372; 96365; 96366; 99285; 36415; 93005; 97162; 97166; 80053; 83605; 83735; 84484; 85025; 85610; 85730; 81003; 87636; 73630; 71046; 70450; G0378 ×3; J1650; J3475